=== PATIENT | male | born 1955 | race Caucasian/White ===

== ENCOUNTER 2016-08-24 17:13 | Inpatient (IN) ==
[2016-08-24] MEDS ORDERED: Ondansetron 4 MG/2 ML VIAL IVP PRN (22:44)
[2016-08-24] MEDS ORDERED: Naloxone 0.4 MG/ML INJ IVP PRN (22:44)
[2016-08-24] MEDS ORDERED: Acetaminophen 325 MG TABLET PO PRN (22:44)
[2016-08-24] MEDS ORDERED: *HR* Dextrose 50 % in Water (Syg) 50 ML SYRINGE IVP PRN (22:48)
[2016-08-24] MEDS ORDERED: Dextrose Gel 15 GM PO PRN ×2 (22:48)
[2016-08-24] MEDS ORDERED: D5% in Water 1,000 ML IV PRN (22:48)
[2016-08-24] MEDS ORDERED: NON-FORMULARY MEDICATION 1 EACH EACH (Insulin Glargine [Lantus] 40 UNIT) SQ SCH (23:00)
--- NOTE | 2016-08-24 23:09 | Internal Med History&Physical ---
<Jillian Gomez - Last Filed: 08/24/16 23:38> Date of Encounter: 08/24/16 Time of Encounter: 20:30 Assessment and Plan (1) Elevated troponin I level Current visit: No Status: Acute 1 patient has elevated troponin at 0.11. Suspect this is related to demand ischemia we will continue to cycle cardiac troponins 2 we will consult cardiology 3 continuous cardiac monitoring (2) COPD exacerbation Current visit: No Status: Acute 1 presently no wheezing noted patient has been experiencing increasing shortness of breath with exertion he is now on any oxygen supplementation at home. He has history of COPD. We will place on oxygen and titrate to maintain SPO2 greater than 92% 2 we will continue with bronchodilators as needed (3) CAD (coronary artery disease) Current visit: No Status: Chronic 1 patient has history of coronary artery disease with stent placements. We will continue with beta lena nitrates aspirin and statin. 2 cardiac diet 3 oxygen as needed Qualifiers: Coronary Disease-Associated Artery/Lesion type: [place] artery [place] vs. transplanted heart: [place] heart Associated angina: without angina Qualified Code(s): I25.10 - Atherosclerotic heart disease of [place] coronary artery without angina pectoris (4) Chronic kidney disease, stage III (moderate) Current visit: No Status: Chronic Patient's creatinine is 1.37 which appears to be around his baseline 1.3-1.4. We will continue to monitor creatinines 2 we will avoid nephrotoxins 3 today weighing monitor intake and output 4 renal diet (5) DM type 2 (diabetes mellitus, type 2) Current visit: No Status: Chronic 1 patient is on insulin it appears his last A1c was around 10.1 in April 2016. We will continue with home basal insulin Accu-Cheks before meals and at bedtime sliding scale insulin as needed 2 diabetic diet Qualifiers: Diabetes mellitus complication status: with kidney complications Diabetes mellitus complication detail: with chronic kidney disease Diabetes mellitus technician terminal and repeater insulin use: with technician terminal and repeater use Chronic kidney disease stage: stage 3 (moderate) Qualified Code(s): E11.22 - Type 2 diabetes mellitus with diabetic chronic kidney disease; N18.3 - Chronic kidney disease, stage 3 ( moderate); Z79.4 - prison (current) use of insulin (6) Diastolic heart failure Current visit: No Status: Chronic 1 patient has history of diastolic heart failure. BNP is 422. At present time he does not appear to be fluid overloaded lung sounds are clear x-rays clear he does have some edema. We will continue with Lasix 2 oxygen as needed to maintain SPO2 greater 90% 3 low sodium diet Qualifiers: Heart failure chronicity: chronic Qualified Code(s): I50.32 - Chronic diastolic (congestive) heart failure (7) Essential hypertension Current visit: Yes Status: Acute 1 presently blood pressure is elevated patient has not taken medication today we will continue with his home lisinopril metoprolol Lasix. Goal is to maintain systolic less than 140 (8) DVT prophylaxis Current visit: Yes Status: Acute 1 heparin subcutaneous Internal Medicine - H&P: HPI Chief complaint: SOB Admitted From: Hospital to Hospital Transfer Plans for Post Hospital Care: Home History of present illness: Mr. Rodriguez is a 61 year old male with past medical history of CHF COPD CVA diabetes hyperlipidemia hypertension. According to patient's he has been expressing increasing shortness of breath particularly on exertion for the past 2-3 days. He has a history of COPD and emphysema he is not on any oxygen at home . He has increased wheezing and tightness which are not relieved with his handheld inhalers He denies any cough or sputum production fevers or chills. He does complain of a pain in his right posterior chest that radiates to subscapular region. He describes it as an ache that comes and goes and exacerbated with movement of his right arm. He has chronic swelling to his lower extremities however he has noticed increased body swelling particularly his abdomen and weight gain of approximately 50 pails over the past 2-3 months. He has history of CO in the past with stent placement last stent was placed in May. He also has a history of renal failure and was on dialysis for 4- 5 months. He has not followed up with nephrology. He was recently prescribed CPAP at night however is unable to use it due to he does not have electricity in his trailer. He denies any nausea vomiting diarrhea sick exposures. He presented to the [place] emergency department for complaints of shortness of breath. According to ER records the patient's chest x-ray was without any acute process. EKG with normal sinus rhythm and no ST-T wave abnormalities He had no leukocytosis Chem-7 was unremarkable except for an elevated blood sugar. His troponin was 0.011 BNP 422. He was transferred to [facility] for further workup and evaluation. At present time the patient is sitting up on side of bed joking with the nursing staff and eating a sandwich. He denies any chest pain or shortness of breath this time. His blood pressure is elevated however he states he has not taken any of his medication today. I reviewed this case with Dr. Johnson who agrees with plan Past Med Surg Social Fam HX - Past Medical History Medical history: arthritis, CHF, COPD, CVA, diabetes, hyperlipidemia, hypertension, myocardial infarction, renal disease, other Psychiatric history: anxiety, depression - Past Surgical History Surgical History: angioplasty/stent, other - Social History Smoking Status: Former smoker Smokeless Tobacco Status: No Alcohol use: none Drug use: marijuana - Family History Mother Adopted: No Family Member Ethnicity: Non- Living Status: Still Living Hx Family Cardiac Disorders: Yes (HTN) Hx Family Respiratory Disorders: Yes (COPD) Hx Family Cancer: No Hx Family GI Disorders: Yes (ulcers) Hx Family Endocrine Disorder: Yes (Diabetes) Hx Family Neuromuscular Disorders: No Hx Family Neurologic Disorders: No Hx Family HEENT Disorders: No Hx Family Autoimmune Disorders: No Father Adopted: [place]: THANH Family Member Ethnicity: Non- Living Status: Age at : 70 Cause of : LUNG DISEASE Hx Family Respiratory Disorders: Yes Internal Medicine - H&P: Meds Clopidogrel [Plavix] 75 mg PO DAILY 02/23/15 [History] Diazepam [Valium] 5 mg PO DAILY PRN 05/31/15 [History] Gabapentin [Neurontin] 200 mg PO BID 06/17/15 [History] Lisinopril [Zestril] 40 mg PO DAILY #30 tablet 06/20/15 [Rx] Isosorbide MONOnitrate (24 HR) [Imdur] 60 mg PO DAILY #30 tab.er.24h 12/13/15 [ Rx] Metoprolol XL (24 HR) Succ [Toprol Xl] 100 mg PO DAILY #30 tab.er.24h 12/13/15 [ Rx] Atorvastatin Calcium [Lipitor] 80 mg PO HS 12/25/15 [History] Furosemide [Lasix] 40 mg PO DAILY 12/25/15 [History] Insulin Glargine [Lantus] 40 unit SQ BID 04/24/16 [History] Albuterol Sulfate [Albuterol Inhaler] 1 - 2 puff IH Q4-6H PRN 08/24/16 [History] Allopurinol [Zyloprim 100 MG] 200 mg PO DAILY 08/24/16 [History] Calcium Carbonate [Calcium] 500 mg PO BID 08/24/16 [History] Insulin ASPART [Novolog Flexpen] 15 unit SQ TIDWM 08/24/16 [History] Tramadol HCl [Ultram] 50 mg PO QID PRN 08/24/16 [History] Allergies No Known Allergies Allergy (Verified 12/11/15 12:35) All Systems PM: A 10-system review of systems was performed and is negative for pertinent findings except as documented above in the HPI. - Constitutional Constitutional: fatigue, weight gain - Cardiovascular Cardiovascular ROS IM: chest pain, dyspnea on exertion - Respiratory Respiratory: dyspnea on exertion, wheezing - Gastrointestinal Gastrointestinal: no abdominal pain, no diarrhea, no hematemesis, no hematochezia, no melena, no nausea, no vomiting - Musculoskeletal Musculoskeletal ROS IM: no numbness, no tingling - Neurological Neurological ROS: no confusion, no convulsions, no focal weakness, no numbness, no tingling, no tremor(s) - Constitutional Vitals: Temp Pulse Resp BP Pulse Ox 97.4 F L 81 18 183/114 95 08/24/16 19:40 08/24/16 19:40 08/24/16 19:40 08/24/16 19:40 08/24/16 19:40 General appearance: Present: morbidly obese, answers questions appropriately - Head Head exam: Present: atraumatic, normocephalic - Eye Eye exam: Present: PERRL, conjuntiva pink, sclera anicteric Pupils: Present: PERRL - Respiratory Respiratory exam: Present: CTAB. Absent: accessory muscle use, rales, rhonchi, wheezes - Cardiovascular Cardiovascular exam: Present: RRR, +S1, +S2. Absent: diastolic murmur, gallop, rubs, systolic murmur - GI/Abdominal GI/Abdominal exam: Present: normal bowel sounds, soft, no peritoneal signs. Absent: distended, tenderness - Extremities Exam Extremities exam: Present: warm, radial pulses palpable and symetrical. Absent : calf tenderness, cyanotic, pedal edema - Neurological Exam Neurological exam: Present: CN II-XII intact, oriented X3, no focal deficits. Absent: pronater drift, facial droop, speech deficit - Skin Skin exam: Present: dry, intact Internal Med - H&P Results - Labs Labs: Lab work per [facility] 08/24/2016 CBC WBC 7.6, hemoglobin 14, hematocrit 44, platelets 2:15 PT 12.1, INR 1.1 PTT 34.2 Sodium 139, potassium 4.7, chloride 105 bicarbonate 24 BUN 22 creatinine 1.37 glucose 306 Troponin 0.11 BNP 422 - EKG Data EKG shows normal: sinus rhythm - Diagnostic Studies Chest x-ray Additional comments: No acute process per radiology reading <Sharon Johnson - Last Filed: 08/25/16 19:49> Date of Encounter: 08/24/16 Internal Medicine - H&P: HPI History of present illness: Mr. Rodriguez is a 61 year old male All Systems PM: A 10-system review of systems was performed and is negative for pertinent findings except as documented above in the HPI. - Constitutional Vitals: Temp Pulse Resp BP Pulse Ox 98.2 F 76 17 162/80 98 08/25/16 18:44 08/25/16 18:44 08/25/16 18:44 08/25/16 18:44 08/25/16 18:44 Internal Med - H&P Results - Labs CBC & Chem 7: 08/25/16 04:34 08/25/16 04:34 Labs: Short CBC 08/25/16 Range/Units 04:34 WBC 8.5 (4.3-11.1) K/mcL Hgb 13.8 (12.9-16.9) g/dL Hct 44.8 (37.5-50.1) % Plt Count 226 (140-400) K/mcL Neutrophils # 4.9 (1.6-8.9) K/mcL BMP 08/25/16 04:34 Sodium 138 Potassium 4.0 Chloride 105 Carbon Dioxide 24 BUN 26 Creatinine 1.50 H Glucose 192 H Calcium 8.8 Cardiac Enzymes 08/24/16 08/25/16 Range/Units 23:02 04:34 Troponin I 0.09 H* 0.07 H* (0-0.03) ng/mL Urine 08/25/16 Range/Units 14:52 Urine Color Yellow (Yellow) Urine Clarity Clear (Clear) Urine pH 5.5 (5.0-8.0) pH Units Ur Specific [place] 1.012 (1.010-1.025) Urine Protein 100 H (Neg-Trace) mg/dL Urine Glucose (UA) 100 H (Normal) mg/dL - Attending Attestation I examined this patient and my medical decision-making was reviewed with the COMMUNICATION PROFESSOR/PA/Advanced Practice Nurse/Resident Physician. I agree with the documented findings, disposition and treatment plan as described except to the extent set forth below. 61 Y/M with h/o COPD, CKD stage 3 (prior h/o temporary hemodialysis per pt), presents with SOB, orthopnea for long time. COPD exacerbation, volume overload. Troponin 0.11. Treat with IV lasix, brochodilators. Low sodium diet, fluid restriction. Cardiology and Nephrology consult.
[2016-08-24] MEDS: Insulin DETEMIR 100 UNIT/ML X5UNITS SQ SCH (23:17)
[2016-08-24] MEDS: Insulin LISPRO 300 UNITS/3 ML VIAL SQ SCH (23:19)
[2016-08-24] MEDS: Lisinopril 20 MG TABLET PO SCH (23:19)
[2016-08-24] MEDS: Metoprolol XL (24 HR) Succ 50 MG TAB.ER.24H PO SCH (23:19)
[2016-08-24] MEDS: *HR* HYDROcodone/Acet 5/325 mg TABLET PO PRN (23:19)
[2016-08-25] MEDS: Furosemide 40 MG/4 ML VIAL IVP SCH ×2 (00:29→08:06)
[2016-08-25] MEDS: Albuterol 2.5 MG/3 ML NEBULIZER IH SCH ×4 (03:55→21:06)
[2016-08-25 05:02] LABS: Basophils % 0.4 %; Eosinophils # 0.5 K/mcL (0.0-0.6); Eosinophils % 5.9 %; Hematocrit 44.8 % (37.5-50.1); Hemoglobin 13.8 g/dL (12.9-16.9); Immature Granulocytes % 0.4 % (0-4); Lymphocytes # 2.5 K/mcL (0.6-4.6); Lymphocytes % 29.6 %; Mean Corpuscular HGB Conc 30.8 g/dL (31.6-35.5); Mean Corpuscular Hemoglobin 25.3 pg (28.0-33.3); Mean Corpuscular Volume 82.2 fL (83.0-100.0); Monocytes # 0.6 K/mcL (0.0-1.3); Monocytes % 6.7 %; Neutrophils # 4.9 K/mcL (1.6-8.9); Platelet Count 226 K/mcL (140-400); Red Blood Count 5.45 M/mcL (4.19-5.50); Red Cell Distribution Width 14.8 % (11.5-14.5)
[2016-08-25 05:21] LABS: Calcium 8.8 mg/dL (8.6-10.8); Chol/HDL Ratio 4.3 (0-4.9); Magnesium 1.6 mg/dL (1.6-2.6)
[2016-08-25] MEDS: *HR* Heparin 5,000 UNIT/ML VIAL SQ SCH ×2 (06:06→16:04)
[2016-08-25] MEDS: diazePAM 5 MG TABLET PO PRN (08:04)
[2016-08-25] MEDS: Gabapentin 100 MG CAPSULE PO SCH ×2 (08:04→21:18)
[2016-08-25] MEDS: Lisinopril 20 MG TABLET PO SCH (08:04)
[2016-08-25] MEDS: Isosorbide MONOnitrate (24 HR) 60 MG TAB.ER.24H PO SCH (08:04)
[2016-08-25] MEDS: Metoprolol XL (24 HR) Succ 50 MG TAB.ER.24H PO SCH (08:04)
[2016-08-25] MEDS: *HR* HYDROcodone/Acet 5/325 mg TABLET PO PRN ×5 (08:05→17:55)
[2016-08-25] MEDS: Insulin LISPRO 300 UNITS/3 ML VIAL SQ SCH ×4 (08:07→21:17)
[2016-08-25] MEDS: Insulin DETEMIR 100 UNIT/ML X5UNITS SQ SCH ×2 (08:40→21:18)
--- NOTE | 2016-08-25 12:47 | Cardiology Consult Note ---
Date of Encounter: 08/25/16 Time of Encounter: 12:44 Assessment and Plan (1) COPD exacerbation Current Visit: No Status: Acute Defer to admitting service. (2) Congestive heart failure with left ventricular diastolic dysfunction, NYHA class 1 Current Visit: No Status: Acute Diuresis as renal function tolerates. Creatinine is up slightly today. (3) CAD (coronary artery disease) Current Visit: No Status: Chronic Previous sxs were mostly TIWARI --similar to current presentation. I suspect sxs mostly Pulm in origin - but recommend Joann-Stress to assess Echo also ordered. Qualifiers: Coronary Disease-Associated Artery/Lesion type: [place] artery [place] vs. transplanted heart: [place] heart Associated angina: without angina Qualified Code(s): I25.10 - Atherosclerotic heart disease of [place] coronary artery without angina pectoris (4) Chronic kidney disease, stage III (moderate) Current Visit: No Status: Chronic Creatinine up slightly - would diurese as possible. Discussion w patient/family: The assessment and plan as outlined above was discussed with the patient and/or family members who expressed understanding and agreement. All questions were answered. Thank you for involving us in the care of your patient. Please call with any questions. History of Present Illness Consult date: 08/25/16 Consult reason: SOB Chief complaint: same History of present illness: Mr. Rodriguez is a 61 year old male with known CAD, COPD, and multiple CV risk factors presents with complaints of progressive SOB with minimal exertion ( walking to the bathroom). Denies any chest pain or pressure - but reports this SOB is identical to his previous [place] sxs. Reports that he has some chronic LE edema - unchanged lately. Denies any other recent sxs. Work up has been notable for trivial increase in Trop, no acute EKG changes. Creatinine is elevated. Denies any other recent issues. Past Med Surg Social Fam HX - Past Medical History Medical history: arthritis, CHF, COPD, CVA, diabetes, hyperlipidemia, hypertension, myocardial infarction, renal disease, other Psychiatric history: anxiety, depression - Past Surgical History Surgical History: angioplasty/stent, other - Social History Smoking Status: Former smoker Smokeless Tobacco Status: No Alcohol use: none Drug use: marijuana - Family History Mother Adopted: No Family Member Ethnicity: Non- Living Status: Still Living Hx Family Cardiac Disorders: Yes (HTN) Hx Family Respiratory Disorders: Yes (COPD) Hx Family Cancer: No Hx Family GI Disorders: Yes (ulcers) Hx Family Endocrine Disorder: Yes (Diabetes) Hx Family Neuromuscular Disorders: No Hx Family Neurologic Disorders: No Hx Family HEENT Disorders: No Hx Family Autoimmune Disorders: No Father Adopted: [place]: THANH Family Member Ethnicity: Non- Living Status: Age at : 70 Cause of : LUNG DISEASE Hx Family Respiratory Disorders: Yes Medications and Allergies Clopidogrel [Plavix] 75 mg PO DAILY 02/23/15 [History] Diazepam [Valium] 5 mg PO DAILY PRN 05/31/15 [History] Gabapentin [Neurontin] 200 mg PO BID 06/17/15 [History] Lisinopril [Zestril] 40 mg PO DAILY #30 tablet 06/20/15 [Rx] Isosorbide MONOnitrate (24 HR) [Imdur] 60 mg PO DAILY #30 tab.er.24h 12/13/15 [ Rx] Metoprolol XL (24 HR) Succ [Toprol Xl] 100 mg PO DAILY #30 tab.er.24h 12/13/15 [ Rx] Atorvastatin Calcium [Lipitor] 80 mg PO HS 12/25/15 [History] Furosemide [Lasix] 40 mg PO DAILY 12/25/15 [History] Insulin Glargine [Lantus] 40 unit SQ BID 04/24/16 [History] Albuterol Sulfate [Albuterol Inhaler] 1 - 2 puff IH Q4-6H PRN 08/24/16 [History] Allopurinol [Zyloprim 100 MG] 200 mg PO DAILY 08/24/16 [History] Calcium Carbonate [Calcium] 500 mg PO BID 08/24/16 [History] Insulin ASPART [Novolog Flexpen] 15 unit SQ TIDWM 08/24/16 [History] Tramadol HCl [Ultram] 50 mg PO QID PRN 08/24/16 [History] Allergies No Known Allergies Allergy (Verified 12/11/15 12:35) All Systems Review: A 10-system review of systems was performed and is negative for pertinent findings except as documented above in the HPI. - Cardiovascular Cardiovascular: dyspnea at rest, dyspnea on exertion, leg edema, no chest pain at rest, no chest pain with exertion, no palpitations, no syncope - Respiratory Respiratory: cough, dyspnea, wheezing - Gastrointestinal Gastrointestinal: no abdominal pain Physical Examination Vital Signs, Last 4 Hours Temp Pulse Resp BP Pulse Ox 08/25/16 12:19 97.5 F L 65 16 145/77 94 L General: Conversant, No Apparent Distress, Other (obese, able to lay flat) HEENT: Atraumatic, Normocephaly Neck: No JVD, Normal carotid pulses Cardiac: Reg Rate and Rhythm, Normal S1 and S2 Lungs: Other (Wheezing noted Bilaterally, decreased air movement) Neuro: Alert and responsive, No focal deficits noted Abdomen: Soft, Non-Tender Skin: No rashes noted on visualized skin Musculoskeletal: No Chest Wall Tenderness Extremities: No Clubbing, Other (+ BLE edema) Results 08/25/16 04:34 08/25/16 04:34 Lab Results 08/24/16 08/25/16 08/25/16 23:02 04:34 04:34 WBC 8.5 Hgb 13.8 Hct 44.8 Plt Count 226 Sodium 138 Potassium 4.0 Chloride 105 Carbon Dioxide 24 BUN 26 Creatinine 1.50 H Glucose 192 H Calcium 8.8 Magnesium 1.6 Troponin I 0.09 H* 08/25/16 04:34 WBC Hgb Hct Plt Count Sodium Potassium Chloride Carbon Dioxide BUN Creatinine Glucose Calcium Magnesium Troponin I 0.07 H* - Imaging and Cardiology Chest Xray: report reviewed - EKG Interpretation EKG results cardiology: personally reviewed, no diagnostic ischemia Consult Discharge Plan - Plan Referrals: NO,PCP [Primary Care Provider] -
--- NOTE | 2016-08-25 13:50 | Nephrology Consult Note ---
Date of Encounter: 08/25/16 Time of Encounter: 13:00 Assessment and Plan (1) DELORIS (acute kidney injury) Current Visit: Yes Status: Acute Mildly elevated SCr from baseline in the setting of CHF exacerbation with diuretic use Agree with holding iv diuretics at this point as patient does not appear significantly fluid overloaded Continue low sodium diet Continue strict I/Os Continue fluid restriction will check urine for UA, sodium, urea, creatinine and protein will consider holding lisinopril if SCr continues to worsen (2) CKD (chronic kidney disease) stage 3, GFR 30-59 ml/min Current Visit: Yes Status: Acute SCr on presentation was 1.37, GFr 53 baseline suspected (3) Elevated troponin I level Current Visit: No Status: Acute Cardiac workup per cardiology and primary team History of Present Illness - Reason for Consult Consult date: 08/25/16 Chronic Kidney Disease Requesting physician: Jillian Gomez - History of Present Illness 61 y o male with PMH of DM, HTN, CAD with CHF, COPD and stage 3 CKD s/p DELORIS due to diuretics requiring transient HD jaya several weeks now off as of 02/2016 admitted for progressive SOB of several days duration. renal consulted as patient insisted on it as he is afraid of another DELORIS which he had under similar circumstances, he is requesting my colleague, Dr Perdomo who is not oncal for the practice. I did explain that I was representing Dr Perdomo and will inform him of his admission.His SCr on presentation was noted at 1.37, GFR 53 and worsen to 1.5, GFR 47 overnight. He did receive a dose of lasix in that time period. He reports his wheezing has significantly improved and his LE edema is down to trace amounts. He denies any urinary sxs. No current NSAIDs use. He missed his ffice appointment with Dr Perdomo for followup after release from the HD unit as he was having a sleep study Past Med Surg Social Fam HX - Past Medical History Medical history: arthritis, CHF, COPD, CVA, diabetes, hyperlipidemia, hypertension, myocardial infarction, renal disease, other Psychiatric history: anxiety, depression - Past Surgical History Surgical History: angioplasty/stent, other - Social History Smoking Status: Former smoker Smokeless Tobacco Status: No Alcohol use: none Drug use: marijuana - Family History Mother Adopted: No Family Member Ethnicity: Non- Living Status: Still Living Hx Family Cardiac Disorders: Yes (HTN) Hx Family Respiratory Disorders: Yes (COPD) Hx Family Cancer: No Hx Family GI Disorders: Yes (ulcers) Hx Family Endocrine Disorder: Yes (Diabetes) Hx Family Neuromuscular Disorders: No Hx Family Neurologic Disorders: No Hx Family HEENT Disorders: No Hx Family Autoimmune Disorders: No Father Adopted: [place]: THANH Family Member Ethnicity: Non- Living Status: Age at : 70 Cause of : LUNG DISEASE Hx Family Respiratory Disorders: Yes Medications and Allergies Clopidogrel [Plavix] 75 mg PO DAILY 02/23/15 [History] Diazepam [Valium] 5 mg PO DAILY PRN 05/31/15 [History] Gabapentin [Neurontin] 200 mg PO BID 06/17/15 [History] Lisinopril [Zestril] 40 mg PO DAILY #30 tablet 06/20/15 [Rx] Isosorbide MONOnitrate (24 HR) [Imdur] 60 mg PO DAILY #30 tab.er.24h 12/13/15 [ Rx] Metoprolol XL (24 HR) Succ [Toprol Xl] 100 mg PO DAILY #30 tab.er.24h 12/13/15 [ Rx] Atorvastatin Calcium [Lipitor] 80 mg PO HS 12/25/15 [History] Furosemide [Lasix] 40 mg PO DAILY 12/25/15 [History] Insulin Glargine [Lantus] 40 unit SQ BID 04/24/16 [History] Albuterol Sulfate [Albuterol Inhaler] 1 - 2 puff IH Q4-6H PRN 08/24/16 [History] Allopurinol [Zyloprim 100 MG] 200 mg PO DAILY 08/24/16 [History] Calcium Carbonate [Calcium] 500 mg PO BID 08/24/16 [History] Insulin ASPART [Novolog Flexpen] 15 unit SQ TIDWM 08/24/16 [History] Tramadol HCl [Ultram] 50 mg PO QID PRN 08/24/16 [History] Allergies No Known Allergies Allergy (Verified 12/11/15 12:35) Review of Systems All Systems: reviewed and no additional remarkable complaints except as stated ( 10 systems reviewed) Exam - Vital Signs Vital signs: Initial Vital Signs Temp Pulse Resp BP Pulse Ox 97.4 F L 81 18 183/114 95 08/24/16 19:40 08/24/16 19:40 08/24/16 19:40 02/10/17 19:40 08/24/16 19:40 Vital Signs - Last 8 Hours Temp Pulse Resp BP Pulse Ox 08/25/16 12:19 97.5 F L 65 16 145/77 94 L 08/25/16 07:58 96 08/25/16 07:33 97.5 F L 67 18 148/91 96 Intake and Output 08/24/16 08/25/16 08/25/16 23:59 07:59 15:59 Intake Total 237 / 237 800 / 800 240 / 240 Output Total 400 / 400 1825 / 1825 Balance -163 / -163 -1025 / -1025 240 / 240 Intake: Oral 237 / 237 800 / 800 240 / 240 Output: Urine 400 / 400 1825 / 1825 Other: Meal Lunch Percent of Meal Consumed 95% Weight 143.063 kg 143 kg Blood Glucose* 323 222 Patient Weight 08/25/16 23:59 Weight 143 kg - General Appearance General appearance: chronically ill (NAD) EENT: ATNC, mucous membranes moist Neck: no JVD, supple Additional Comments: good areation bilat Cardiology: edema (trace LE edema bilat), normal S1, normal S2 Gastrointestinal: no tenderness, no guarding, obese Integumentary: warm and dry, chronic venous stasis Neurologic: no focal deficit Musculoskeletal: no deformities Psychiatric: mood/affect appropriate, cooperative Results - Lab Results 08/25/16 04:34 08/25/16 04:34 Most recent lab results Calcium 8.8 mg/dL (8.6-10.8) 08/25/16 04:34 Magnesium 1.6 mg/dL (1.6-2.6) 08/25/16 04:34 Consult Discharge Plan - Plan Referrals: NO,PCP [Primary Care Provider] -
[2016-08-25 15:02] LABS: Bilirubin,Urine Negative (Negative); Blood,Urine Trace (Negative); Clarity,Urine Clear (Clear); Color,Urine Yellow (Yellow); Glucose,Urine (UA) 100 mg/dL (Normal); Ketones,Urine Negative (Negative); Leukocyte Esterase,Urine Negative (Negative); Nitrite,Urine Negative (Negative); PH,Urine 5.5 pH Units (5.0-8.0); Protein,Urine 100 mg/dL (Neg-Trace); Specific Gravity,Urine 1.012 (1.010-1.025); Urobilinogen,Urine Normal (Normal)
[2016-08-25 15:03] LABS: Bacteria,Urine None Seen per hpf (None-Few); Hyaline Casts,Urine None Seen per lpf (None-Few); RBC,Urine 0-3 per hpf (0-3); Squamous Epithelial Cell,Urine Many per lpf (None-Few); WBC,Urine 0-3 per hpf (0-3)
[2016-08-25 15:44] LABS: Protein/Creatinine Ratio,Urine 3.36 mg/mg (0-0.20)
--- NOTE | 2016-08-25 17:49 | Internal Med Progress Note ---
Date of Encounter: 08/25/16 Time of Encounter: 10:00 - Assessment and plan (1) Chest pain Current Visit: No Status: Acute Assessment and plan: Has resolved. Mild elevated troponin trended down, possibly demand ischemia. Cardiology consult appreciated. Qualifiers: Chest pain type: other chest pain Qualified Code(s): R07.89 - Other chest pain; R07.8 - Other chest pain (2) CKD (chronic kidney disease) stage 3, GFR 30-59 ml/min Current Visit: Yes Status: Acute Assessment and plan: Most likely Caused by diabetes. Creatinine is about at his baseline. Will closely monitor renal function and careful diuretic. (3) Essential hypertension Current Visit: Yes Status: Acute Assessment and plan: Continue home medication. Will hold lisinopril if renal function getting worse. (4) Acute on chronic kidney failure Current Visit: No Status: Acute Assessment and plan: Patient is very sensitive to Lasix. Will give careful diuretics and follow renal function. Nephrology consult appreciated. (5) COPD exacerbation Current Visit: No Status: Acute Assessment and plan: Continue steroids and bronchodilator (6) Elevated troponin I level Current Visit: No Status: Acute Assessment and plan: Trend down. Scheduled stress test. (7) CAD (coronary artery disease) Current Visit: No Status: Chronic Qualifiers: Coronary Disease-Associated Artery/Lesion type: [place] artery [place] vs. transplanted heart: [place] heart Associated angina: without angina Qualified Code(s): I25.10 - Atherosclerotic heart disease of [place] coronary artery without angina pectoris (8) Diastolic heart failure Current Visit: No Status: Chronic Assessment and plan: Mild diuretic. Supportive treatment. Qualifiers: Heart failure chronicity: chronic Qualified Code(s): I50.32 - Chronic diastolic (congestive) heart failure (9) Morbid obesity Current Visit: No Status: Chronic Assessment and plan: Need lifestyle modification. Qualifiers: Obesity type: due to excess calories Qualified Code(s): E66.01 - Morbid ( severe) obesity due to excess calories (10) DVT prophylaxis Current Visit: Yes Status: Acute Assessment and plan: Heparin SC - Time Spent With Patient 25 - 35 minutes - Subjective Interval history: Patient is a 61-year-old male admitted with shortness of breath. His past medical history is significant for CHF, COPD, CVA, diabetes, hyperlipidemia, hypertension, CAD, CKD. Patient was seen and examined, his less shortness of breath after treatment. Denies chest pain. No nausea no vomiting. Vital signs stable. Cardiology and nephrology consult appreciated. We will continue supportive treatment and closely monitor patient. Patient said that he is very sensitive to Lasix, which caused renal dysfunction and ended up to dialysis previously. Will give mild diuretic and closely monitor renal function. - Constitutional Vitals: Temp Pulse Resp BP Pulse Ox 97.6 F 69 16 145/77 99 08/25/16 15:32 08/25/16 15:32 08/25/16 15:32 08/25/16 12:19 08/25/16 15:32 General appearance: Present: A&O X 3, morbidly obese, answers questions appropriately - Head Head exam: Present: atraumatic, normocephalic - Eye Eye exam: Present: PERRL, conjuntiva pink, sclera anicteric Pupils: Present: PERRL - Neck Neck exam general surgery: Present: supple, trachea midline. Absent: lymphadenopathy - Respiratory Respiratory exam: Present: CTAB, wheezes (Mild wheezes bilaterally). Absent: accessory muscle use, rales, rhonchi - Cardiovascular Cardiovascular exam: Present: RRR, +S1, +S2. Absent: diastolic murmur, gallop, rubs, systolic murmur - GI/Abdominal GI/Abdominal exam: Present: normal bowel sounds, soft, no peritoneal signs. Absent: distended, tenderness - Extremities Exam Extremities exam: Present: warm, radial pulses palpable and symetrical. Absent : calf tenderness, cyanotic, pedal edema - Neurological Exam Neurological exam: Present: CN II-XII intact, oriented X3, no focal deficits. Absent: pronater drift, facial droop, speech deficit - Skin Skin exam: Present: dry, intact Internal Medicine: Result - Labs CBC & Chem 7: 08/25/16 04:34 08/25/16 04:34 Labs: Short CBC 08/25/16 Range/Units 04:34 WBC 8.5 (4.3-11.1) K/mcL Hgb 13.8 (12.9-16.9) g/dL Hct 44.8 (37.5-50.1) % Plt Count 226 (140-400) K/mcL Neutrophils # 4.9 (1.6-8.9) K/mcL BMP 08/25/16 04:34 Sodium 138 Potassium 4.0 Chloride 105 Carbon Dioxide 24 BUN 26 Creatinine 1.50 H Glucose 192 H Calcium 8.8 Cardiac Enzymes 08/24/16 08/25/16 Range/Units 23:02 04:34 Troponin I 0.09 H* 0.07 H* (0-0.03) ng/mL Urine 08/25/16 Range/Units 14:52 Urine Color Yellow (Yellow) Urine Clarity Clear (Clear) Urine pH 5.5 (5.0-8.0) pH Units Ur Specific [place] 1.012 (1.010-1.025) Urine Protein 100 H (Neg-Trace) mg/dL Urine Glucose (UA) 100 H (Normal) mg/dL Consult Discharge Plan - Plan Referrals: NO,PCP [Primary Care Provider] -
[2016-08-25] MEDS: predniSONE 20 MG TABLET PO SCH (19:55)
[2016-08-25] MEDS ORDERED: Insulin LISPRO 300 UNITS/3 ML VIAL SQ SCH (21:00)
[2016-08-26] MEDS: Albuterol 2.5 MG/3 ML NEBULIZER IH SCH ×4 (03:21→21:25)
[2016-08-26] MEDS: *HR* Heparin 5,000 UNIT/ML VIAL SQ SCH ×2 (06:24→17:44)
[2016-08-26] MEDS: *HR* HYDROcodone/Acet 5/325 mg TABLET PO PRN ×4 (07:27→18:15)
[2016-08-26] MEDS ORDERED: Regadenoson 0.4 MG/5 ML SYRINGE IVP ONE (07:30)
[2016-08-26] MEDS ORDERED: Perflutren Lipid Microsphere 1.3 ML in 0.9 % Sodium Chloride 8.7 ML IVP ONE (07:37)
[2016-08-26] MEDS ORDERED: Perflutren Lipid Microsphere 2 ML VIAL ONE (07:40)
[2016-08-26 08:11] LABS: Potassium 4.9 mEq/L (3.5-4.5)
[2016-08-26 08:12] LABS: Basophils % 0.1 %; Eosinophils % 0.1 %; Hematocrit 44.6 % (37.5-50.1); Hemoglobin 13.7 g/dL (12.9-16.9); Immature Granulocytes % 0.6 % (0-4); Lymphocytes # 0.7 K/mcL (0.6-4.6); Lymphocytes % 10.6 %; Mean Corpuscular HGB Conc 30.7 g/dL (31.6-35.5); Mean Corpuscular Volume 81.2 fL (83.0-100.0); Mean Platelet Volume 12.2 fL (9.4-12.4); Monocytes # 0.1 K/mcL (0.0-1.3); Monocytes % 2.1 %; Neutrophils # 5.9 K/mcL (1.6-8.9); Platelet Count 217 K/mcL (140-400); Red Blood Count 5.49 M/mcL (4.19-5.50); Red Cell Distribution Width 14.4 % (11.5-14.5); Segmented Neutrophils % 86.5 %
--- NOTE | 2016-08-26 08:24 | Cardiology Progress Note ---
Date of Encounter: 08/26/16 Time of Encounter: 08:00 Assessment and Plan (1) CAD (coronary artery disease) Current Visit: No Status: Chronic Previous sxs were mostly TIWARI --similar to current presentation. I suspect sxs mostly Pulm in origin - but recommend Joann-Stress to assess Echo also ordered. Denies recurrent symptoms overnight. Patient seen and stress lab. Stress test and echocardiogram will be resulted later this morning. Qualifiers: Coronary Disease-Associated Artery/Lesion type: [place] artery [place] vs. transplanted heart: [place] heart Associated angina: without angina Qualified Code(s): I25.10 - Atherosclerotic heart disease of [place] coronary artery without angina pectoris (2) Essential hypertension Current Visit: Yes Status: Acute The pressures noted to be elevated throughout stay. Blood pressure is 146/74 to 194/73. Add Norvasc. Low-sodium diet recommended. (3) COPD exacerbation Current Visit: No Status: Acute Defer to admitting service. Discussion w patient/family: The assessment and plan as outlined above was discussed with the patient and/or family members who expressed understanding and agreement. All questions were answered. Thank you for involving us in the care of your patient. Please call with any questions. Subjective Principal diagnosis: Dyspnea, COPD exacerbation Interval history: Mr. Rodriguez denies recurrent symptoms overnight. He states he is not able to wear CPAP because it makes him feel uncomfortable. Patient was seen in the stress lab. Stress test results are pending. Objective Vital Signs, Last 4 Hours Temp Pulse Resp BP Pulse Ox 08/26/16 07:04 97.5 F L 88 18 174/78 96 General: Conversant, No Apparent Distress HEENT: Atraumatic, Normocephaly, Mucus Membranes Moist Neck: No JVD, Normal carotid pulses Cardiac: Reg Rate and Rhythm, Normal S1 and S2, No Murmur, Other (Sinus rhythm on EKG) Lungs: Normal Breath Sounds, No Wheeze, Rales, Rhonchi, Other (Diminished in bases) Neuro: Alert and responsive, No focal deficits noted Abdomen: Soft, Non-Tender Skin: No rashes noted on visualized skin Musculoskeletal: No Chest Wall Tenderness Extremities: No Clubbing, No Cyanosis, No Edema, Normal Pulses Results 08/26/16 07:16 08/25/16 04:34 Lab Results 08/26/16 07:16 WBC 6.8 Hgb 13.7 Hct 44.6 Plt Count 217 - Imaging and Cardiology Stress Test: pending - EKG Interpretation EKG results cardiology: personally reviewed (Normal sinus rhythm with no acute ST changes.) Consult Discharge Plan - Plan Referrals: NO,PCP [Primary Care Provider] -
[2016-08-26] MEDS ORDERED: Furosemide 20 MG TABLET PO SCH (09:00)
[2016-08-26] MEDS ORDERED: amLODIPine 5 MG TABLET PO SCH (09:00)
[2016-08-26] MEDS: Insulin LISPRO 300 UNITS/3 ML VIAL SQ SCH ×4 (10:28→21:07)
[2016-08-26] MEDS: diazePAM 5 MG TABLET PO PRN ×2 (10:45→22:52)
[2016-08-26] MEDS: Lisinopril 20 MG TABLET PO SCH (10:45)
[2016-08-26] MEDS: Isosorbide MONOnitrate (24 HR) 60 MG TAB.ER.24H PO SCH (10:45)
[2016-08-26] MEDS: Metoprolol XL (24 HR) Succ 50 MG TAB.ER.24H PO SCH (10:46)
[2016-08-26] MEDS: predniSONE 20 MG TABLET PO SCH (10:47)
[2016-08-26] MEDS: Insulin DETEMIR 100 UNIT/ML X5UNITS SQ SCH ×2 (10:47→21:07)
[2016-08-26] MEDS: Gabapentin 100 MG CAPSULE PO SCH ×2 (10:47→21:07)
--- NOTE | 2016-08-26 11:00 | Nuclear Medicine Stress Report ---
Regadenoson Nuclear 2 day Name: Tim Rodriguez Date of Study: 08/25/2016 Date: 1955 Ht: 67.0 in Medical Record#: [id number] Age: 61 Wt: 317.0 lb Gender: Male Order #: [id number] Location: [facility] Room: banner Supervising Provider: Emmett Daugherty CNP Reading Physician: Kita Kessler DO Ordering Physician: Caryl Gotti MD Primary Care Physician: None Stress Technologist: Lakshmi Gomez, LOCKER OPERATOR, CCT, CPFT Water Resources Program Director: Fermin Alas Indications: Shortness of breath Impression: Technically challenging 2-day study. There is a medium sized, mild to moderate intensity perfusion defect during stress involving the inferior wall which is consistent with mild-moderate reversible ischemia. Pharmacologic ECG was negative for ischemia at the level of heart rate achieved. Gated EF = 50%. The LV is mildly dilated. Visual evidence of TID. Cardiology service aware. History: Hypertension Diabetes Hypercholesteremia Prior PCI Stress Test Summary: Stress Test Type: Pharmacologic Regadenoson 0.4mg/5ml given IV Baseline Information: Initial Heart Rate: 75 Blood Pressure: 180/98 Stress Information: Stress Time: 4 min sec Test Terminated Due to (primary): As per protocol Maximum Blood Pressure: 180/94 Maximum Heart Rate: 90 Percent Maximum Heart Rate Achieved: 56 Double Product: 15198 METS Reached: 1 Symptoms: Shortness of breath Nuclear Summary: SPECT myocardial perfusion imaging using Tc99m Sestamibi given intravenously was performed at rest and following cardiac stress testing. The resting images were obtained following initial dose of 32.4 mCi. Following stress an additional dose of 35.7 mCi was given at peak exercise or 30 seconds post regadenoson infusion. Medication Given: Time Medication Dose Units Route Findings: Stress Note * Resting ECG demonstrated normal sinus rhythm, LAFB and poor R wave progression. * Pharmacologic stress ECG is negative for ischemia at level of heart rate achieved. * No arrhythmias were noted during stress. * Patient had no chest pain during stress. Hemodynamic responses * Normal hemodynamic responses to pharmacologic stress. Left Ventricle * The left ventricle is mildly dilated. TID * Visual evidence of TID. Lung Uptake * There is no evidence of increase lung uptake. Study Quality * Technically difficult/limited 2-day study. Gated EF % * Gated EF = 50%. Abnormal inferior wall motion and thickening. PERFUSION * There is a medium sized, mild-moderate intensity stress perfusion defect involving the inferior wall from base to distal inferior wall. * Other segments demonstrate normal rest and stress perfusion. Updated by Kita Kessler on 08/26/2016 10:45:15 AM electronically signed on 08/26/2016 10:56:12 AM with status of Final
--- NOTE | 2016-08-26 12:54 | ECHO - Doppler Report ---
Echo with Imaging Enhancement Agent Name: Tim Rodriguez Date of Study: 08/26/2016 Date: 1955 Ht: Medical Record#: [id number] Age: 61 Wt: 319.0 lb Gender: Male BSA: Order #: [id number] Location: [facility] Room #: [id number] Reading Physician: Kita Kessler DO Pharmacovigilance Scientist: Jen Salcido Ordering Physician: Keven Nunez CNP Primary Physician: None Indications: Dyspnea Impressions: LVEF 60-65%. Normal left ventricular size and systolic function. There is evidence of mild diastolic dysfunction of the left ventricle. RV is not well evaluated. Mild mitral regurgitation. No pulmonary hypertension. Left Ventricular Wall Motion: Rest Echo Findings All wall segments showed normal motion. Findings: Study Quality * Technically sub-optimal due to body habitus. ECG Findings * Normal sinus rhythm. Aortic Valve * No aortic regurgitation. * No aortic stenosis. * Aortic valve not well visualized. Mitral Valve * Normal mitral valve structure. * No mitral stenosis. * Mild mitral regurgitation. Tricuspid Valve * Tricuspid valve not well visualized. * No tricuspid regurgitation. * Estimated RA pressure is 3 mmHg. * No pulmonary hypertension. Pulmonic Valve * Pulmonic valve is not well visualized. * No pulmonic stenosis. * No pulmonic regurgitation. Pulmonary Artery * Pulmonary artery not well visualized. Left Ventricle * Mild left ventricular diastolic dysfunction. * LVEF 60-65%. * Definity echo contrast was used. Right Ventricle * RV is not well evaluated. Left Atrium * Normal left atrial size. Right Atrium * Normal right atrial size. IVC * The IVC is not well evaluated. * Normal IVC dimensions and inspiratory collapse. Pericardium * There is no pericardial effusion present. Aorta * Not well visualized. History Hypertension Diabetes Hypercholesteremia Years 14 Packs 2 History of CAD/PTCA Myocardial Infarction 06/09/2014 a Previous Echo was performed. Contrast: Definity 1.3 ml in 8.7 ml of saline 2 ml. Measurements: BP: 174/ 78 2D Normal Values IVSd: 1.90 cm 0.6 - 1.0 cm LVIDd: 4.00 cm 3.7 - 5.6 cm LVPWd: 1.50 cm 0.6 - 1.1 cm LVIDs: 3.10 cm 1.5 - 3.6 cm LA: 5.30 cm 2.0 - 4.0cm LA volume: 67 Mitral Valve Peak E' Lat Giorgio:5.95 cm/s Peak E' Med Giorgio:7.12 cm/s E/E' Lat Ratio:20.5 E/E' Med Ratio:17.1 Updated by Kita Kessler on 08/26/2016 12:46:16 PM electronically signed on 08/26/2016 12:48:56 PM with status of Final Wall Motion Perez: 1=Normal, 2=Hypokinesis, 3=Akinesis, 4=Dyskinesis, 5=Aneurysmal, 6=Hyperkinetic, X=Not Visualized (Blank)=Missing
--- NOTE | 2016-08-26 15:35 | Nephrology Progress Note ---
Date of Encounter: 08/26/16 Time of Encounter: 15:00 - Assessment and Plan (1) DELORIS (acute kidney injury) Status: Acute SCr slightly worse at 1.6, GFR 44. Discussed at length the risk of contrast nephropathy with exposure to iv contrast during LHC tomorrow including worsening renal fxn and possibly failure , pt expressed understanding. Will dose with mucomyst starting today 600mg bid x 2 days will hold lasix and lisinopril as well Will recommend gentle hydration a hour before and 6 hrs after LHC f possible (2) CKD (chronic kidney disease) stage 3, GFR 30-59 ml/min Status: Acute (3) Elevated troponin I level Status: Inactive Subjective Principal diagnosis: Dyspnea, COPD exacerbation Interval history: Pt seen and examined reports exertional SOB but no chest pain. Stress test abnormal with C scheduled for tomorrow per cardiology Objective - Vital Signs Vital signs: Vital Signs Temp Pulse Resp BP Pulse Ox 08/26/16 11:01 97.9 F 83 18 204/100 94 L 08/26/16 07:10 98 08/26/16 07:04 97.5 F L 88 18 174/78 96 08/26/16 03:21 18 96 08/26/16 02:48 97.9 F 76 19 186/82 95 08/25/16 22:44 98.3 F 79 19 194/93 96 08/25/16 21:06 19 94 L 08/25/16 18:44 98.2 F 76 17 162/80 98 08/25/16 15:32 97.6 F 69 16 99 Intake and Output 08/25/16 08/26/16 08/26/16 23:59 07:59 15:59 Intake Total 240 / 240 240 / 240 Output Total 200 / 200 1775 / 1775 625 / 625 Balance 40 / 40 -1775 / -1775 -385 / -385 Intake: Oral 240 / 240 240 / 240 Output: Urine 200 / 200 1775 / 1775 625 / 625 Other: Meal Lunch Lunch Percent of Meal Consumed 100% 100% Weight 144.696 kg Blood Glucose* 265 380 Patient Weight 08/26/16 23:59 Weight 144.696 kg - General Appearance General appearance: Present: chronically ill (sitting up in bed) EENT: Present: ATNC, mucous membranes moist Neck: Present: no JVD, supple Additional Comments: decreased BS bases bilat Cardiology: Present: edema, normal S1, normal S2 Gastrointestinal: Present: no tenderness, no guarding, obese Integumentary: Present: warm and dry Neurologic: Present: no focal deficit Musculoskeletal: Present: no deformities Psychiatric: Present: mood/affect appropriate - Lab 08/28/16 04:50 08/28/16 04:50 Most recent lab results Calcium 9.0 mg/dL (8.6-10.8) 08/26/16 07:16 Magnesium 1.6 mg/dL (1.6-2.6) 08/25/16 04:34 Urine Creatinine 53 mg/dL 08/25/16 14:52 Urine Sodium 98.0 mEq/L 08/25/16 14:52 Urine Total Protein 178 mg/dL (1-14) H 08/25/16 14:52 Consult Discharge Plan - Plan Referrals: NO,PCP [Primary Care Provider] -
--- NOTE | 2016-08-26 18:04 | Internal Med Progress Note ---
Date of Encounter: 08/26/16 Time of Encounter: 10:00 - Assessment and plan (1) Chest pain Current Visit: No Status: Acute Assessment and plan: Has resolved. Mild elevated troponin trended down. Cardiology consult appreciated. Patient has a positive stress test, plan for cardiac catheterization tomorrow Qualifiers: Chest pain type: other chest pain Qualified Code(s): R07.89 - Other chest pain; R07.8 - Other chest pain (2) CKD (chronic kidney disease) stage 3, GFR 30-59 ml/min Current Visit: Yes Status: Acute Assessment and plan: Most likely Caused by diabetes. Creatinine is about at his baseline. Will closely monitor renal function and careful diuretic. Nephrology consult appreciated, recommendation will be followed to prevent contrast-induced acute kidney injury. (3) Essential hypertension Current Visit: Yes Status: Acute Assessment and plan: Continue home medication. Will hold lisinopril and lasix. Add nifedipine and hydralazine causes BP is poorly controlled (4) Acute on chronic kidney failure Current Visit: No Status: Acute Assessment and plan: Patient is very sensitive to Lasix. Will give careful diuretics and follow renal function. Nephrology consult appreciated. (5) COPD exacerbation Current Visit: No Status: Acute Assessment and plan: Continue bronchodilator. Would DC steroid because patient has no wheezing now. (6) Elevated troponin I level Current Visit: No Status: Acute Assessment and plan: Trend down. Stress test positive, plan for catheterization (7) CAD (coronary artery disease) Current Visit: No Status: Chronic Assessment and plan: Plan for catheterization. Continue Plavix, beta lena, and statin. Qualifiers: Coronary Disease-Associated Artery/Lesion type: [place] artery [place] vs. transplanted heart: [place] heart Associated angina: without angina Qualified Code(s): I25.10 - Atherosclerotic heart disease of [place] coronary artery without angina pectoris (8) Diastolic heart failure Current Visit: No Status: Chronic Assessment and plan: Mild diuretic (hold now for catheterization). Supportive treatment. Qualifiers: Heart failure chronicity: chronic Qualified Code(s): I50.32 - Chronic diastolic (congestive) heart failure (9) Morbid obesity Current Visit: No Status: Chronic Assessment and plan: Need lifestyle modification. Qualifiers: Obesity type: due to excess calories Qualified Code(s): E66.01 - Morbid ( severe) obesity due to excess calories (10) DVT prophylaxis Current Visit: Yes Status: Acute Assessment and plan: Heparin SC - Time Spent With Patient 25 - 35 minutes - Subjective Interval history: Patient is a 61-year-old male admitted with shortness of breath. His past medical history is significant for CHF, COPD, CVA, diabetes, hyperlipidemia, hypertension, CAD, CKD. Patient was seen and examined, his shortness of breath has improved after treatment. Denies chest pain. No nausea no vomiting. Cardiology and nephrology consult appreciated. Patient has a positive stress test result, plan for catheterization tomorrow morning. Patient has a poor kidney function. Nephrology recommendation will followed to prevent contrast-induced acute kidney injury. Continue close monitoring. Patient has a uncontrolled hypertension, we will add hydralazine and nifedipine. Closely follow up BP change. - Constitutional Vitals: Temp Pulse Resp BP Pulse Ox 97.4 F L 83 16 196/98 96 08/26/16 15:31 08/26/16 15:31 08/26/16 15:57 08/26/16 15:31 08/26/16 15:57 General appearance: Present: A&O X 3, morbidly obese, answers questions appropriately - Head Head exam: Present: atraumatic, normocephalic - Eye Eye exam: Present: PERRL, conjuntiva pink, sclera anicteric Pupils: Present: PERRL - Neck Neck exam general surgery: Present: supple, trachea midline. Absent: lymphadenopathy - Respiratory Respiratory exam: Present: CTAB. Absent: accessory muscle use, rales, rhonchi, wheezes - Cardiovascular Cardiovascular exam: Present: RRR, +S1, +S2. Absent: diastolic murmur, gallop, rubs, systolic murmur - GI/Abdominal GI/Abdominal exam: Present: normal bowel sounds, soft, no peritoneal signs. Absent: distended, tenderness - Extremities Exam Extremities exam: Present: warm, radial pulses palpable and symetrical. Absent : calf tenderness, cyanotic, pedal edema - Neurological Exam Neurological exam: Present: CN II-XII intact, oriented X3, no focal deficits. Absent: pronater drift, facial droop, speech deficit - Skin Skin exam: Present: dry, intact Internal Medicine: Result - Labs CBC & Chem 7: 08/26/16 07:16 08/26/16 07:16 Labs: Short CBC 08/26/16 Range/Units 07:16 WBC 6.8 (4.3-11.1) K/mcL Hgb 13.7 (12.9-16.9) g/dL Hct 44.6 (37.5-50.1) % Plt Count 217 (140-400) K/mcL Neutrophils # 5.9 (1.6-8.9) K/mcL BMP 08/26/16 07:16 Sodium 137 Potassium 4.9 H Chloride 103 Carbon Dioxide 24 BUN 38 H D Creatinine 1.62 H Glucose 334 H Calcium 9.0 Consult Discharge Plan - Plan Referrals: NO,PCP [Primary Care Provider] -
[2016-08-26] MEDS: NIFEdipine XL (24 HR) 30 MG TAB.ER.24 PO SCH (18:50)
[2016-08-26] MEDS: *HR* OxyCODONE/APAP 7.5/325 TABLET PO PRN (18:52)
[2016-08-26] MEDS: hydrALAZINE 25 MG TABLET PO SCH (18:53)
[2016-08-26] MEDS: *HR* Acetylcysteine 20% 600 MG/3 ML ORAL SYRINGE PO SCH (21:12)
[2016-08-27] MEDS: Albuterol 2.5 MG/3 ML NEBULIZER IH SCH ×4 (03:24→22:37)
[2016-08-27 05:25] LABS: Basophils % 0.3 %; Eosinophils # 0.1 K/mcL (0.0-0.6); Eosinophils % 1.2 %; Hematocrit 39.9 % (37.5-50.1); Hemoglobin 12.6 g/dL (12.9-16.9); Immature Granulocytes % 0.3 % (0-4); Lymphocytes # 2.1 K/mcL (0.6-4.6); Lymphocytes % 22.7 %; Mean Corpuscular HGB Conc 31.6 g/dL (31.6-35.5); Mean Corpuscular Hemoglobin 25.6 pg (28.0-33.3); Mean Corpuscular Volume 81.1 fL (83.0-100.0); Mean Platelet Volume 12.5 fL (9.4-12.4); Monocytes # 0.6 K/mcL (0.0-1.3); Neutrophils # 6.4 K/mcL (1.6-8.9); Platelet Count 205 K/mcL (140-400); Red Blood Count 4.92 M/mcL (4.19-5.50); Red Cell Distribution Width 14.6 % (11.5-14.5); Segmented Neutrophils % 69.5 %
[2016-08-27 05:38] LABS: Calcium 8.7 mg/dL (8.6-10.8); Potassium 4.3 mEq/L (3.5-4.5)
[2016-08-27] MEDS: hydrALAZINE 25 MG TABLET PO SCH ×2 (05:56→11:11)
[2016-08-27] MEDS: *HR* Heparin 5,000 UNIT/ML VIAL SQ SCH ×2 (05:57→20:45)
[2016-08-27] MEDS ORDERED: 0.9 % Sodium Chloride 1,000 ML IVC SCH (06:00)
[2016-08-27] MEDS: NIFEdipine XL (24 HR) 30 MG TAB.ER.24 PO SCH (08:13)
[2016-08-27] MEDS: *HR* OxyCODONE/APAP 7.5/325 TABLET PO PRN ×2 (08:13→20:46)
[2016-08-27] MEDS: Insulin DETEMIR 100 UNIT/ML X5UNITS SQ SCH ×2 (08:14→20:47)
[2016-08-27] MEDS: Insulin LISPRO 300 UNITS/3 ML VIAL SQ SCH ×4 (08:14→20:46)
[2016-08-27] MEDS: Metoprolol XL (24 HR) Succ 50 MG TAB.ER.24H PO SCH (08:14)
[2016-08-27] MEDS: Gabapentin 100 MG CAPSULE PO SCH ×2 (08:14→20:46)
[2016-08-27] MEDS: *HR* Acetylcysteine 20% 600 MG/3 ML ORAL SYRINGE PO SCH ×2 (08:15→20:47)
[2016-08-27] MEDS: Isosorbide MONOnitrate (24 HR) 60 MG TAB.ER.24H PO SCH (08:15)
[2016-08-27 08:52] LABS: Prothrombin Time 11.3 Seconds (9.4-12.1)
--- NOTE | 2016-08-27 09:22 | Cardiology Progress Note ---
Date of Encounter: 08/27/16 Time of Encounter: 09:20 Assessment and Plan (1) Abnormal stress test Current Visit: Yes Status: Acute Stress test yesterday showed moderate sized, mild-moderate intensity perfusion defect during stress involving inferior wall consistent with mild-moderate ischemic, visual TID. Plan was for LHC today, but renal function has worsened--creatinine was 1.62 yesterday, 1.83 today. Pt has history of requiring temporary dialysis. Given worsened renal function, will cancel LHC and hydrate with IV fluids, nephrology is involved--mucomyst on board. Lasix and BHAVNA-i stopped already. Recheck renal function in AM and will then determine if acceptable to proceed with LHC at that time. Pt is agreeable to this plan. Echo shows preserved EF. (2) CAD (coronary artery disease) Current Visit: No Status: Chronic Hx PCI, most recent 2013. Continue ASA, Plavix, Statin, BB. Qualifiers: Coronary Disease-Associated Artery/Lesion type: [place] artery [place] vs. transplanted heart: [place] heart Associated angina: without angina Qualified Code(s): I25.10 - Atherosclerotic heart disease of [place] coronary artery without angina pectoris (3) Essential hypertension Current Visit: Yes Status: Acute Norvasc added yesterday. BP now better controlled. (4) COPD exacerbation Current Visit: No Status: Acute Defer to admitting service. (5) CKD (chronic kidney disease) stage 3, GFR 30-59 ml/min Current Visit: Yes Status: Acute Discussion w patient/family: The assessment and plan as outlined above was discussed with the patient and/or family members who expressed understanding and agreement. All questions were answered. Thank you for involving us in the care of your patient. Please call with any questions. Subjective Principal diagnosis: Dyspnea, COPD exacerbation Interval history: Initial plan for LHC today for abnormal stress test, but creatinine has worsened --1.62 yesterday, 1.83 today. Pt denies chest pain overnight, still reports significant dyspnea on exertion. Objective Vital Signs, Last 4 Hours Pulse Resp BP Pulse Ox 08/27/16 08:22 96 08/27/16 07:10 65 16 116/67 96 Vital Signs Temp Pulse Resp BP Pulse Ox 08/27/16 08:22 96 08/27/16 07:10 65 16 116/67 96 08/27/16 03:24 18 97 08/27/16 03:18 97.4 F L 68 16 131/64 97 08/26/16 22:44 97.4 F L 81 16 133/65 96 08/26/16 21:25 16 95 08/26/16 18:44 97.5 F L 79 16 195/83 95 08/26/16 15:57 16 96 08/26/16 15:31 97.4 F L 83 16 196/98 96 08/26/16 11:01 97.9 F 83 18 204/100 94 L Intake and Output 08/26/16 08/27/16 08/27/16 23:59 07:59 15:59 Intake Total 340 / 340 600 / 600 0 / 0 Output Total 1675 / 1675 300 / 300 0 / 0 Balance -1335 / -1335 300 / 300 0 / 0 Intake: Oral 340 / 340 600 / 600 0 / 0 Output: Urine 1675 / 1675 300 / 300 0 / 0 Other: Meal Dinner NPO Percent of Meal Consumed 100% 0% # Voids 1 Weight 145.2 kg Blood Glucose* 360 290 Patient Weight 08/27/16 23:59 Weight 145.2 kg General: Conversant, No Apparent Distress HEENT: Atraumatic, Normocephaly, Mucus Membranes Moist Neck: No JVD, Normal carotid pulses Cardiac: Reg Rate and Rhythm, Normal S1 and S2, No Murmur Lungs: Normal Breath Sounds, No Wheeze, Rales, Rhonchi Neuro: Alert and responsive, No focal deficits noted Abdomen: Soft, Non-Tender Skin: No rashes noted on visualized skin Musculoskeletal: No Chest Wall Tenderness Extremities: No Clubbing, No Cyanosis, No Edema, Normal Pulses Results 08/27/16 04:25 08/27/16 04:25 Lab Results 08/27/16 08/27/16 08/27/16 04:25 04:25 07:56 WBC 9.2 Hgb 12.6 L Hct 39.9 Plt Count 205 INR 1.0 Sodium 137 Potassium 4.3 Chloride 102 Carbon Dioxide 25 BUN 51 H D Creatinine 1.83 H Glucose 332 H Calcium 8.7 Short CBC 08/27/16 Range/Units 04:25 WBC 9.2 (4.3-11.1) K/mcL Hgb 12.6 L (12.9-16.9) g/dL Hct 39.9 (37.5-50.1) % Plt Count 205 (140-400) K/mcL Neutrophils # 6.4 (1.6-8.9) K/mcL BMP 08/27/16 Range/Units 04:25 Sodium 137 (136-145) mEq/L Potassium 4.3 (3.5-4.5) mEq/L Chloride 102 (98-109) mEq/L Carbon Dioxide 25 (19-29) mEq/L BUN 51 H D (8-26) mg/dL Creatinine 1.83 H (0.72-1.25) mg/dL Glucose 332 H (70-99) mg/dL Calcium 8.7 (8.6-10.8) mg/dL Active Medications Acetaminophen (Tylenol) 650 mg PO Q6HR PRN PRN Reason: Mild Pain (1-3) Stop: 02/23/17 22:45 Acetylcysteine (Acetylcysteine 20%) 600 mg PO BID [facility] Stop: 08/28/16 21:01 Last Admin: 08/27/16 08:15 Dose: 600 mg Albuterol Sulfate (Proventil Neb) 2.5 mg IH [id number] [facility] Stop: 02/24/17 04:01 Last Admin: 08/27/16 03:24 Dose: 2.5 mg Allopurinol (Zyloprim) 200 mg PO DAILY [facility] Stop: 02/24/17 09:01 Last Admin: 08/27/16 08:13 Dose: 200 mg Atorvastatin Calcium (Lipitor) 80 mg PO HS [facility] Stop: 02/23/17 23:01 Last Admin: 08/26/16 21:07 Dose: 80 mg Calcium Carbonate (Tums) 500 mg PO BID [facility] Stop: 02/24/17 09:01 Last Admin: 08/27/16 08:14 Dose: 500 mg Clopidogrel Bisulfate (Plavix) 75 mg PO DAILY [facility] Stop: 02/23/17 23:01 Last Admin: 08/27/16 08:14 Dose: 75 mg Dextrose/Water (Dextrose 50% (Syg)) 25 ml IVP AD PRN PRN Reason: Hypoglycemia Stop: 02/23/17 22:49 Diazepam (Valium) 5 mg PO DAILY PRN PRN Reason: Anxiety Stop: 02/23/17 22:50 Last Admin: 08/26/16 22:52 Dose: 5 mg Furosemide (Lasix) 20 mg PO DAILY [facility] Stop: 02/25/17 09:01 Last Admin: 08/26/16 10:46 Dose: 20 mg Gabapentin (Neurontin) 200 mg PO BID [facility] Stop: 02/24/17 09:01 Last Admin: 08/27/16 08:14 Dose: 200 mg Glucagon (Glucagen) 1 mg IM ONCE PRN PRN Reason: Hypoglycemia Stop: 02/23/17 22:49 Glucose (Gluctose) 15 gm PO ONCE PRN PRN Reason: Hypoglycemia Stop: 02/23/17 22:49 Glucose (Gluctose) 30 gm PO ONCE PRN PRN Reason: Hypoglycemia Stop: 02/23/17 22:49 Heparin Sodium (Porcine) (Heparin) 5,000 unit SQ Q12HCO [facility] Stop: 02/24/17 07:01 Last Admin: 08/27/16 05:57 Dose: Not Given Hydralazine HCl (Hydralazine) 10 mg IVP Q6HR PRN PRN Reason: Hypertension Stop: 02/25/17 11:38 Hydralazine HCl (Hydralazine) 25 mg PO Q8H [facility] Stop: 02/25/17 18:09 Last Admin: 08/27/16 05:56 Dose: Not Given Dextrose (Dextrose 5%) 1,000 mls @ 100 mls/hr IV CONT PRN PRN Reason: HYPOGLYCEMIA Stop: 02/23/17 22:49 Sodium Chloride (0.9 % Sodium Chloride) 1,000 mls @ 60 mls/hr IVC .[id number] [facility] Stop: 08/27/16 14:01 Last Admin: 08/27/16 05:52 Dose: 60 mls/hr Insulin Detemir (Levemir) 40 unit SQ BID [facility] Stop: 02/23/17 23:16 Last Admin: 08/27/16 08:14 Dose: 40 unit Insulin Human Lispro (Humalog) 0 units SQ HS [facility] PRN Reason: Protocol Stop: 02/23/17 22:57 Last Admin: 08/26/16 21:07 Dose: 8 units Insulin Human Lispro (Humalog) 0 units SQ TIDAC [facility] PRN Reason: Protocol Stop: 02/24/17 07:31 Last Admin: 08/27/16 08:14 Dose: 12 units Isosorbide Mononitrate (Imdur) 60 mg PO DAILY [facility] Stop: 02/24/17 09:01 Last Admin: 08/27/16 08:15 Dose: 60 mg Lisinopril (Zestril) 40 mg PO DAILY [facility] PRN Reason: Protocol Stop: 02/23/17 23:01 Last Admin: 08/26/16 10:45 Dose: 40 mg Metoprolol Succinate (Toprol Xl) 100 mg PO DAILY [facility] Stop: 02/23/17 23:01 Last Admin: 08/27/16 08:14 Dose: 100 mg Naloxone HCl (Narcan) 0.4 mg IVP Q2MIN PRN PRN Reason: Opioid Reversal Stop: 02/23/17 22:45 Nifedipine (Procardia Xl) 90 mg PO DAILY [facility] PRN Reason: Protocol Stop: 02/25/17 18:16 Last Admin: 08/27/16 08:13 Dose: 90 mg Ondansetron HCl (Zofran) 4 mg IVP Q8HR PRN PRN Reason: Nausea And Vomiting Stop: 02/23/17 22:45 Oxycodone/Acetaminophen (Percocet 7.5/325) 1 each PO Q4HR PRN PRN Reason: Pain Stop: 02/25/17 18:41 Last Admin: 08/27/16 08:13 Dose: 1 each - Imaging and Cardiology Stress Test: report reviewed Echo: report reviewed - EKG Interpretation EKG results cardiology: other (12 hour tele AVG HR 69, SR, no significant pauses or arrhythmias.) Consult Discharge Plan - Plan Referrals: NO,PCP [Primary Care Provider] -
--- NOTE | 2016-08-27 13:32 | Nephrology Progress Note ---
Date of Encounter: 08/27/16 Time of Encounter: 12:15 - Assessment and Plan (1) DELORIS (acute kidney injury) Status: Acute SCr worse at 1.83, GFR 38 likelt pre-renal Agree wuth aborting LHC at this time Will continue to hold lasix and lisinopril Agree with IVF for now Avoid any nephrotoxins if possible (2) CKD (chronic kidney disease) stage 3, GFR 30-59 ml/min Status: Acute vitamin D noted low, needs more of vitamin d supplements PTH slightly elevated, will monitor for now (3) Elevated troponin I level Status: Inactive Subjective Principal diagnosis: Dyspnea, COPD exacerbation Interval history: Pt seen and examined he denies any change in condition. LHC aborted for today. Pt considering transfer to [facility] instead Objective - Vital Signs Vital signs: Vital Signs Temp Pulse Resp BP Pulse Ox 08/27/16 11:01 97.9 F 59 17 101/66 96 08/27/16 10:52 18 97 08/27/16 08:22 96 08/27/16 07:10 65 16 116/67 96 08/27/16 03:24 18 97 08/27/16 03:18 97.4 F L 68 16 131/64 97 08/26/16 22:44 97.4 F L 81 16 133/65 96 08/26/16 21:25 16 95 08/26/16 18:44 97.5 F L 79 16 195/83 95 08/26/16 15:57 16 96 08/26/16 15:31 97.4 F L 83 16 196/98 96 Intake and Output 08/26/16 08/27/16 08/27/16 23:59 07:59 15:59 Intake Total 340 / 340 600 / 600 480 / 480 Output Total 1675 / 1675 300 / 300 0 / 0 Balance -1335 / -1335 300 / 300 480 / 480 Intake: Oral 340 / 340 600 / 600 480 / 480 Output: Urine 1675 / 1675 300 / 300 0 / 0 Other: Meal Dinner Lunch Percent of Meal Consumed 100% 100% # Voids 1 Weight 145.2 kg Blood Glucose* 360 290 288 Patient Weight 08/27/16 23:59 Weight 145.2 kg - General Appearance General appearance: Present: chronically ill EENT: Present: ATNC, mucous membranes moist Neck: Present: no JVD, supple Additional Comments: decreased BS bases bilat Cardiology: Present: normal S1 Integumentary: Present: warm and dry Neurologic: Present: no focal deficit Musculoskeletal: Present: no deformities Psychiatric: Present: mood/affect appropriate - Lab 08/28/16 04:50 08/28/16 04:50 Most recent lab results Calcium 8.7 mg/dL (8.6-10.8) 08/27/16 04:25 Magnesium 1.6 mg/dL (1.6-2.6) 08/25/16 04:34 Urine Creatinine 53 mg/dL 08/25/16 14:52 Urine Sodium 98.0 mEq/L 08/25/16 14:52 Urine Total Protein 178 mg/dL (1-14) H 08/25/16 14:52 Consult Discharge Plan - Plan Referrals: NO,PCP [Primary Care Provider] -
[2016-08-27] MEDS ORDERED: Magnesium Sulfate 2 GM in D5% in Water 100 ML IVPB ONE (15:48)
--- NOTE | 2016-08-27 16:16 | Internal Med Progress Note ---
Date of Encounter: 08/27/16 Time of Encounter: 09:00 - Assessment and plan (1) Chest pain Current Visit: No Status: Acute Assessment and plan: Has resolved. Mild elevated troponin trended down. Cardiology consult appreciated. Patient has a positive stress test, plan for cardiac catheterization today but postponed due to worsen renal function. Qualifiers: Chest pain type: other chest pain Qualified Code(s): R07.89 - Other chest pain; R07.8 - Other chest pain (2) CKD (chronic kidney disease) stage 3, GFR 30-59 ml/min Current Visit: Yes Status: Acute Assessment and plan: Most likely Caused by diabetes. Creatinine is slightly worsen today. Will closely monitor renal function. Nephrology consult appreciated, recommendation will be followed to prevent contrast-induced acute kidney injury. (3) Essential hypertension Current Visit: Yes Status: Acute Assessment and plan: Continue home medication. Will hold lisinopril and lasix. On nifedipine now, BP is well controlled (4) Acute on chronic kidney failure Current Visit: No Status: Acute Assessment and plan: Patient is very sensitive to Lasix. Will give careful diuretics (hold now) and follow renal function. Nephrology consult appreciated. (5) COPD exacerbation Current Visit: No Status: Acute Assessment and plan: Continue bronchodilator. Would DC steroid because patient has no wheezing now. (6) Elevated troponin I level Current Visit: No Status: Acute Assessment and plan: Trend down. Stress test positive, plan for catheterization (7) CAD (coronary artery disease) Current Visit: No Status: Chronic Assessment and plan: Plan for catheterization. Continue Plavix, beta lena, and statin. Qualifiers: Coronary Disease-Associated Artery/Lesion type: [place] artery [place] vs. transplanted heart: [place] heart Associated angina: without angina Qualified Code(s): I25.10 - Atherosclerotic heart disease of [place] coronary artery without angina pectoris (8) Diastolic heart failure Current Visit: No Status: Chronic Assessment and plan: Mild diuretic (hold now for worsen renal function). Supportive treatment. Qualifiers: Heart failure chronicity: chronic Qualified Code(s): I50.32 - Chronic diastolic (congestive) heart failure (9) Morbid obesity Current Visit: No Status: Chronic Assessment and plan: Need lifestyle modification. Qualifiers: Obesity type: due to excess calories Qualified Code(s): E66.01 - Morbid ( severe) obesity due to excess calories (10) DVT prophylaxis Current Visit: Yes Status: Acute Assessment and plan: Heparin SC - Time Spent With Patient 25 - 35 minutes - Subjective Interval history: Patient is a 61-year-old male admitted with shortness of breath. His past medical history is significant for CHF, COPD, CVA, diabetes, hyperlipidemia, hypertension, CAD, CKD. Patient was seen and examined. He has no shortness of breath, no chest pain, vital signs stable. BP is well controlled and at the lower side, hydralazine has been discontinued, decreased the nifedipine dose. His renal function is getting slightly worse, catheterization has been postponed. We will continue low rate IV fluid, hold Lasix and lisinopril, continue Mucomyst by mouth, closely follow up renal function. Nephrology consult on case and appreciated. - Constitutional Vitals: Temp Pulse Resp BP Pulse Ox 97.7 F 56 17 100/55 95 08/27/16 14:45 08/27/16 14:45 08/27/16 14:45 08/27/16 15:17 08/27/16 14:45 General appearance: Present: A&O X 3, morbidly obese, answers questions appropriately - Head Head exam: Present: atraumatic, normocephalic - Eye Eye exam: Present: PERRL, conjuntiva pink, sclera anicteric Pupils: Present: PERRL - Neck Neck exam general surgery: Present: supple, trachea midline. Absent: lymphadenopathy - Respiratory Respiratory exam: Present: CTAB. Absent: accessory muscle use, rales, rhonchi, wheezes - Cardiovascular Cardiovascular exam: Present: RRR, +S1, +S2. Absent: diastolic murmur, gallop, rubs, systolic murmur - GI/Abdominal GI/Abdominal exam: Present: normal bowel sounds, soft, no peritoneal signs. Absent: distended, tenderness - Extremities Exam Extremities exam: Present: warm, radial pulses palpable and symetrical. Absent : calf tenderness, cyanotic, pedal edema - Neurological Exam Neurological exam: Present: CN II-XII intact, oriented X3, no focal deficits. Absent: pronater drift, facial droop, speech deficit - Skin Skin exam: Present: dry, intact Internal Medicine: Result - Labs CBC & Chem 7: 08/27/16 04:25 08/27/16 04:25 Labs: Short CBC 08/27/16 Range/Units 04:25 WBC 9.2 (4.3-11.1) K/mcL Hgb 12.6 L (12.9-16.9) g/dL Hct 39.9 (37.5-50.1) % Plt Count 205 (140-400) K/mcL Neutrophils # 6.4 (1.6-8.9) K/mcL BMP 08/27/16 04:25 Sodium 137 Potassium 4.3 Chloride 102 Carbon Dioxide 25 BUN 51 H D Creatinine 1.83 H Glucose 332 H Calcium 8.7 - ABG Interpretation ABG results: PT/INR, D-dimer PT 11.3 Seconds (9.4-12.1) 08/27/16 07:56 Consult Discharge Plan - Plan Referrals: NO,PCP [Primary Care Provider] -
[2016-08-27] MEDS: diazePAM 5 MG TABLET PO PRN (20:46)
[2016-08-28] MEDS: Albuterol 2.5 MG/3 ML NEBULIZER IH SCH ×2 (03:46→11:08)
[2016-08-28 05:18] LABS: Basophils % 0.4 %; Eosinophils # 0.4 K/mcL (0.0-0.6); Eosinophils % 4.4 %; Hematocrit 41.2 % (37.5-50.1); Hemoglobin 12.4 g/dL (12.9-16.9); Immature Granulocytes % 0.2 % (0-4); Lymphocytes # 2.3 K/mcL (0.6-4.6); Mean Corpuscular HGB Conc 30.1 g/dL (31.6-35.5); Mean Corpuscular Hemoglobin 24.9 pg (28.0-33.3); Mean Corpuscular Volume 82.7 fL (83.0-100.0); Mean Platelet Volume 11.7 fL (9.4-12.4); Monocytes # 0.5 K/mcL (0.0-1.3); Monocytes % 6.1 %; Neutrophils # 5.2 K/mcL (1.6-8.9); Platelet Count 216 K/mcL (140-400); Red Blood Count 4.98 M/mcL (4.19-5.50); Red Cell Distribution Width 14.7 % (11.5-14.5); Segmented Neutrophils % 61.9 %
[2016-08-28 06:27] LABS: Calcium 8.3 mg/dL (8.6-10.8); Magnesium 2.1 mg/dL (1.6-2.6); Potassium 4.8 mEq/L (3.5-4.5)
[2016-08-28 06:50] LABS: Thyroid Stimulating Hormone 7.551 mcIU/mL (0.350-4.840)
[2016-08-28] MEDS: Insulin LISPRO 300 UNITS/3 ML VIAL SQ SCH ×2 (08:50→12:34)
[2016-08-28] MEDS: Insulin DETEMIR 100 UNIT/ML X5UNITS SQ SCH (08:50)
[2016-08-28] MEDS ORDERED: NIFEdipine XL (24 HR) 30 MG TAB.ER.24 PO SCH (09:00)
[2016-08-28] MEDS: Gabapentin 100 MG CAPSULE PO SCH (09:07)
[2016-08-28] MEDS: Isosorbide MONOnitrate (24 HR) 60 MG TAB.ER.24H PO SCH (09:08)
[2016-08-28] MEDS: Metoprolol XL (24 HR) Succ 50 MG TAB.ER.24H PO SCH (09:08)
[2016-08-28] MEDS: *HR* Heparin 5,000 UNIT/ML VIAL SQ SCH (09:09)
[2016-08-28] MEDS: *HR* OxyCODONE/APAP 7.5/325 TABLET PO PRN (09:13)
--- NOTE | 2016-08-28 10:58 | Cardiology Progress Note ---
Date of Encounter: 08/28/16 Time of Encounter: 10:56 Assessment and Plan (1) Abnormal stress test Current Visit: Yes Status: Acute Stress test showed moderate sized, mild-moderate intensity perfusion defect during stress involving inferior wall consistent with mild-moderate ischemic, visual TID. Plan was for LHC, but renal function has continued to worsen--creatinine was 2.19 today. Pt has history of requiring temporary dialysis. Given worsened renal function, will not proceed with LHC. Avoid nephrotoxic drugs. Continue ASA, Plavix, Statin , BB. Echo shows preserved EF. Pt requesting transfer to [facility]. Will sign off. Reconsult PRN. (2) CAD (coronary artery disease) Current Visit: No Status: Chronic Hx PCI, most recent 2013. Continue ASA, Plavix, Statin, BB. Qualifiers: Coronary Disease-Associated Artery/Lesion type: [place] artery [place] vs. transplanted heart: [place] heart Associated angina: without angina Qualified Code(s): I25.10 - Atherosclerotic heart disease of [place] coronary artery without angina pectoris (3) Essential hypertension Current Visit: Yes Status: Acute Currently controlled. (4) COPD exacerbation Current Visit: No Status: Acute Defer to admitting service. (5) NSVT (nonsustained ventricular tachycardia) Current Visit: Yes Status: Acute Possible 15 beat run on tele yesterday--unclear if artifact or true NSVT. Pt was asymptomatic. Mag 1.6 on admission, was replaced yesterday. No recurrence since. Continue BB. (6) DELORIS (acute kidney injury) Current Visit: Yes Status: Acute Nephrology following. Renal function continues to worsen. Creatinine 2.19 today. No LHC due to risk of contrast induced nephrology. Avoid nephrotoxins. Discussion w patient/family: The assessment and plan as outlined above was discussed with the patient and/or family members who expressed understanding and agreement. All questions were answered. Thank you for involving us in the care of your patient. Please call with any questions. I will discuss all the above with Dr. Kessler and make changes as necessary. Subjective Principal diagnosis: Dyspnea, COPD exacerbation Interval history: Renal function has worsened today--creatinine 2.19. Reports episode of right sided chest pain overnight at rest, currently chest pain free. Wants to be transferred to [facility]. Objective Vital Signs, Last 4 Hours Temp Pulse Resp BP Pulse Ox 08/28/16 09:01 95 08/28/16 07:25 97.3 F L 71 17 143/76 95 Vital Signs Temp Pulse Resp BP Pulse Ox 08/28/16 09:01 95 08/28/16 07:25 97.3 F L 71 17 143/76 95 08/28/16 03:46 19 94 L 08/28/16 03:34 97.4 F L 69 16 119/73 95 08/27/16 23:17 94.0 F L 65 18 115/77 94 L 08/27/16 22:37 18 95 08/27/16 20:00 94.8 F L 08/27/16 19:41 94.0 F L 08/27/16 18:40 94.4 F L 60 18 101/62 96 08/27/16 16:40 16 95 08/27/16 16:16 92/57 08/27/16 15:17 100/55 08/27/16 15:09 82/51 08/27/16 14:45 97.7 F 56 17 95 08/27/16 11:01 97.9 F 59 17 101/66 96 Intake and Output 08/27/16 08/28/16 08/28/16 23:59 07:59 15:59 Intake Total 240 / 240 Output Total 650 / 650 300 / 300 Balance -410 / -410 -300 / -300 Intake: Oral 240 / 240 Output: Urine 650 / 650 300 / 300 Other: Meal Dinner Percent of Meal Consumed 90% Weight 143.789 kg Blood Glucose* 302 272 Patient Weight 08/28/16 23:59 Weight 143.789 kg General: Conversant, No Apparent Distress HEENT: Atraumatic, Normocephaly, Mucus Membranes Moist Neck: No JVD, Normal carotid pulses Cardiac: Reg Rate and Rhythm, Normal S1 and S2, No Murmur Lungs: Other (diminished) Neuro: Alert and responsive, No focal deficits noted Abdomen: Soft, Non-Tender Skin: No rashes noted on visualized skin Musculoskeletal: No Chest Wall Tenderness Extremities: No Clubbing, No Cyanosis, No Edema, Normal Pulses Results 08/28/16 04:50 08/28/16 04:50 Lab Results 08/28/16 08/28/16 04:50 04:50 WBC 8.4 Hgb 12.4 L Hct 41.2 Plt Count 216 Sodium 135 L Potassium 4.8 H Chloride 102 Carbon Dioxide 24 BUN 67 H D Creatinine 2.19 H Glucose 320 H Calcium 8.3 L Magnesium 2.1 TSH 7.551 H Short CBC 08/28/16 Range/Units 04:50 WBC 8.4 (4.3-11.1) K/mcL Hgb 12.4 L (12.9-16.9) g/dL Hct 41.2 (37.5-50.1) % Plt Count 216 (140-400) K/mcL Neutrophils # 5.2 (1.6-8.9) K/mcL BMP 08/28/16 Range/Units 04:50 Sodium 135 L (136-145) mEq/L Potassium 4.8 H (3.5-4.5) mEq/L Chloride 102 (98-109) mEq/L Carbon Dioxide 24 (19-29) mEq/L BUN 67 H D (8-26) mg/dL Creatinine 2.19 H (0.72-1.25) mg/dL Glucose 320 H (70-99) mg/dL Calcium 8.3 L (8.6-10.8) mg/dL Active Medications Acetaminophen (Tylenol) 650 mg PO Q6HR PRN PRN Reason: Mild Pain (1-3) Stop: 02/23/17 22:45 Acetylcysteine (Acetylcysteine 20%) 600 mg PO BID [facility] Stop: 08/28/16 21:01 Last Admin: 08/27/16 20:47 Dose: Not Given Albuterol Sulfate (Proventil Neb) 2.5 mg IH [id number] [facility] Stop: 02/24/17 04:01 Last Admin: 08/28/16 03:46 Dose: 2.5 mg Allopurinol (Zyloprim) 200 mg PO DAILY [facility] Stop: 02/24/17 09:01 Last Admin: 08/28/16 09:07 Dose: 200 mg Atorvastatin Calcium (Lipitor) 80 mg PO HS [facility] Stop: 02/23/17 23:01 Last Admin: 08/27/16 20:45 Dose: 80 mg Calcium Carbonate (Tums) 500 mg PO BID [facility] Stop: 02/24/17 09:01 Last Admin: 08/28/16 09:06 Dose: 500 mg Clopidogrel Bisulfate (Plavix) 75 mg PO DAILY [facility] Stop: 02/23/17 23:01 Last Admin: 08/28/16 09:07 Dose: 75 mg Dextrose/Water (Dextrose 50% (Syg)) 25 ml IVP AD PRN PRN Reason: Hypoglycemia Stop: 02/23/17 22:49 Diazepam (Valium) 5 mg PO DAILY PRN PRN Reason: Anxiety Stop: 02/23/17 22:50 Last Admin: 08/27/16 20:46 Dose: 5 mg Docusate Sodium (Colace) 100 mg PO BID [facility] PRN Reason: Protocol Stop: 02/26/17 21:01 Last Admin: 08/28/16 09:07 Dose: 100 mg Furosemide (Lasix) 20 mg PO DAILY [facility] Stop: 02/25/17 09:01 Last Admin: 08/26/16 10:46 Dose: 20 mg Gabapentin (Neurontin) 200 mg PO BID [facility] Stop: 02/24/17 09:01 Last Admin: 08/28/16 09:07 Dose: 200 mg Glucagon (Glucagen) 1 mg IM ONCE PRN PRN Reason: Hypoglycemia Stop: 02/23/17 22:49 Glucose (Gluctose) 15 gm PO ONCE PRN PRN Reason: Hypoglycemia Stop: 02/23/17 22:49 Glucose (Gluctose) 30 gm PO ONCE PRN PRN Reason: Hypoglycemia Stop: 02/23/17 22:49 Heparin Sodium (Porcine) (Heparin) 5,000 unit SQ Q12HCO [facility] Stop: 02/24/17 07:01 Last Admin: 08/28/16 09:09 Dose: Not Given Hydralazine HCl (Hydralazine) 10 mg IVP Q6HR PRN PRN Reason: Hypertension Stop: 02/25/17 11:38 Dextrose (Dextrose 5%) 1,000 mls @ 100 mls/hr IV CONT PRN PRN Reason: HYPOGLYCEMIA Stop: 02/23/17 22:49 Insulin Detemir (Levemir) 50 unit SQ BID [facility] Stop: 02/23/17 23:16 Last Admin: 08/28/16 08:50 Dose: 50 unit Insulin Human Lispro (Humalog) 0 units SQ HS [facility] PRN Reason: Protocol Stop: 02/23/17 22:57 Last Admin: 08/27/16 20:46 Dose: 7 units Insulin Human Lispro (Humalog) 0 units SQ TIDAC [facility] PRN Reason: Protocol Stop: 02/24/17 07:31 Last Admin: 08/28/16 08:50 Dose: 12 units Isosorbide Mononitrate (Imdur) 60 mg PO DAILY [facility] Stop: 02/24/17 09:01 Last Admin: 08/28/16 09:08 Dose: 60 mg Metoprolol Succinate (Toprol Xl) 100 mg PO DAILY [facility] Stop: 02/23/17 23:01 Last Admin: 08/28/16 09:08 Dose: 100 mg Naloxone HCl (Narcan) 0.4 mg IVP Q2MIN PRN PRN Reason: Opioid Reversal Stop: 02/23/17 22:45 Nifedipine (Procardia Xl) 60 mg PO DAILY [facility] PRN Reason: Protocol Stop: 02/27/17 09:01 Last Admin: 08/28/16 09:07 Dose: 60 mg Ondansetron HCl (Zofran) 4 mg IVP Q8HR PRN PRN Reason: Nausea And Vomiting Stop: 02/23/17 22:45 Oxycodone/Acetaminophen (Percocet 7.5/325) 1 each PO Q4HR PRN PRN Reason: Pain Stop: 02/25/17 18:41 Last Admin: 08/28/16 09:13 Dose: 1 each - EKG Interpretation EKG results cardiology: other (24 hour tele AVG HR 62, SR, no significant pauses. Yesterday mid-day possible 15 beat run of VT--difficult to tell if real or artifact.) Consult Discharge Plan - Plan Referrals: NO,PCP [Primary Care Provider] -
[2016-08-28] MEDS ORDERED: Aspirin 81 MG TAB.CHEW PO SCH (11:15)
[2016-08-28] MEDS: *HR* Acetylcysteine 20% 600 MG/3 ML ORAL SYRINGE PO SCH (11:39)
--- NOTE | 2016-08-28 13:57 | Discharge Summary ---
Date of Encounter: 08/28/16 Time of Encounter: 13:00 - Discharge Diagnosis (1) Chest pain Priority: Primary Status: Acute Qualifiers: Chest pain type: other chest pain Qualified Code(s): R07.89 - Other chest pain; R07.8 - Other chest pain (2) CKD (chronic kidney disease) stage 3, GFR 30-59 ml/min Priority: Primary Status: Acute (3) Essential hypertension Priority: Secondary Status: Acute (4) Acute on chronic kidney failure Priority: Primary Status: Acute (5) COPD exacerbation Priority: Primary Status: Acute (6) Elevated troponin I level Priority: Primary Status: Acute (7) CAD (coronary artery disease) Priority: Primary Status: Chronic Qualifiers: Coronary Disease-Associated Artery/Lesion type: [place] artery [place] vs. transplanted heart: [place]chan heart Associated angina: without angina Qualified Code(s): I25.10 - Atherosclerotic heart disease of [place] coronary artery without angina pectoris (8) Diastolic heart failure Priority: Secondary Status: Chronic Qualifiers: Heart failure chronicity: chronic Qualified Code(s): I50.32 - Chronic diastolic (congestive) heart failure (9) Morbid obesity Priority: Secondary Status: Chronic Qualifiers: Obesity type: due to excess calories Qualified Code(s): E66.01 - Morbid ( severe) obesity due to excess calories (10) DVT prophylaxis Priority: Secondary Status: Acute - Discharge Medications Home Medications: Clopidogrel [Plavix] 75 mg PO DAILY 02/23/15 [History] Diazepam [Valium] 5 mg PO DAILY PRN 05/31/15 [History] Gabapentin [Neurontin] 200 mg PO BID 06/17/15 [History] Lisinopril [Zestril] 40 mg PO DAILY #30 tablet 06/20/15 [Rx] Isosorbide MONOnitrate (24 HR) [Imdur] 60 mg PO DAILY #30 tab.er.24h 12/13/15 [ Rx] Metoprolol XL (24 HR) Succ [Toprol Xl] 100 mg PO DAILY #30 tab.er.24h 12/13/15 [ Rx] Atorvastatin Calcium [Lipitor] 80 mg PO HS 12/25/15 [History] Insulin Glargine [Lantus] 40 unit SQ BID 04/24/16 [History] Albuterol Sulfate [Albuterol Inhaler] 1 - 2 puff IH Q4-6H PRN 08/24/16 [History] Allopurinol [Zyloprim 100 MG] 200 mg PO DAILY 08/24/16 [History] Calcium Carbonate [Calcium] 500 mg PO BID 08/24/16 [History] Insulin ASPART [Novolog Flexpen] 15 unit SQ TIDWM 08/24/16 [History] Tramadol HCl [Ultram] 50 mg PO QID PRN 08/24/16 [History] Docusate [Colace] 100 mg PO BID capsule 08/28/16 [Rx] NIFEdipine XL (24 HR) [Procardia XL] 60 mg PO DAILY tab.er.24 08/28/16 [Rx] Allergies/Adverse Reactions: Allergies No Known Allergies Allergy (Verified 12/11/15 12:35) Procedures/tests Complete & Pending: Procedures Performed prior 72 hours Category Date Time Status CL Cardiac Catheterization [CL] Routine Lead Project Engineer 08/27/16 00:01 Stop Req NM darren perf SPECT multi [NM] Routine Exams 08/26/16 08:00 Taken EV echocardiogram w enhance Routine Y 08/26/16 12:31 Completed SP pharm nuclear stress Routine Y 08/26/16 08:00 Completed - Notes to Outpatient Provider Patient's home medications Lasix and lisinopril is on hold because of worsening renal function. He is placed on Nifedipine XL 60 mg by mouth daily instead to control blood pressure. Date of admission: 08/24/16 18:59 Primary care physician: PCP NO Consults: 08/24/16 22:57 Consult to Cardiology [CONS] Routine Comment: Consulting Provider: Cardiology Jaimie Reason for Consult: elevated troponin Time Notified: 22:58 Call Completed: No 08/24/16 23:39 Consult to Composition Weatherboard Installer [CONS] Routine Reason for SW Consult: Patient does not have any electricity in his trailer. At times sleeping in his car. Requiring CPAP at night however cannot use it. 08/25/16 00:01 Consult to Nephrology [CONS] Routine Consulting Provider: Kidney Jaimie/DEEPIKA/ZONIA/SAVANNAH Reason for Consult: CKD- increasing edema - weight gain of 50 lbs over 3 mos Time Notified: 00:02 Call Completed: No 08/25/16 15:53 Consult to Senior Lead Developer [CONS] Routine Comment: Discharging clinician: Caryl Gotti Anticipated date of discharge: 08/28/16 - Patient Status Disposition: Transfer Critical Access Hosp Condition: Fair Functional capacity at discharge: uses cane/walker Overall status at discharge: patient is not back to baseline - Discharge Instructions Follow Up With: NO,PCP [Primary Care Provider] - - Diet and Activity Diet: diabetic diet, low fat, low cholesterol, low salt diet Interval History: Mr. Rodriguez is a 61 year old male with past medical history of CHF COPD CVA diabetes hyperlipidemia hypertension. According to patient's he has been expressing increasing shortness of breath particularly on exertion for the past 2-3 days. He has a history of COPD and emphysema he is not on any oxygen at home . He has increased wheezing and tightness which are not relieved with his handheld inhalers He denies any cough or sputum production fevers or chills. He does complain of a pain in his right posterior chest that radiates to subscapular region. He describes it as an ache that comes and goes and exacerbated with movement of his right arm. He has chronic swelling to his lower extremities however he has noticed increased body swelling particularly his abdomen and weight gain of approximately 50 pails over the past 2-3 months. He has history of AK in the past with stent placement last stent was placed in May. He also has a history of renal failure and was on dialysis for 4- 5 months. He has not followed up with nephrology. He was recently prescribed CPAP at night however is unable to use it due to he does not have electricity in his trailer. He denies any nausea vomiting diarrhea sick exposures. He presented to the [facility] emergency department for complaints of shortness of breath. According to ER records the patient's chest x-ray was without any acute process. EKG with normal sinus rhythm and no ST-T wave abnormalities He had no leukocytosis Chem-7 was unremarkable except for an elevated blood sugar. His troponin was 0.011 BNP 422. He was transferred to [facility] for further workup and evaluation. At present time the patient is sitting up on side of bed joking with the nursing staff and eating a sandwich. He denies any chest pain or shortness of breath this time. His blood pressure is elevated however he states he has not taken any of his medication today. Hospital course: Mr. Rodriguez is a 61 year old male admitted for shortness of breath and the chest pain. He has elevated troponin, cardiology consult was called and stress test placed. Patient has a positive stress test (Stress test showed moderate sized, mild-moderate intensity perfusion defect during stress involving inferior wall consistent with mild-moderate reversible ischemia). Cardio Catheterization was planned but postponed because of worsening renal function. Patient was treated with bronchodilators and his shortness or breath has improved. He is also on aspirin, Plavix, beta lena and atorvastatin. He has no further chest pain. His home medication Lasix and lisinopril has been hold because of worsening kidney function. He was placed on Nifedipine XL 60mg qd to control blood pressure. His kidney function is getting continuously slightly worse, with today's creatinine level 2.19. Patient said he was treated with renal dysfunction in [facility] previously and now would like to be transferred to [facility] for continuous treatment. Considering patient's complex medical condition, we think he will be benefit from being transferred to high level care facility. [facility] transfer center was called, patient was accepted and will transfer to [facility]. I saw and examined the patient today. He is awake, alert, oriented 3. No chest pain, no shortness of breath. Vitals are stable. Oxygen saturation 95% on 2 L, BP 113/67, heart rate is 66. Patient is stable to transfer to [facility] for further management. - Time Spent with Patient Total time spent providing and/or coordinating discharge services: 40 minutes Greater than 30 minutes - Constitutional Vitals: Temp Pulse Resp BP Pulse Ox 97.3 F L 66 16 113/67 93 L 08/28/16 11:22 08/28/16 11:22 08/28/16 11:22 08/28/16 11:22 08/28/16 11:22 General appearance: Present: A&O X 3, morbidly obese, answers questions appropriately - Head Head exam: Present: atraumatic, normocephalic - Eye Eye exam: Present: PERRL, conjuntiva pink, sclera anicteric Pupils: Present: PERRL - Neck Neck exam general surgery: Present: supple, trachea midline. Absent: lymphadenopathy - Respiratory Respiratory exam: Present: CTAB. Absent: accessory muscle use, rales, rhonchi, wheezes - Cardiovascular Cardiovascular exam: Present: RRR, +S1, +S2. Absent: diastolic murmur, gallop, rubs, systolic murmur - GI/Abdominal GI/Abdominal exam: Present: normal bowel sounds, soft, no peritoneal signs. Absent: distended, tenderness - Extremities Exam Extremities exam: Present: warm, radial pulses palpable and symetrical. Absent : calf tenderness, cyanotic, pedal edema - Neurological Exam Neurological exam: Present: CN II-XII intact, oriented X3, no focal deficits. Absent: pronater drift, facial droop, speech deficit - Skin Skin exam: Present: dry, intact
--- NOTE | 2016-08-28 14:19 | Physician Discharge Referral ---
ExtendedCare Referral Info Transfer To: [facility] Provider in Charge after Transfer: Other - Diagnosis (1) Chest pain Status: Acute (2) CKD (chronic kidney disease) stage 3, GFR 30-59 ml/min Status: Acute (3) Essential hypertension Status: Acute (4) Acute on chronic kidney failure Status: Acute (5) COPD exacerbation Status: Acute (6) Elevated troponin I level Status: Acute (7) CAD (coronary artery disease) Status: Chronic (8) Diastolic heart failure Status: Chronic (9) Morbid obesity Status: Chronic (10) DVT prophylaxis Status: Acute - Transfer Medications Home Medications: Clopidogrel [Plavix] 75 mg PO DAILY 02/23/15 [History] Diazepam [Valium] 5 mg PO DAILY PRN 05/31/15 [History] Gabapentin [Neurontin] 200 mg PO BID 06/17/15 [History] Isosorbide MONOnitrate (24 HR) [Imdur] 60 mg PO DAILY #30 tab.er.24h 12/13/15 [ Rx] Metoprolol XL (24 HR) Succ [Toprol Xl] 100 mg PO DAILY #30 tab.er.24h 12/13/15 [ Rx] Atorvastatin Calcium [Lipitor] 80 mg PO HS 12/25/15 [History] Insulin Glargine [Lantus] 40 unit SQ BID 04/24/16 [History] Albuterol Sulfate [Albuterol Inhaler] 1 - 2 puff IH Q4-6H PRN 08/24/16 [History] Allopurinol [Zyloprim 100 MG] 200 mg PO DAILY 08/24/16 [History] Calcium Carbonate [Calcium] 500 mg PO BID 08/24/16 [History] Insulin ASPART [Novolog Flexpen] 15 unit SQ TIDWM 08/24/16 [History] Tramadol HCl [Ultram] 50 mg PO QID PRN 08/24/16 [History] Aspirin 81 mg PO DAILY tab.chew 08/28/16 [Rx] Docusate [Colace] 100 mg PO BID capsule 08/28/16 [Rx] NIFEdipine XL (24 HR) [Procardia XL] 60 mg PO DAILY tab.er.24 08/28/16 [Rx] Allergies/Adverse Reactions: Allergies No Known Allergies Allergy (Verified 12/11/15 12:35) - Respiratory Orders Oxygen / L per min (2) Smoking Cessation: Smoking cessation has been advised. For more information, call the [place] Tobacco Quit Line at 6-096-FKJJ-NOW. - Advance Directives Code Status: Full Code CERTIFICATION: I certify that the transfer of the above named patient to an Extended Care Facility is necessary for the continuing treatment of the diagnosis listed. The above information is true and accurate reflection of patient's current condition. Confidential - Redisclosure prohibited without a patient's written consent.
[2016-08-28 15:34] VITALS: BP 107/64
== END 2016-08-28 16:22 | disposition short-term general hospital (02) | DRG 140 ==
LOC: 3BNU → SUATTDRO 18:59
PROVIDERS: ADMIT Family Medicine; ATTEND Internal Medicine

== ENCOUNTER 2019-11-06 03:51 | Observation (INO) ==
[2019-11-06] MEDS ORDERED: Naloxone 0.4 MG/ML INJ IVP PRN (06:19)
[2019-11-06] MEDS ORDERED: Acetaminophen 325 MG TABLET PO PRN (06:19)
[2019-11-06] MEDS ORDERED: *HR* Promethazine 25 MG/ML VIAL IVP PRN (06:19)
[2019-11-06] MEDS ORDERED: Ipratropium/Albuterol Neb 3 ML IH PRN (06:24)
[2019-11-06] MEDS ORDERED: Bumetanide 1 MG/4 ML VIAL IVP ONE (06:28)
[2019-11-06] MEDS: *HR* Heparin 5,000 UNIT/ML VIAL SQ SCH ×3 (07:42→09:34)
[2019-11-06] MEDS: Insulin LISPRO 300 UNITS/3 ML VIAL SQ SCH ×3 (07:44→17:12)
[2019-11-06] MEDS: Insulin DETEMIR 100 UNIT/ML X5UNITS SQ SCH ×2 (07:44→21:59)
[2019-11-06] MEDS: Aspirin 81 MG TAB.CHEW PO SCH (07:45)
[2019-11-06] MEDS ORDERED: Isosorbide MONOnitrate (24 HR) 60 MG TAB.ER.24H PO SCH (09:00)
[2019-11-06] MEDS ORDERED: diazePAM 10 MG TABLET PO PRN (12:29)
[2019-11-06] MEDS ORDERED: Topiramate 25 MG TABLET PO SCH (12:45)
[2019-11-06] MEDS: Bumetanide 1 MG/4 ML VIAL IVP SCH ×2 (12:49→20:12)
[2019-11-06] MEDS: Metoprolol XL (24 HR) Succ 50 MG TAB.ER.24H PO SCH (14:09)
[2019-11-06] MEDS: amLODIPine 5 MG TABLET PO SCH (14:09)
[2019-11-06] MEDS ORDERED: hydrALAZINE 25 MG TABLET PO SCH (15:00)
[2019-11-06 18:19] LABS: Adenovirus Not Detected (Not Detect); Bordetella Pertussis Not Detected (Not Detect); Chlamydophila pneumoniae Not Detected (Not Detect); Coronavirus 229E Not Detected (Not Detect); Coronavirus HKU1 Not Detected (Not Detect); Coronavirus NL63 Not Detected (Not Detect); Coronavirus OC43 Not Detected (Not Detect); Human Metapneumovirus Not Detected (Not Detect); Human Rhinovirus/Enterovirus Not Detected (Not Detect); Influenza A Subtype 2009 H1 Not Detected (Not Detect); Influenza B Not Detected (Not Detect); Mycoplasma pneumoniae Not Detected (Not Detect); Parainfluenza Virus 1 Not Detected (Not Detect); Parainfluenza Virus 2 Not Detected (Not Detect); Parainfluenza Virus 3 Not Detected (Not Detect); Parainfluenza Virus 4 Not Detected (Not Detect); Respiratory Syncytial Virus Not Detected (Not Detect)
[2019-11-06] MEDS: Gabapentin 100 MG CAPSULE PO SCH (20:11)
[2019-11-07] MEDS: Levalbuterol Neb 1.25 MG/3 ML IH SCH ×6 (00:50→19:37)
[2019-11-07 01:59] LABS: Basophils % 0.3 %; Eosinophils # 0.1 K/mcL (0.0-0.6); Eosinophils % 1.2 %; Hematocrit 39.2 % (37.5-50.1); Hemoglobin 11.5 g/dL (12.9-16.9); Immature Granulocytes % 0.4 % (0-4); Lymphocytes # 1.2 K/mcL (0.6-4.6); Lymphocytes % 10.4 %; Mean Corpuscular HGB Conc 29.3 g/dL (31.6-35.5); Mean Corpuscular Volume 81.7 fL (83.0-100.0); Mean Platelet Volume 11.8 fL (9.4-12.4); Monocytes # 0.8 K/mcL (0.0-1.3); Monocytes % 7.4 %; Platelet Count 230 K/mcL (140-400); Red Cell Distribution Width 16.5 % (11.5-14.5); Segmented Neutrophils % 80.3 %; White Blood Count 11.3 K/mcL (4.3-11.1)
[2019-11-07 02:19] LABS: Calcium 8.4 mg/dL (8.6-10.3); Potassium 4.3 mEq/L (3.5-5.1)
[2019-11-07] MEDS: Bumetanide 1 MG/4 ML VIAL IVP SCH ×2 (08:46→17:15)
[2019-11-07] MEDS: Metoprolol XL (24 HR) Succ 50 MG TAB.ER.24H PO SCH (08:48)
[2019-11-07] MEDS: Aspirin 81 MG TAB.CHEW PO SCH (08:49)
[2019-11-07] MEDS: FLUoxetine 20 MG CAPSULE PO SCH (08:49)
[2019-11-07] MEDS: amLODIPine 5 MG TABLET PO SCH (08:49)
[2019-11-07] MEDS: Gabapentin 100 MG CAPSULE PO SCH ×2 (08:49→20:33)
[2019-11-07] MEDS: Insulin LISPRO 300 UNITS/3 ML VIAL SQ SCH ×3 (08:55→17:12)
[2019-11-07] MEDS: Insulin DETEMIR 100 UNIT/ML X5UNITS SQ SCH ×2 (08:57→20:33)
[2019-11-07] MEDS ORDERED: Azithromycin 500 MG in 0.9 % Sodium Chloride 250 ML IVPB SCH (09:00)
[2019-11-07] MEDS ORDERED: Isosorbide MONOnitrate (24 HR) 60 MG TAB.ER.24H PO SCH (09:00)
[2019-11-07] MEDS ORDERED: cefTRIAXone 1,000 MG in Water for inj. (sterile) 10 ML IVPB SCH (09:00)
[2019-11-07] MEDS: Lactobacillus 1 EACH CAP.SPRINK PO SCH (12:12)
[2019-11-08] MEDS: Levalbuterol Neb 1.25 MG/3 ML IH SCH ×3 (00:32→07:25)
[2019-11-08 01:21] LABS: Calcium 7.9 mg/dL (8.6-10.3); Potassium 4.1 mEq/L (3.5-5.1)
[2019-11-08 07:24] VITALS: BP 164/80
[2019-11-08] MEDS ORDERED: Doxycycline 100 MG CAPSULE PO SCH (09:00)
[2019-11-08] MEDS: FLUoxetine 20 MG CAPSULE PO SCH (09:03)
[2019-11-08] MEDS: Aspirin 81 MG TAB.CHEW PO SCH (09:04)
[2019-11-08] MEDS: Lactobacillus 1 EACH CAP.SPRINK PO SCH (09:04)
[2019-11-08] MEDS: Insulin LISPRO 300 UNITS/3 ML VIAL SQ SCH (09:04)
[2019-11-08] MEDS: Metoprolol XL (24 HR) Succ 50 MG TAB.ER.24H PO SCH (09:04)
[2019-11-08] MEDS: Bumetanide 1 MG/4 ML VIAL IVP SCH (09:04)
[2019-11-08] MEDS: amLODIPine 5 MG TABLET PO SCH (09:04)
[2019-11-08] MEDS: Gabapentin 100 MG CAPSULE PO SCH (09:04)
[2019-11-08] MEDS: Insulin DETEMIR 100 UNIT/ML X5UNITS SQ SCH (09:05)
== END 2019-11-08 11:37 | disposition home or self-care (01) ==
LOC: 2NENU → SUATTDRO 05:43 → 2ANU 18:27
PROVIDERS: ADMIT Internal Medicine; ATTEND Student in an Organized Health Care Education/Training Program

== ENCOUNTER 2020-04-13 14:39 | Inpatient (IN) ==
[2020-04-13] MEDS ORDERED: Ipratropium/Albuterol Neb 3 ML IH ONE (15:00)
[2020-04-13 15:12] LABS: Hemoglobin 11.6 g/dL (12.9-16.9); Red Cell Distribution Width 17.2 % (11.5-14.5)
[2020-04-13 15:14] LABS: Basophils % 0.5 %; Eosinophils # 0.9 K/mcL (0.0-0.6); Eosinophils % 10.6 %; Immature Granulocytes % 0.2 % (0-4); Lymphocytes # 1.2 K/mcL (0.6-4.6); Lymphocytes % 13.7 %; Mean Corpuscular Volume 86.2 fL (83.0-100.0); Mean Platelet Volume 10.5 fL (9.4-12.4); Monocytes # 0.6 K/mcL (0.0-1.3); Monocytes % 6.7 %; Neutrophils # 5.8 K/mcL (1.6-8.9); Platelet Count 201 K/mcL (140-400); Red Blood Count 4.64 M/mcL (4.19-5.50); Segmented Neutrophils % 68.3 %; White Blood Count 8.5 K/mcL (4.3-11.1)
[2020-04-13 15:32] LABS: BUN/Creatinine Ratio 26 (6-26); Blood Urea Nitrogen 70 mg/dL (8-23); Calcium 9.1 mg/dL (8.6-10.3); Carbon Dioxide 31 mEq/L (23-29); Chloride 104 mEq/L (98-107); Glucose 134 mg/dL (70-105); Osmolality,Calculated 318 (280-300); Potassium 4.8 mEq/L (3.5-5.1); Sodium 143 mEq/L (136-145); eGFR For African Americans 29 (> 60); eGFR For Non-African Americans 24 (> 60)
[2020-04-13] MEDS ORDERED: Bumetanide 1 MG/4 ML VIAL IVP STA (16:10)
[2020-04-13] MEDS ORDERED: Naloxone 0.4 MG/ML INJ IVP PRN (16:45)
[2020-04-13] MEDS ORDERED: Ondansetron 4 MG/2 ML VIAL IVP PRN (16:45)
[2020-04-13] MEDS ORDERED: Perflutren Lipid Microsphere 1.3 ML in 0.9 % Sodium Chloride 8.7 ML IVP PRN (16:50)
[2020-04-13] MEDS ORDERED: *HR* Dextrose 50 % in Water (Vial) 50 ML VIAL IVP PRN (16:51)
[2020-04-13] MEDS ORDERED: D5% in Water 1,000 ML IVC PRN (16:51)
[2020-04-13] MEDS ORDERED: Dextrose Gel 15 GM/37.5 ML TUBE PO PRN ×2 (16:51)
[2020-04-13 17:10] LABS: Prothrombin Time 11.7 Seconds (9.4-12.1)
[2020-04-13] MEDS ORDERED: Ipratropium/Albuterol Neb 3 ML IH PRN (17:12)
[2020-04-13 17:13] LABS: Activated Partial Thrombo Time 39.2 Seconds (26.0-36.0)
[2020-04-13 17:17] LABS: Troponin I < 0.03 ng/mL (< 0.04)
[2020-04-13] MEDS ORDERED: SUMAtriptan succinate 50 MG TABLET PO PRN (17:41)
[2020-04-13] MEDS ORDERED: diazePAM 10 MG TABLET PO PRN (17:41)
[2020-04-13] MEDS: Bumetanide 1 MG/4 ML VIAL IVP SCH (20:47)
[2020-04-13] MEDS: Azithromycin 500 MG in 0.9 % Sodium Chloride 250 ML IVPB SCH (20:47)
[2020-04-13] MEDS: MethylPREDNISolone 40 MG/ML VIAL IVP SCH (20:48)
[2020-04-13 21:17] LABS: Adenovirus Not Detected (Not Detect); Bordetella Pertussis Not Detected (Not Detect); Chlamydophila pneumoniae Not Detected (Not Detect); Coronavirus 229E Not Detected (Not Detect); Coronavirus HKU1 Not Detected (Not Detect); Coronavirus NL63 Not Detected (Not Detect); Coronavirus OC43 Not Detected (Not Detect); Human Metapneumovirus Not Detected (Not Detect); Human Rhinovirus/Enterovirus Not Detected (Not Detect); Influenza A Subtype 2009 H1 Not Detected (Not Detect); Influenza B Not Detected (Not Detect); Mycoplasma pneumoniae Not Detected (Not Detect); Parainfluenza Virus 1 Not Detected (Not Detect); Parainfluenza Virus 2 Not Detected (Not Detect); Parainfluenza Virus 3 Not Detected (Not Detect); Parainfluenza Virus 4 Not Detected (Not Detect); Respiratory Syncytial Virus Not Detected (Not Detect); SARS-CoV-2 Not Detected (Not Detect)
[2020-04-13] MEDS: Insulin DETEMIR 100 UNIT/ML X5UNITS SQ SCH (21:36)
[2020-04-13] MEDS: Gabapentin 100 MG CAPSULE PO SCH (22:32)
[2020-04-14] MEDS: MethylPREDNISolone 40 MG/ML VIAL IVP SCH (05:19)
[2020-04-14 06:00] LABS: Albumin 3.8 g/dL (3.5-5.7); Albumin/Globulin Ratio 1.2 (1.1-2.2); Bilirubin,Total 0.4 mg/dL (0.3-1.0); Calcium 8.5 mg/dL (8.6-10.3); Chol/HDL Ratio 3.8 (0-4.9); Globulin 3.1 g/dL (2.4-3.5); Magnesium 2.5 mg/dL (1.6-2.6); Phosphorous 4.6 mg/dL (2.7-4.5); Potassium 4.5 mEq/L (3.5-5.1); Total Protein 6.9 g/dL (6.4-8.9)
[2020-04-14] MEDS: Insulin LISPRO 300 UNITS/3 ML VIAL SQ SCH ×3 (07:32→16:50)
[2020-04-14] MEDS: FLUoxetine 20 MG CAPSULE PO SCH (09:09)
[2020-04-14] MEDS: Metoprolol XL (24 HR) Succ 50 MG TAB.ER.24H PO SCH (09:09)
[2020-04-14] MEDS: Gabapentin 100 MG CAPSULE PO SCH ×2 (09:09→20:50)
[2020-04-14] MEDS: Topiramate 25 MG TABLET PO SCH (09:09)
[2020-04-14] MEDS: Isosorbide MONOnitrate (24 HR) 60 MG TAB.ER.24H PO SCH (09:09)
[2020-04-14] MEDS: amLODIPine 5 MG TABLET PO SCH (09:09)
[2020-04-14] MEDS: Aspirin 81 MG TAB.CHEW PO SCH (09:09)
[2020-04-14] MEDS: Bumetanide 1 MG/4 ML VIAL IVP SCH ×2 (09:10→16:38)
[2020-04-14] MEDS: Cholecalciferol (D-3) 1,000 UNIT (25MCG) TABLET PO SCH (09:12)
[2020-04-14] MEDS: hydrALAZINE 25 MG TABLET PO SCH ×3 (09:12→20:51)
[2020-04-14] MEDS ORDERED: Dexamethasone 4 MG/ML VIAL IVP SCH (15:30)
[2020-04-14] MEDS ORDERED: cefTRIAXone 1,000 MG in 0.9 % Sodium Chloride Mini Bag 100 ML IVPB SCH (16:00)
[2020-04-14] MEDS: Azithromycin 500 MG in 0.9 % Sodium Chloride 250 ML IVPB SCH (16:55)
[2020-04-14] MEDS ORDERED: Budesonide/Formoterol 160/4.5 1 PUFF INH IH ONE (16:56)
[2020-04-14] MEDS: Ipratropium 1 PUFF INHALER IH SCH ×2 (17:01→22:49)
[2020-04-14] MEDS: cefTRIAXone 1,000 MG in Water for inj. (sterile) 10 ML IVP SCH (17:08)
[2020-04-14] MEDS: Ofloxacin OPTH Drops 5 ML BOTTLE RIGHT EYE SCH ×2 (18:26→20:51)
[2020-04-14] MEDS: Insulin DETEMIR 100 UNIT/ML X5UNITS SQ SCH (20:50)
[2020-04-14] MEDS: Dexamethasone 4 MG/ML VIAL IVP SCH (20:51)
[2020-04-14] MEDS: *HR* Heparin 5,000 UNIT/ML VIAL SQ SCH (20:51)
[2020-04-14] MEDS: *HR* HYDROcodone/Acet 5/325 mg TABLET PO PRN (21:03)
[2020-04-14] MEDS: Budesonide/Formoterol 160/4.5 1 PUFF INH IH SCH (22:49)
[2020-04-15] MEDS: *HR* HYDROcodone/Acet 5/325 mg TABLET PO PRN ×2 (03:42→21:08)
[2020-04-15] MEDS: Ipratropium 1 PUFF INHALER IH SCH ×4 (04:09→21:34)
[2020-04-15] MEDS: *HR* Heparin 5,000 UNIT/ML VIAL SQ SCH ×3 (05:25→21:08)
[2020-04-15 06:05] LABS: Bilirubin,Urine Negative (Negative); Blood,Urine Negative (Negative); Clarity,Urine Clear (Clear); Color,Urine Light-Yellow (Yellow); Glucose,Urine (UA) Normal (Normal); Hyaline Casts,Urine Few per lpf (None Seen); Ketones,Urine Negative (Negative); Leukocyte Esterase,Urine Negative (Negative); Mucus,Urine Few per lpf (None-Few); Nitrite,Urine Negative (Negative); PH,Urine 5.5 pH Units (5.0-8.0); Protein,Urine 30 mg/dL (Neg-Trace); RBC,Urine 0-3 per hpf (0-3); Specific Gravity,Urine 1.016 (1.010-1.025); Squamous Epithelial Cell,Urine Few per hpf (None-Few); Urobilinogen,Urine Normal (Normal); WBC,Urine 0-3 per hpf (0-3)
[2020-04-15 06:09] LABS: Protein/Creatinine Ratio,Urine 0.5 mg/mg (0.00-0.20); Sodium, Urine 40.9 mEq/L
[2020-04-15 06:32] LABS: Hematocrit 35.5 % (37.5-50.1); Hemoglobin 10.5 g/dL (12.9-16.9); Mean Corpuscular HGB Conc 29.6 g/dL (31.6-35.5); Mean Corpuscular Hemoglobin 25.4 pg (28.0-33.3); Platelet Count 188 K/mcL (140-400); Red Blood Count 4.13 M/mcL (4.19-5.50); Red Cell Distribution Width 17.2 % (11.5-14.5); White Blood Count 5.8 K/mcL (4.3-11.1)
[2020-04-15 06:57] LABS: Calcium 8.7 mg/dL (8.6-10.3); Magnesium 2.6 mg/dL (1.6-2.6); Phosphorous 4.4 mg/dL (2.7-4.5); Potassium 5.4 mEq/L (3.5-5.1)
[2020-04-15] MEDS: Aspirin 81 MG TAB.CHEW PO SCH (09:15)
[2020-04-15] MEDS: Cholecalciferol (D-3) 1,000 UNIT (25MCG) TABLET PO SCH (09:15)
[2020-04-15] MEDS: FLUoxetine 20 MG CAPSULE PO SCH (09:15)
[2020-04-15] MEDS: hydrALAZINE 25 MG TABLET PO SCH ×3 (09:15→21:09)
[2020-04-15] MEDS: Gabapentin 100 MG CAPSULE PO SCH ×2 (09:15→21:08)
[2020-04-15] MEDS: amLODIPine 5 MG TABLET PO SCH (09:15)
[2020-04-15] MEDS: Isosorbide MONOnitrate (24 HR) 60 MG TAB.ER.24H PO SCH (09:15)
[2020-04-15] MEDS: Topiramate 25 MG TABLET PO SCH (09:15)
[2020-04-15] MEDS: Bumetanide 1 MG/4 ML VIAL IVP SCH ×2 (09:15→18:00)
[2020-04-15] MEDS: Metoprolol XL (24 HR) Succ 50 MG TAB.ER.24H PO SCH (09:15)
[2020-04-15] MEDS: Insulin LISPRO 300 UNITS/3 ML VIAL SQ SCH ×4 (09:16→16:35)
[2020-04-15] MEDS: Dexamethasone 4 MG/ML VIAL IVP SCH ×2 (09:16→21:09)
[2020-04-15] MEDS: Ofloxacin OPTH Drops 5 ML BOTTLE RIGHT EYE SCH ×4 (09:42→21:09)
[2020-04-15] MEDS: Budesonide/Formoterol 160/4.5 1 PUFF INH IH SCH ×2 (10:45→21:35)
[2020-04-15] MEDS: Albumin 25% 25gram/100mL 25 GM/100 ML IV.SOLN IVPB SCH (16:12)
[2020-04-15] MEDS: cefTRIAXone 1,000 MG in Water for inj. (sterile) 10 ML IVP SCH (16:12)
[2020-04-15] MEDS: Azithromycin 250 MG TABLET PO SCH (16:15)
[2020-04-15 18:40] LABS: Estimated Average Glucose 174 mg/dl
[2020-04-15] MEDS: Insulin DETEMIR 100 UNIT/ML X5UNITS SQ SCH (21:08)
[2020-04-16 02:02] LABS: Red Cell Distribution Width 17.2 % (11.5-14.5)
[2020-04-16 02:03] LABS: Hematocrit 34.9 % (37.5-50.1); Hemoglobin 10.2 g/dL (12.9-16.9); Mean Corpuscular HGB Conc 29.2 g/dL (31.6-35.5); Mean Corpuscular Hemoglobin 24.9 pg (28.0-33.3); Mean Corpuscular Volume 85.1 fL (83.0-100.0); Mean Platelet Volume 10.9 fL (9.4-12.4); Platelet Count 215 K/mcL (140-400); White Blood Count 7.5 K/mcL (4.3-11.1)
[2020-04-16 02:18] LABS: Calcium 8.6 mg/dL (8.6-10.3); Magnesium 2.6 mg/dL (1.6-2.6); Phosphorous 3.2 mg/dL (2.7-4.5); Potassium 5.2 mEq/L (3.5-5.1)
[2020-04-16] MEDS: Ipratropium 1 PUFF INHALER IH SCH ×4 (03:38→21:45)
[2020-04-16 04:35] LABS: ABG Base Excess -2 mEq/L (-2 to 3); ABG HCO3 24 mEq/L (21-27); ABG Oxygen Saturation 93 % (95-98); ABG PCO2 46 mmHg (35-45); ABG PH 7.32 pH Units (7.32-7.45); ABG PO2 73 mmHg (85-104); ABG TCO2 26 mEq/L (20-26)
[2020-04-16] MEDS: *HR* Heparin 5,000 UNIT/ML VIAL SQ SCH ×3 (05:30→21:07)
[2020-04-16] MEDS: Cholecalciferol (D-3) 1,000 UNIT (25MCG) TABLET PO SCH (07:57)
[2020-04-16] MEDS: hydrALAZINE 25 MG TABLET PO SCH ×3 (07:58→21:07)
[2020-04-16] MEDS: FLUoxetine 20 MG CAPSULE PO SCH (08:00)
[2020-04-16] MEDS: Topiramate 25 MG TABLET PO SCH (08:00)
[2020-04-16] MEDS: Isosorbide MONOnitrate (24 HR) 60 MG TAB.ER.24H PO SCH (08:01)
[2020-04-16] MEDS: Aspirin 81 MG TAB.CHEW PO SCH (08:01)
[2020-04-16] MEDS: Metoprolol XL (24 HR) Succ 50 MG TAB.ER.24H PO SCH (08:03)
[2020-04-16] MEDS: amLODIPine 5 MG TABLET PO SCH (08:03)
[2020-04-16] MEDS: Gabapentin 100 MG CAPSULE PO SCH ×2 (08:03→21:08)
[2020-04-16] MEDS: Dexamethasone 4 MG/ML VIAL IVP SCH ×2 (08:04→21:05)
[2020-04-16] MEDS: Insulin LISPRO 300 UNITS/3 ML VIAL SQ SCH ×6 (08:34→23:33)
[2020-04-16] MEDS: Ofloxacin OPTH Drops 5 ML BOTTLE RIGHT EYE SCH ×4 (09:00→21:09)
[2020-04-16] MEDS: Insulin DETEMIR 100 UNIT/ML X5UNITS SQ SCH ×2 (10:00→23:36)
[2020-04-16] MEDS ORDERED: Insulin LISPRO 300 UNITS/3 ML VIAL SQ SCH (12:21)
[2020-04-16] MEDS: Budesonide/Formoterol 160/4.5 1 PUFF INH IH SCH ×2 (13:06→21:45)
[2020-04-16] MEDS: Albumin 25% 25gram/100mL 25 GM/100 ML IV.SOLN IVPB SCH (15:24)
[2020-04-16] MEDS: cefTRIAXone 1,000 MG in Water for inj. (sterile) 10 ML IVP SCH (15:25)
[2020-04-16] MEDS: Azithromycin 250 MG TABLET PO SCH (15:26)
[2020-04-16] MEDS ORDERED: Insulin Human Regular 10 UNIT in 0.9 % Sodium Chloride 10 ML IV ONE (15:57)
[2020-04-16] MEDS: Bumetanide 1 MG/4 ML VIAL IVP SCH (18:50)
[2020-04-16] MEDS: *HR* HYDROcodone/Acet 5/325 mg TABLET PO PRN (22:49)
[2020-04-17] MEDS: Ipratropium 1 PUFF INHALER IH SCH ×4 (03:33→22:02)
[2020-04-17] MEDS: *HR* Heparin 5,000 UNIT/ML VIAL SQ SCH ×3 (06:14→20:08)
[2020-04-17 07:06] LABS: Hematocrit 36.2 % (37.5-50.1); Hemoglobin 10.7 g/dL (12.9-16.9); Mean Corpuscular HGB Conc 29.6 g/dL (31.6-35.5); Mean Corpuscular Hemoglobin 25.4 pg (28.0-33.3); Mean Corpuscular Volume 85.8 fL (83.0-100.0); Mean Platelet Volume 11.3 fL (9.4-12.4); Platelet Count 235 K/mcL (140-400); Red Blood Count 4.22 M/mcL (4.19-5.50); Red Cell Distribution Width 17.2 % (11.5-14.5); White Blood Count 9.1 K/mcL (4.3-11.1)
[2020-04-17 07:29] LABS: Calcium 8.8 mg/dL (8.6-10.3); Magnesium 2.7 mg/dL (1.6-2.6); Phosphorous 3.7 mg/dL (2.7-4.5); Potassium 5.1 mEq/L (3.5-5.1)
[2020-04-17] MEDS: Insulin DETEMIR 100 UNIT/ML X5UNITS SQ SCH ×2 (09:03→19:52)
[2020-04-17] MEDS: hydrALAZINE 25 MG TABLET PO SCH ×3 (09:03→19:51)
[2020-04-17] MEDS: Topiramate 25 MG TABLET PO SCH (09:04)
[2020-04-17] MEDS: Cholecalciferol (D-3) 1,000 UNIT (25MCG) TABLET PO SCH (09:04)
[2020-04-17] MEDS: amLODIPine 5 MG TABLET PO SCH (09:05)
[2020-04-17] MEDS: Isosorbide MONOnitrate (24 HR) 60 MG TAB.ER.24H PO SCH (09:05)
[2020-04-17] MEDS: Metoprolol XL (24 HR) Succ 50 MG TAB.ER.24H PO SCH (09:05)
[2020-04-17] MEDS: Aspirin 81 MG TAB.CHEW PO SCH (09:05)
[2020-04-17] MEDS: Gabapentin 100 MG CAPSULE PO SCH ×2 (09:06→19:51)
[2020-04-17] MEDS: FLUoxetine 20 MG CAPSULE PO SCH (09:06)
[2020-04-17] MEDS: Dexamethasone 4 MG/ML VIAL IVP SCH ×2 (09:06→19:50)
[2020-04-17] MEDS: Insulin LISPRO 300 UNITS/3 ML VIAL SQ SCH ×7 (09:09→19:52)
[2020-04-17] MEDS: Ofloxacin OPTH Drops 5 ML BOTTLE RIGHT EYE SCH ×4 (09:20→19:53)
[2020-04-17] MEDS: Budesonide/Formoterol 160/4.5 1 PUFF INH IH SCH ×2 (09:37→22:02)
[2020-04-17] MEDS ORDERED: Perflutren Lipid Microsphere 1.3 ML in 0.9 % Sodium Chloride 8.7 ML IVP PRN (13:45)
[2020-04-17] MEDS: Bumetanide 1 MG/4 ML VIAL IVP SCH (14:01)
[2020-04-17] MEDS: Azithromycin 250 MG TABLET PO SCH (17:29)
[2020-04-17] MEDS: cefTRIAXone 1,000 MG in Water for inj. (sterile) 10 ML IVP SCH (17:31)
[2020-04-18 02:44] LABS: Hematocrit 35.5 % (37.5-50.1); Hemoglobin 10.4 g/dL (12.9-16.9); Mean Corpuscular HGB Conc 29.3 g/dL (31.6-35.5); Mean Corpuscular Hemoglobin 24.9 pg (28.0-33.3); Mean Corpuscular Volume 85.1 fL (83.0-100.0); Mean Platelet Volume 11.1 fL (9.4-12.4); Platelet Count 210 K/mcL (140-400); Red Blood Count 4.17 M/mcL (4.19-5.50); Red Cell Distribution Width 17.4 % (11.5-14.5); White Blood Count 7.1 K/mcL (4.3-11.1)
[2020-04-18 03:05] LABS: Calcium 8.4 mg/dL (8.6-10.3); Magnesium 2.7 mg/dL (1.6-2.6)
[2020-04-18] MEDS: Ipratropium 1 PUFF INHALER IH SCH ×4 (03:46→22:13)
[2020-04-18] MEDS: *HR* Heparin 5,000 UNIT/ML VIAL SQ SCH ×3 (05:13→19:59)
[2020-04-18] MEDS ORDERED: Albumin 25% 25gram/100mL 25 GM/100 ML IV.SOLN IVPB SCH (06:00)
[2020-04-18] MEDS: Bumetanide 1 MG/4 ML VIAL IVP SCH (07:54)
[2020-04-18] MEDS: Cholecalciferol (D-3) 1,000 UNIT (25MCG) TABLET PO SCH (07:55)
[2020-04-18] MEDS: hydrALAZINE 25 MG TABLET PO SCH ×3 (07:55→19:55)
[2020-04-18] MEDS: FLUoxetine 20 MG CAPSULE PO SCH (07:55)
[2020-04-18] MEDS: Ofloxacin OPTH Drops 5 ML BOTTLE RIGHT EYE SCH ×4 (07:55→19:59)
[2020-04-18] MEDS: Dexamethasone 4 MG/ML VIAL IVP SCH (07:55)
[2020-04-18] MEDS: Isosorbide MONOnitrate (24 HR) 60 MG TAB.ER.24H PO SCH (07:56)
[2020-04-18] MEDS: Insulin LISPRO 300 UNITS/3 ML VIAL SQ SCH ×7 (07:56→19:58)
[2020-04-18] MEDS: Insulin DETEMIR 100 UNIT/ML X5UNITS SQ SCH ×2 (07:56→19:56)
[2020-04-18] MEDS: Gabapentin 100 MG CAPSULE PO SCH ×2 (07:56→19:55)
[2020-04-18] MEDS: amLODIPine 5 MG TABLET PO SCH (07:56)
[2020-04-18] MEDS: Aspirin 81 MG TAB.CHEW PO SCH (07:56)
[2020-04-18] MEDS: Topiramate 25 MG TABLET PO SCH (07:56)
[2020-04-18] MEDS: Metoprolol XL (24 HR) Succ 50 MG TAB.ER.24H PO SCH (07:57)
[2020-04-18] MEDS: Budesonide/Formoterol 160/4.5 1 PUFF INH IH SCH ×2 (10:47→22:14)
[2020-04-18] MEDS: predniSONE 20 MG TABLET PO SCH (12:26)
[2020-04-18] MEDS ORDERED: diazePAM 5 MG TABLET PO PRN (15:40)
[2020-04-18] MEDS: Torsemide 20 MG TABLET PO SCH (16:03)
[2020-04-19 03:05] LABS: Calcium 8.9 mg/dL (8.6-10.3); Potassium 4.8 mEq/L (3.5-5.1)
[2020-04-19] MEDS: Ipratropium 1 PUFF INHALER IH SCH ×2 (03:53→10:31)
[2020-04-19] MEDS: *HR* Heparin 5,000 UNIT/ML VIAL SQ SCH (05:24)
[2020-04-19] MEDS: Aspirin 81 MG TAB.CHEW PO SCH (08:03)
[2020-04-19] MEDS: amLODIPine 5 MG TABLET PO SCH (08:03)
[2020-04-19] MEDS: hydrALAZINE 25 MG TABLET PO SCH (08:03)
[2020-04-19] MEDS: Torsemide 20 MG TABLET PO SCH (08:03)
[2020-04-19] MEDS: Isosorbide MONOnitrate (24 HR) 60 MG TAB.ER.24H PO SCH (08:03)
[2020-04-19] MEDS: FLUoxetine 20 MG CAPSULE PO SCH (08:03)
[2020-04-19] MEDS: predniSONE 20 MG TABLET PO SCH (08:03)
[2020-04-19] MEDS: Topiramate 25 MG TABLET PO SCH (08:04)
[2020-04-19] MEDS: Cholecalciferol (D-3) 1,000 UNIT (25MCG) TABLET PO SCH (08:04)
[2020-04-19] MEDS: Gabapentin 100 MG CAPSULE PO SCH (08:04)
[2020-04-19] MEDS: Metoprolol XL (24 HR) Succ 50 MG TAB.ER.24H PO SCH (08:04)
[2020-04-19 08:05] VITALS: BP 164/66
[2020-04-19] MEDS: Ofloxacin OPTH Drops 5 ML BOTTLE RIGHT EYE SCH (08:07)
[2020-04-19] MEDS: Insulin DETEMIR 100 UNIT/ML X5UNITS SQ SCH (08:14)
[2020-04-19] MEDS: Insulin LISPRO 300 UNITS/3 ML VIAL SQ SCH ×2 (08:14)
[2020-04-19] MEDS ORDERED: Cefdinir 300 MG CAPSULE PO SCH (09:00)
[2020-04-19] MEDS: Budesonide/Formoterol 160/4.5 1 PUFF INH IH SCH (10:31)
[2020-04-19] MEDS ORDERED: FLU Vac QV 20-21 (6Month+)/PF 0.5 ML SYRINGE IM ONE (11:12)
== END 2020-04-19 13:17 | disposition home health service (06) | DRG 140 ==
LOC: EMEROOARM 14:39 → 2NENU 14:39 → SUATTDRO 17:00 → 2NENU 18:42 → SUATTDRO 04-15 11:23 → 2ANU 04-16 20:48
PROVIDERS: ADMIT Internal Medicine; ATTEND Internal Medicine

== ENCOUNTER 2020-06-05 13:49 | Inpatient (IN) ==
[2020-06-05] MEDS ORDERED: methylPREDNISolone 125 MG/2 ML VIAL IVP ONE (13:58)
[2020-06-05] MEDS ORDERED: Ipratropium/Albuterol Neb 3 ML IH ONE (13:59)
[2020-06-05] MEDS ORDERED: Bumetanide 1 MG/4 ML VIAL IVP ONE ×2 (14:00→22:00)
[2020-06-05 14:34] LABS: VBG HCO3 32 mEq/L (21-27); VBG PCO2 59 mmHg (41-51); VBG PH 7.34 pH Units (7.32-7.42); VBG PO2 52 mmHg (25-50)
[2020-06-05 14:40] LABS: Basophils % 0.4 %; Hemoglobin 9.6 g/dL (12.9-16.9); Platelet Count 246 K/mcL (140-400); Red Cell Distribution Width 16.7 % (11.5-14.5)
[2020-06-05 14:41] LABS: Eosinophils # 0.2 K/mcL (0.0-0.6); Eosinophils % 2.2 %; Hematocrit 33.4 % (37.5-50.1); Immature Granulocytes % 0.2 % (0-4); Lymphocytes # 1.2 K/mcL (0.6-4.6); Lymphocytes % 14.8 %; Mean Corpuscular HGB Conc 28.7 g/dL (31.6-35.5); Mean Corpuscular Hemoglobin 24.8 pg (28.0-33.3); Mean Corpuscular Volume 86.3 fL (83.0-100.0); Mean Platelet Volume 10.6 fL (9.4-12.4); Monocytes # 0.5 K/mcL (0.0-1.3); Monocytes % 6.1 %; Neutrophils # 6.1 K/mcL (1.6-8.9); Red Blood Count 3.87 M/mcL (4.19-5.50); Segmented Neutrophils % 76.3 %
[2020-06-05 14:55] LABS: BUN/Creatinine Ratio 32 (6-26); Blood Urea Nitrogen 45 mg/dL (8-23); Calcium 8.5 mg/dL (8.6-10.3); Carbon Dioxide 30 mEq/L (23-29); Chloride 103 mEq/L (98-107); Glucose 103 mg/dL (70-105); Osmolality,Calculated 304 (280-300); Potassium 4.2 mEq/L (3.5-5.1); Sodium 141 mEq/L (136-145); Troponin I < 0.03 ng/mL (< 0.04); eGFR For African Americans > 60 (> 60); eGFR For Non-African Americans 51 (> 60)
[2020-06-05] MEDS ORDERED: Azithromycin 500 MG in 0.9 % Sodium Chloride 250 ML IVPB ONE (15:40)
[2020-06-05 16:20] LABS: Bacteria,Urine Few per hpf (None-Few); Bilirubin,Urine Negative (Negative); Blood,Urine Negative (Negative); Clarity,Urine Clear (Clear); Color,Urine Light-Yellow (Yellow); Glucose,Urine (UA) Normal (Normal); Hyaline Casts,Urine Few per lpf (None Seen); Ketones,Urine Negative (Negative); Leukocyte Esterase,Urine Negative (Negative); Mucus,Urine Few per lpf (None-Few); Nitrite,Urine Negative (Negative); Protein,Urine 30 mg/dL (Neg-Trace); RBC,Urine 0-3 per hpf (0-3); Specific Gravity,Urine 1.009 (1.010-1.025); Urobilinogen,Urine Normal (Normal); WBC,Urine 0-3 per hpf (0-3)
[2020-06-05] MEDS ORDERED: Acetaminophen 325 MG TABLET PO PRN (16:48)
[2020-06-05] MEDS ORDERED: Ondansetron ODT 4 MG TAB.RAPDIS SL PRN (16:48)
[2020-06-05] MEDS ORDERED: Naloxone 0.4 MG/ML INJ IVP PRN (16:48)
[2020-06-05] MEDS: cefTRIAXone 2,000 MG in Water for inj. (sterile) 20 ML IVP SCH (17:10)
[2020-06-05 17:21] LABS: Magnesium 2.1 mg/dL (1.6-2.6); Phosphorous 2.7 mg/dL (2.7-4.5)
[2020-06-05 17:25] LABS: INR 1.3; Prothrombin Time 14.7 Seconds (9.4-12.1)
[2020-06-05] MEDS ORDERED: Dextrose Gel 15 GM/37.5 ML TUBE PO PRN ×2 (18:28)
[2020-06-05] MEDS ORDERED: D5% in Water 1,000 ML IVC PRN (18:28)
[2020-06-05] MEDS ORDERED: *HR* Dextrose 50 % in Water (Vial) 50 ML VIAL IVP PRN (18:28)
[2020-06-05] MEDS: Aspirin Enteric Coated 81 MG Tablet PO SCH (19:40)
[2020-06-05] MEDS: hydrALAZINE 25 MG TABLET PO SCH (19:50)
[2020-06-05] MEDS: Azithromycin 500 MG in 0.9 % Sodium Chloride 250 ML IVPB SCH (19:56)
[2020-06-05] MEDS: *HR* Heparin 5,000 UNIT/ML VIAL SQ SCH (19:57)
[2020-06-05] MEDS: Ipratropium/Albuterol Neb 3 ML IH SCH (20:24)
[2020-06-05] MEDS ORDERED: Insulin DETEMIR 100 UNIT/ML X5UNITS SQ SCH (21:00)
[2020-06-05] MEDS: Insulin LISPRO 300 UNITS/3 ML VIAL SQ SCH (21:32)
[2020-06-06] MEDS: Ipratropium/Albuterol Neb 3 ML IH SCH ×7 (00:07→23:02)
[2020-06-06 02:56] LABS: Basophils % 0.2 %; Lymphocytes % 8.8 %
[2020-06-06 02:57] LABS: Hematocrit 33.8 % (37.5-50.1); Hemoglobin 9.8 g/dL (12.9-16.9); Immature Granulocytes % 0.6 % (0-4); Lymphocytes # 0.6 K/mcL (0.6-4.6); Mean Corpuscular Hemoglobin 24.6 pg (28.0-33.3); Mean Corpuscular Volume 84.9 fL (83.0-100.0); Mean Platelet Volume 10.8 fL (9.4-12.4); Monocytes # 0.1 K/mcL (0.0-1.3); Monocytes % 1.4 %; Neutrophils # 5.8 K/mcL (1.6-8.9); Platelet Count 242 K/mcL (140-400); Red Blood Count 3.98 M/mcL (4.19-5.50); Red Cell Distribution Width 16.5 % (11.5-14.5); White Blood Count 6.5 K/mcL (4.3-11.1)
[2020-06-06 03:11] LABS: BUN/Creatinine Ratio 33 (6-26); Blood Urea Nitrogen 46 mg/dL (8-23); Calcium 8.6 mg/dL (8.6-10.3); Carbon Dioxide 27 mEq/L (23-29); Chloride 102 mEq/L (98-107); Glucose 194 mg/dL (70-105); Osmolality,Calculated 305 (280-300); Potassium 4.4 mEq/L (3.5-5.1); Sodium 139 mEq/L (136-145); eGFR For African Americans > 60 (> 60); eGFR For Non-African Americans 52 (> 60)
[2020-06-06 03:22] LABS: Hypochromasia Present (Not Present); Platelet Estimate Normal (Normal)
[2020-06-06] MEDS: *HR* Heparin 5,000 UNIT/ML VIAL SQ SCH ×3 (04:58→21:11)
[2020-06-06] MEDS ORDERED: MethylPREDNISolone 40 MG/ML VIAL IVP SCH (06:00)
[2020-06-06] MEDS: Metoprolol XL (24 HR) Succ 50 MG TAB.ER.24H PO SCH (09:18)
[2020-06-06] MEDS: Isosorbide MONOnitrate (24 HR) 60 MG TAB.ER.24H PO SCH (09:18)
[2020-06-06] MEDS: FLUoxetine 20 MG CAPSULE PO SCH (09:18)
[2020-06-06] MEDS: hydrALAZINE 25 MG TABLET PO SCH ×3 (09:18→21:10)
[2020-06-06] MEDS: Insulin LISPRO 300 UNITS/3 ML VIAL SQ SCH ×5 (09:21→21:11)
[2020-06-06 12:37] LABS: Adenovirus Not Detected (Not Detect); Bordetella Pertussis Not Detected (Not Detect); Chlamydophila pneumoniae Not Detected (Not Detect); Coronavirus 229E Not Detected (Not Detect); Coronavirus HKU1 Not Detected (Not Detect); Coronavirus NL63 Not Detected (Not Detect); Coronavirus OC43 Not Detected (Not Detect); Human Metapneumovirus Not Detected (Not Detect); Human Rhinovirus/Enterovirus Not Detected (Not Detect); Influenza A Subtype 2009 H1 Not Detected (Not Detect); Influenza B Not Detected (Not Detect); Mycoplasma pneumoniae Not Detected (Not Detect); Parainfluenza Virus 1 Not Detected (Not Detect); Parainfluenza Virus 2 Not Detected (Not Detect); Parainfluenza Virus 3 Not Detected (Not Detect); Parainfluenza Virus 4 Not Detected (Not Detect); Respiratory Syncytial Virus Not Detected (Not Detect); SARS-CoV-2 Not Detected (Not Detect)
[2020-06-06] MEDS: cefTRIAXone 2,000 MG in Water for inj. (sterile) 20 ML IVP SCH (14:19)
[2020-06-06] MEDS ORDERED: Insulin DETEMIR 100 UNIT/ML X5UNITS SQ ONE (14:46)
[2020-06-06] MEDS ORDERED: Azithromycin 500 MG in 0.9 % Sodium Chloride 250 ML IVPB SCH (17:00)
[2020-06-06] MEDS: Azithromycin 500 MG in 0.9 % Sodium Chloride 250 ML IVPB SCH (17:29)
[2020-06-06] MEDS: Albumin 25% 25gram/100mL 25 GM/100 ML IV.SOLN IVPB SCH (17:30)
[2020-06-06] MEDS: Bumetanide 1 MG/4 ML VIAL IVP SCH (17:31)
[2020-06-06] MEDS: Gabapentin 100 MG CAPSULE PO SCH (21:10)
[2020-06-06] MEDS: Insulin DETEMIR 100 UNIT/ML X5UNITS SQ SCH (21:12)
[2020-06-07] MEDS: Ipratropium/Albuterol Neb 3 ML IH SCH ×6 (03:34→23:59)
[2020-06-07 04:28] LABS: Basophils % 0.2 %; Hemoglobin 9.2 g/dL (12.9-16.9); Immature Granulocytes % 0.4 % (0-4); Mean Platelet Volume 10.4 fL (9.4-12.4); Red Cell Distribution Width 16.8 % (11.5-14.5)
[2020-06-07 04:30] LABS: Eosinophils # 0.1 K/mcL (0.0-0.6); Eosinophils % 0.5 %; Hematocrit 31.7 % (37.5-50.1); Lymphocytes # 1.2 K/mcL (0.6-4.6); Lymphocytes % 11.9 %; Mean Corpuscular Hemoglobin 24.7 pg (28.0-33.3); Mean Corpuscular Volume 85.2 fL (83.0-100.0); Monocytes # 0.7 K/mcL (0.0-1.3); Monocytes % 6.3 %; Neutrophils # 8.4 K/mcL (1.6-8.9); Platelet Count 232 K/mcL (140-400); Red Blood Count 3.72 M/mcL (4.19-5.50); Segmented Neutrophils % 80.7 %; White Blood Count 10.4 K/mcL (4.3-11.1)
[2020-06-07 04:45] LABS: % Iron Saturation 16 % (20-55); Iron 42 mcg/dL (65-175); Transferrin 190 mg/dL (203-362)
[2020-06-07 04:47] LABS: Calcium 8.1 mg/dL (8.6-10.3); Potassium 4.1 mEq/L (3.5-5.1)
[2020-06-07 05:01] LABS: Thyroid Stimulating Hormone 5.211 mcIU/mL (0.340-5.600)
[2020-06-07] MEDS: *HR* Heparin 5,000 UNIT/ML VIAL SQ SCH ×3 (05:03→20:55)
[2020-06-07] MEDS: diazePAM 5 MG TABLET PO PRN (05:04)
[2020-06-07 05:11] LABS: Folate 3.6 ng/mL (3.0-16.0)
[2020-06-07 05:36] LABS: Hypochromasia Present (Not Present); Platelet Estimate Normal (Normal)
[2020-06-07] MEDS: predniSONE 20 MG TABLET PO SCH (07:43)
[2020-06-07] MEDS: amLODIPine 5 MG TABLET PO SCH (07:43)
[2020-06-07] MEDS: hydrALAZINE 25 MG TABLET PO SCH ×3 (07:43→20:58)
[2020-06-07] MEDS: Gabapentin 100 MG CAPSULE PO SCH ×2 (07:44→20:59)
[2020-06-07] MEDS: Isosorbide MONOnitrate (24 HR) 60 MG TAB.ER.24H PO SCH (07:44)
[2020-06-07] MEDS: Bumetanide 1 MG/4 ML VIAL IVP SCH ×2 (07:44→16:54)
[2020-06-07] MEDS: Metoprolol XL (24 HR) Succ 50 MG TAB.ER.24H PO SCH (07:44)
[2020-06-07] MEDS: FLUoxetine 20 MG CAPSULE PO SCH (07:44)
[2020-06-07] MEDS: Cholecalciferol (D-3) 1,000 UNIT (25MCG) TABLET PO SCH (07:44)
[2020-06-07] MEDS: Albumin 25% 25gram/100mL 25 GM/100 ML IV.SOLN IVPB SCH ×2 (07:45→16:53)
[2020-06-07] MEDS: Insulin LISPRO 300 UNITS/3 ML VIAL SQ SCH ×4 (07:46→20:59)
[2020-06-07] MEDS: Insulin DETEMIR 100 UNIT/ML X5UNITS SQ SCH ×2 (08:01→20:59)
[2020-06-07 16:04] LABS: Estimated Average Glucose 212 mg/dl
[2020-06-07] MEDS: Aspirin Enteric Coated 81 MG Tablet PO SCH (16:53)
[2020-06-07] MEDS: Azithromycin 500 MG in 0.9 % Sodium Chloride 250 ML IVPB SCH (18:41)
[2020-06-07] MEDS ORDERED: Ipratropium/Albuterol Neb 3 ML IH PRN (19:47)
[2020-06-07] MEDS ORDERED: Budesonide Neb 0.5 MG/2 ML IH ONE (19:59)
[2020-06-07] MEDS: Budesonide Neb 0.5 MG/2 ML IH SCH (20:00)
[2020-06-07 20:41] LABS: BUN/Creatinine Ratio 38 (6-26); Blood Urea Nitrogen 62 mg/dL (8-23); Calcium 8.3 mg/dL (8.6-10.3); Carbon Dioxide 25 mEq/L (23-29); Chloride 100 mEq/L (98-107); Glucose 386 mg/dL (70-105); Osmolality,Calculated 312 (280-300); Potassium 4.9 mEq/L (3.5-5.1); Sodium 134 mEq/L (136-145); eGFR For African Americans 52 (> 60); eGFR For Non-African Americans 43 (> 60)
[2020-06-07 20:43] LABS: Troponin I < 0.03 ng/mL (< 0.04)
[2020-06-07] MEDS ORDERED: Insulin LISPRO 300 UNITS/3 ML VIAL SQ ONE (23:04)
[2020-06-08 03:45] LABS: Basophils % 0.1 %; Eosinophils % 0.5 %; Hematocrit 31.6 % (37.5-50.1); Hemoglobin 9.2 g/dL (12.9-16.9); Immature Granulocytes % 0.2 % (0-4); Lymphocytes % 12.6 %; Mean Corpuscular HGB Conc 29.1 g/dL (31.6-35.5); Mean Corpuscular Hemoglobin 24.9 pg (28.0-33.3); Mean Corpuscular Volume 85.6 fL (83.0-100.0); Mean Platelet Volume 10.7 fL (9.4-12.4); Monocytes # 0.5 K/mcL (0.0-1.3); Monocytes % 6.4 %; Neutrophils # 6.6 K/mcL (1.6-8.9); Platelet Count 230 K/mcL (140-400); Red Blood Count 3.69 M/mcL (4.19-5.50); Red Cell Distribution Width 16.7 % (11.5-14.5); Segmented Neutrophils % 80.2 %; White Blood Count 8.3 K/mcL (4.3-11.1)
[2020-06-08 04:01] LABS: Calcium 8.6 mg/dL (8.6-10.3); Magnesium 2.1 mg/dL (1.6-2.6); Potassium 4.4 mEq/L (3.5-5.1)
[2020-06-08] MEDS: Ipratropium/Albuterol Neb 3 ML IH SCH ×5 (04:15→20:35)
[2020-06-08] MEDS: *HR* Heparin 5,000 UNIT/ML VIAL SQ SCH ×3 (05:10→19:36)
[2020-06-08] MEDS: Budesonide Neb 0.5 MG/2 ML IH SCH ×2 (07:25→20:36)
[2020-06-08] MEDS: Cholecalciferol (D-3) 1,000 UNIT (25MCG) TABLET PO SCH (08:52)
[2020-06-08] MEDS: predniSONE 20 MG TABLET PO SCH (08:53)
[2020-06-08] MEDS: hydrALAZINE 25 MG TABLET PO SCH ×3 (08:53→19:36)
[2020-06-08] MEDS: FLUoxetine 20 MG CAPSULE PO SCH (08:53)
[2020-06-08] MEDS: Gabapentin 100 MG CAPSULE PO SCH ×2 (08:53→19:36)
[2020-06-08] MEDS: Isosorbide MONOnitrate (24 HR) 60 MG TAB.ER.24H PO SCH (08:53)
[2020-06-08] MEDS: amLODIPine 5 MG TABLET PO SCH (08:53)
[2020-06-08] MEDS: Bumetanide 1 MG/4 ML VIAL IVP SCH ×2 (08:54→16:24)
[2020-06-08] MEDS: Insulin LISPRO 300 UNITS/3 ML VIAL SQ SCH ×4 (08:55→21:15)
[2020-06-08] MEDS: Insulin DETEMIR 100 UNIT/ML X5UNITS SQ SCH ×2 (09:13→21:15)
[2020-06-08] MEDS: Albumin 25% 25gram/100mL 25 GM/100 ML IV.SOLN IVPB SCH ×2 (09:14→16:23)
[2020-06-08] MEDS ORDERED: cefTRIAXone 1,000 MG in 0.9 % Sodium Chloride Mini Bag 100 ML IVPB SCH (12:00)
[2020-06-08] MEDS: cefTRIAXone 1,000 MG in Water for inj. (sterile) 10 ML IVP SCH (12:41)
[2020-06-08] MEDS: MethylPREDNISolone 40 MG/ML VIAL IVP SCH (13:12)
[2020-06-08] MEDS: diazePAM 5 MG TABLET PO PRN (13:12)
[2020-06-08] MEDS: Azithromycin 250 MG TABLET PO SCH (18:11)
[2020-06-09] MEDS: Ipratropium/Albuterol Neb 3 ML IH SCH ×6 (00:06→20:14)
[2020-06-09 03:21] LABS: BUN/Creatinine Ratio 24 (6-26); Blood Urea Nitrogen 24 mg/dL (8-23); Calcium 7.3 mg/dL (8.6-10.3); Carbon Dioxide 33 mEq/L (23-29); Chloride 99 mEq/L (98-107); Glucose 113 mg/dL (70-105); Magnesium 2.1 mg/dL (1.6-2.6); Osmolality,Calculated 289 (280-300); Potassium 4.1 mEq/L (3.5-5.1); Sodium 137 mEq/L (136-145); eGFR For African Americans > 60 (> 60); eGFR For Non-African Americans > 60 (> 60)
[2020-06-09 03:23] LABS: Hematocrit 24.1 % (37.5-50.1); Hemoglobin 7.1 g/dL (12.9-16.9); Immature Granulocytes % 0.3 % (0-4); Lymphocytes # 0.8 K/mcL (0.6-4.6); Lymphocytes % 12.3 %; Mean Corpuscular HGB Conc 29.5 g/dL (31.6-35.5); Mean Corpuscular Hemoglobin 27.2 pg (28.0-33.3); Mean Corpuscular Volume 92.3 fL (83.0-100.0); Mean Platelet Volume 8.9 fL (9.4-12.4); Monocytes # 0.6 K/mcL (0.0-1.3); Platelet Count 431 K/mcL (140-400); Red Blood Count 2.61 M/mcL (4.19-5.50); Red Cell Distribution Width 16.2 % (11.5-14.5); Segmented Neutrophils % 78.4 %; White Blood Count 6.3 K/mcL (4.3-11.1)
[2020-06-09] MEDS: *HR* Heparin 5,000 UNIT/ML VIAL SQ SCH (05:27)
[2020-06-09] MEDS: Budesonide Neb 0.5 MG/2 ML IH SCH ×2 (07:39→20:15)
[2020-06-09] MEDS: MethylPREDNISolone 40 MG/ML VIAL IVP SCH (08:57)
[2020-06-09] MEDS: Isosorbide MONOnitrate (24 HR) 60 MG TAB.ER.24H PO SCH (08:58)
[2020-06-09] MEDS: Cholecalciferol (D-3) 1,000 UNIT (25MCG) TABLET PO SCH (08:58)
[2020-06-09] MEDS: Gabapentin 100 MG CAPSULE PO SCH ×2 (08:58→19:47)
[2020-06-09] MEDS: Bumetanide 1 MG/4 ML VIAL IVP SCH ×2 (08:58→16:12)
[2020-06-09] MEDS: FLUoxetine 20 MG CAPSULE PO SCH (08:58)
[2020-06-09] MEDS: Albumin 25% 25gram/100mL 25 GM/100 ML IV.SOLN IVPB SCH ×2 (08:59→16:13)
[2020-06-09] MEDS: amLODIPine 5 MG TABLET PO SCH (08:59)
[2020-06-09] MEDS: hydrALAZINE 25 MG TABLET PO SCH ×3 (09:00→19:47)
[2020-06-09] MEDS: Insulin DETEMIR 100 UNIT/ML X5UNITS SQ SCH (09:01)
[2020-06-09] MEDS: Insulin LISPRO 300 UNITS/3 ML VIAL SQ SCH ×4 (09:02→19:49)
[2020-06-09 09:14] LABS: Hematocrit 30.1 % (37.5-50.1)
[2020-06-09 09:16] LABS: Hemoglobin 8.7 g/dL (12.9-16.9)
[2020-06-09] MEDS ORDERED: Insulin DETEMIR 100 UNIT/ML X5UNITS SQ ONE (11:24)
[2020-06-09] MEDS: Pantoprazole 40 MG VIAL IVP SCH ×2 (11:44→16:13)
[2020-06-09] MEDS: cefTRIAXone 1,000 MG in Water for inj. (sterile) 10 ML IVP SCH (11:46)
[2020-06-09 14:35] LABS: Hematocrit 30.9 % (37.5-50.1); Hemoglobin 8.9 g/dL (12.9-16.9)
[2020-06-09] MEDS: Aspirin Enteric Coated 81 MG Tablet PO SCH (19:48)
[2020-06-09] MEDS: Azithromycin 250 MG TABLET PO SCH (19:48)
[2020-06-09] MEDS: diazePAM 5 MG TABLET PO PRN (19:48)
[2020-06-09] MEDS ORDERED: Insulin DETEMIR 100 UNIT/ML X5UNITS SQ SCH (21:00)
[2020-06-09 21:26] LABS: Hemoglobin 8.8 g/dL (12.9-16.9)
[2020-06-10] MEDS: Ipratropium/Albuterol Neb 3 ML IH SCH ×6 (00:03→20:19)
[2020-06-10] MEDS: Pantoprazole 40 MG VIAL IVP SCH ×2 (05:57→17:07)
[2020-06-10 06:48] LABS: Calcium 9.1 mg/dL (8.6-10.3); Magnesium 2.1 mg/dL (1.6-2.6); Potassium 4.3 mEq/L (3.5-5.1)
[2020-06-10] MEDS: Budesonide Neb 0.5 MG/2 ML IH SCH (07:20)
[2020-06-10] MEDS: MethylPREDNISolone 40 MG/ML VIAL IVP SCH (08:11)
[2020-06-10] MEDS: hydrALAZINE 25 MG TABLET PO SCH ×3 (08:12→21:09)
[2020-06-10] MEDS: Albumin 25% 25gram/100mL 25 GM/100 ML IV.SOLN IVPB SCH (08:12)
[2020-06-10] MEDS: Isosorbide MONOnitrate (24 HR) 60 MG TAB.ER.24H PO SCH (08:12)
[2020-06-10] MEDS: FLUoxetine 20 MG CAPSULE PO SCH (08:12)
[2020-06-10] MEDS: Cholecalciferol (D-3) 1,000 UNIT (25MCG) TABLET PO SCH (08:12)
[2020-06-10] MEDS: Gabapentin 100 MG CAPSULE PO SCH ×2 (08:13→21:09)
[2020-06-10] MEDS: Insulin LISPRO 300 UNITS/3 ML VIAL SQ SCH ×4 (08:13→21:09)
[2020-06-10] MEDS: amLODIPine 5 MG TABLET PO SCH (08:13)
[2020-06-10 08:54] LABS: Basophils % 0.1 %; Hemoglobin 8.6 g/dL (12.9-16.9)
[2020-06-10 08:55] LABS: Eosinophils % 0.4 %; Hematocrit 29.6 % (37.5-50.1); Immature Granulocytes % 0.5 % (0-4); Lymphocytes # 1.1 K/mcL (0.6-4.6); Lymphocytes % 11.6 %; Mean Corpuscular HGB Conc 29.1 g/dL (31.6-35.5); Mean Corpuscular Hemoglobin 24.7 pg (28.0-33.3); Mean Corpuscular Volume 85.1 fL (83.0-100.0); Mean Platelet Volume 11.1 fL (9.4-12.4); Monocytes # 0.5 K/mcL (0.0-1.3); Monocytes % 5.6 %; Platelet Count 202 K/mcL (140-400); Red Blood Count 3.48 M/mcL (4.19-5.50); Red Cell Distribution Width 17.1 % (11.5-14.5); Segmented Neutrophils % 81.8 %; White Blood Count 9.7 K/mcL (4.3-11.1)
[2020-06-10 09:02] LABS: Neutrophils # 7.9 K/mcL (1.6-8.9)
[2020-06-10 09:46] LABS: Anisocytosis 1+ (Not Present); Platelet Estimate Normal (Normal)
[2020-06-10 11:34] LABS: ABG Base Excess 4 mEq/L (-2 to 3); ABG HCO3 30 mEq/L (21-27); ABG Oxygen Saturation 99 % (95-98); ABG PCO2 56 mmHg (35-45); ABG PH 7.34 pH Units (7.32-7.45); ABG PO2 167 mmHg (85-104); ABG TCO2 32 mEq/L (20-26); Blood Gas Modality BIVENT
[2020-06-10] MEDS: Bumetanide 1 MG/4 ML VIAL IVP SCH (13:25)
[2020-06-10] MEDS: Insulin DETEMIR 100 UNIT/ML X5UNITS SQ SCH ×2 (13:26→21:09)
[2020-06-10] MEDS: cefTRIAXone 1,000 MG in Water for inj. (sterile) 10 ML IVP SCH (17:05)
[2020-06-11] MEDS: Budesonide Neb 0.5 MG/2 ML IH SCH ×3 (00:21→20:17)
[2020-06-11] MEDS: Ipratropium/Albuterol Neb 3 ML IH SCH ×6 (00:21→20:17)
[2020-06-11] MEDS: Pantoprazole 40 MG VIAL IVP SCH ×2 (05:42→18:04)
[2020-06-11] MEDS: FLUoxetine 20 MG CAPSULE PO SCH (08:28)
[2020-06-11] MEDS: Gabapentin 100 MG CAPSULE PO SCH ×2 (08:28→19:53)
[2020-06-11] MEDS: Cholecalciferol (D-3) 1,000 UNIT (25MCG) TABLET PO SCH (08:28)
[2020-06-11] MEDS: Insulin LISPRO 300 UNITS/3 ML VIAL SQ SCH ×4 (08:34→19:56)
[2020-06-11] MEDS: Insulin DETEMIR 100 UNIT/ML X5UNITS SQ SCH ×2 (08:37→19:53)
[2020-06-11] MEDS: MethylPREDNISolone 40 MG/ML VIAL IVP SCH (08:38)
[2020-06-11 08:43] LABS: Eosinophils # 0.1 K/mcL (0.0-0.6); Hematocrit 30.1 % (37.5-50.1); Hemoglobin 8.8 g/dL (12.9-16.9); Immature Granulocytes % 0.5 % (0-4); Lymphocytes # 1.2 K/mcL (0.6-4.6); Lymphocytes % 11.7 %; Mean Corpuscular HGB Conc 29.2 g/dL (31.6-35.5); Mean Corpuscular Hemoglobin 24.5 pg (28.0-33.3); Mean Corpuscular Volume 83.8 fL (83.0-100.0); Mean Platelet Volume 10.7 fL (9.4-12.4); Monocytes # 0.5 K/mcL (0.0-1.3); Monocytes % 4.8 %; Neutrophils # 8.1 K/mcL (1.6-8.9); Platelet Count 198 K/mcL (140-400); Red Blood Count 3.59 M/mcL (4.19-5.50); Red Cell Distribution Width 17.1 % (11.5-14.5); White Blood Count 9.9 K/mcL (4.3-11.1)
[2020-06-11] MEDS: Isosorbide MONOnitrate (24 HR) 60 MG TAB.ER.24H PO SCH (08:43)
[2020-06-11] MEDS: amLODIPine 5 MG TABLET PO SCH (08:43)
[2020-06-11] MEDS: hydrALAZINE 25 MG TABLET PO SCH ×3 (08:44→19:53)
[2020-06-11 08:53] LABS: Calcium 9.3 mg/dL (8.6-10.3); Magnesium 2.2 mg/dL (1.6-2.6); Potassium 4.5 mEq/L (3.5-5.1)
[2020-06-11] MEDS: Bumetanide 1 MG/4 ML VIAL IVP SCH ×2 (09:00→18:04)
[2020-06-11] MEDS ORDERED: Insulin DETEMIR 100 UNIT/ML X5UNITS SQ ONE (09:37)
[2020-06-11] MEDS: Cefepime HCl 2,000 MG in 0.9 % Sodium Chloride Mini Bag 100 ML IVPB SCH ×3 (10:14→23:18)
[2020-06-11] MEDS: Albumin 25% 25gram/100mL 25 GM/100 ML IV.SOLN IVPB SCH (16:53)
[2020-06-11] MEDS: Doxycycline 100 MG in 0.9 % Sodium Chloride Mini Bag 100 ML IVPB SCH (18:04)
[2020-06-11] MEDS: Aspirin Enteric Coated 81 MG Tablet PO SCH (18:04)
[2020-06-12] MEDS: Ipratropium/Albuterol Neb 3 ML IH SCH ×7 (00:09→23:26)
[2020-06-12 02:10] LABS: Eosinophils % 0.2 %; Hematocrit 27.4 % (37.5-50.1); Immature Granulocytes % 0.9 % (0-4); Lymphocytes # 0.8 K/mcL (0.6-4.6); Lymphocytes % 7.9 %; Mean Corpuscular HGB Conc 29.2 g/dL (31.6-35.5); Mean Corpuscular Hemoglobin 24.2 pg (28.0-33.3); Mean Platelet Volume 10.9 fL (9.4-12.4); Monocytes # 0.4 K/mcL (0.0-1.3); Neutrophils # 8.3 K/mcL (1.6-8.9); Nucleated Red Blood Cells 0.2 /100 WBC (0); Platelet Count 202 K/mcL (140-400); Red Cell Distribution Width 17.1 % (11.5-14.5); White Blood Count 9.6 K/mcL (4.3-11.1)
[2020-06-12 02:30] LABS: Calcium 8.9 mg/dL (8.6-10.3); Magnesium 2.2 mg/dL (1.6-2.6); Potassium 4.6 mEq/L (3.5-5.1)
[2020-06-12] MEDS: Doxycycline 100 MG in 0.9 % Sodium Chloride Mini Bag 100 ML IVPB SCH ×2 (05:05→17:48)
[2020-06-12] MEDS: Pantoprazole 40 MG VIAL IVP SCH ×2 (05:05→17:50)
[2020-06-12] MEDS ORDERED: Albumin 25% 25gram/100mL 25 GM/100 ML IV.SOLN IVPB SCH (07:30)
[2020-06-12] MEDS: hydrALAZINE 25 MG TABLET PO SCH ×3 (07:37→20:37)
[2020-06-12] MEDS: Cholecalciferol (D-3) 1,000 UNIT (25MCG) TABLET PO SCH (07:38)
[2020-06-12] MEDS: Isosorbide MONOnitrate (24 HR) 60 MG TAB.ER.24H PO SCH (07:38)
[2020-06-12] MEDS: Metoprolol XL (24 HR) Succ 25 MG TAB.ER.24H PO SCH (07:38)
[2020-06-12] MEDS: FLUoxetine 20 MG CAPSULE PO SCH (07:38)
[2020-06-12] MEDS: amLODIPine 5 MG TABLET PO SCH (07:38)
[2020-06-12] MEDS: Gabapentin 100 MG CAPSULE PO SCH ×2 (07:38→20:36)
[2020-06-12] MEDS: MethylPREDNISolone 40 MG/ML VIAL IVP SCH ×3 (07:40→23:20)
[2020-06-12] MEDS: Budesonide Neb 0.5 MG/2 ML IH SCH ×2 (07:43→20:02)
[2020-06-12] MEDS: Cefepime HCl 2,000 MG in 0.9 % Sodium Chloride Mini Bag 100 ML IVPB SCH ×2 (07:44→20:37)
[2020-06-12] MEDS: Insulin LISPRO 300 UNITS/3 ML VIAL SQ SCH ×4 (07:49→20:40)
[2020-06-12] MEDS: Insulin DETEMIR 100 UNIT/ML X5UNITS SQ SCH ×2 (08:21→20:38)
[2020-06-12] MEDS ORDERED: Bumetanide 1 MG/4 ML VIAL IVP SCH (09:00)
[2020-06-12] MEDS ORDERED: Insulin DETEMIR 100 UNIT/ML X5UNITS SQ ONE (10:06)
[2020-06-12] MEDS ORDERED: *HR* OxyCODONE/APAP 5/325 TABLET PO ONE (11:10)
[2020-06-12 11:26] LABS: VBG HCO3 31 mEq/L (21-27); VBG PCO2 57 mmHg (41-51); VBG PH 7.35 pH Units (7.32-7.42); VBG PO2 26 mmHg (25-50)
[2020-06-12 13:24] LABS: Adenovirus Not Detected (Not Detect); Bordetella Pertussis Not Detected (Not Detect); Chlamydophila pneumoniae Not Detected (Not Detect); Coronavirus 229E Not Detected (Not Detect); Coronavirus HKU1 Not Detected (Not Detect); Coronavirus NL63 Not Detected (Not Detect); Coronavirus OC43 Not Detected (Not Detect); Human Metapneumovirus Not Detected (Not Detect); Human Rhinovirus/Enterovirus Not Detected (Not Detect); Influenza A Subtype 2009 H1 Not Detected (Not Detect); Influenza B Not Detected (Not Detect); Mycoplasma pneumoniae Not Detected (Not Detect); Parainfluenza Virus 1 Not Detected (Not Detect); Parainfluenza Virus 2 Not Detected (Not Detect); Parainfluenza Virus 3 Not Detected (Not Detect); Parainfluenza Virus 4 Not Detected (Not Detect); Respiratory Syncytial Virus Not Detected (Not Detect); SARS-CoV-2 Not Detected (Not Detect)
[2020-06-13] MEDS: Ipratropium/Albuterol Neb 3 ML IH SCH ×5 (03:47→20:24)
[2020-06-13 05:18] LABS: Basophils % 0.1 %; Calcium 8.8 mg/dL (8.6-10.3); Magnesium 2.2 mg/dL (1.6-2.6); Potassium 5.1 mEq/L (3.5-5.1)
[2020-06-13 05:20] LABS: Hematocrit 28.8 % (37.5-50.1); Hemoglobin 8.1 g/dL (12.9-16.9); Immature Granulocytes % 1.7 % (0-4); Lymphocytes # 0.4 K/mcL (0.6-4.6); Mean Corpuscular HGB Conc 28.1 g/dL (31.6-35.5); Mean Corpuscular Hemoglobin 23.8 pg (28.0-33.3); Mean Corpuscular Volume 84.5 fL (83.0-100.0); Mean Platelet Volume 11.4 fL (9.4-12.4); Monocytes # 0.2 K/mcL (0.0-1.3); Monocytes % 1.9 %; Platelet Count 207 K/mcL (140-400); Red Blood Count 3.41 M/mcL (4.19-5.50); Red Cell Distribution Width 17.7 % (11.5-14.5); Segmented Neutrophils % 92.3 %; White Blood Count 8.7 K/mcL (4.3-11.1)
[2020-06-13] MEDS: Doxycycline 100 MG in 0.9 % Sodium Chloride Mini Bag 100 ML IVPB SCH ×2 (05:38→17:02)
[2020-06-13] MEDS: Pantoprazole 40 MG VIAL IVP SCH ×2 (05:39→17:02)
[2020-06-13 06:32] LABS: Basophilic Stippling 1+ (Not Present); Hypochromasia Present (Not Present)
[2020-06-13 06:33] LABS: Platelet Estimate Normal (Normal)
[2020-06-13] MEDS: Budesonide Neb 0.5 MG/2 ML IH SCH ×2 (07:51→20:42)
[2020-06-13] MEDS: FLUoxetine 20 MG CAPSULE PO SCH (08:21)
[2020-06-13] MEDS: Cholecalciferol (D-3) 1,000 UNIT (25MCG) TABLET PO SCH (08:21)
[2020-06-13] MEDS: amLODIPine 5 MG TABLET PO SCH (08:21)
[2020-06-13] MEDS: hydrALAZINE 25 MG TABLET PO SCH ×3 (08:21→19:53)
[2020-06-13] MEDS: Metoprolol XL (24 HR) Succ 25 MG TAB.ER.24H PO SCH (08:22)
[2020-06-13] MEDS: Isosorbide MONOnitrate (24 HR) 60 MG TAB.ER.24H PO SCH (08:22)
[2020-06-13] MEDS: MethylPREDNISolone 40 MG/ML VIAL IVP SCH ×3 (08:22→23:04)
[2020-06-13] MEDS: Gabapentin 100 MG CAPSULE PO SCH ×2 (08:22→19:54)
[2020-06-13] MEDS: Cefepime HCl 2,000 MG in 0.9 % Sodium Chloride Mini Bag 100 ML IVPB SCH ×2 (08:22→19:54)
[2020-06-13] MEDS: Insulin LISPRO 300 UNITS/3 ML VIAL SQ SCH ×4 (08:23→19:58)
[2020-06-13] MEDS: Insulin DETEMIR 100 UNIT/ML X5UNITS SQ SCH ×2 (08:23→19:54)
[2020-06-13] MEDS ORDERED: Insulin DETEMIR 100 UNIT/ML X5UNITS SQ ONE (09:46)
[2020-06-13 13:36] LABS: Bacteria,Urine Few per hpf (None-Few); Bilirubin,Urine Negative (Negative); Blood,Urine Negative (Negative); Clarity,Urine Clear (Clear); Color,Urine Light-Yellow (Yellow); Glucose,Urine (UA) 200 mg/dL (Normal); Ketones,Urine Negative (Negative); Leukocyte Esterase,Urine Negative (Negative); Mucus,Urine Few per lpf (None-Few); Nitrite,Urine Negative (Negative); PH,Urine 5.5 pH Units (5.0-8.0); Protein,Urine 50 mg/dL (Neg-Trace); RBC,Urine 0-3 per hpf (0-3); Specific Gravity,Urine 1.016 (1.010-1.025); Urobilinogen,Urine Normal (Normal); WBC,Urine 0-3 per hpf (0-3)
[2020-06-13] MEDS: Aspirin Enteric Coated 81 MG Tablet PO SCH (17:02)
[2020-06-14] MEDS: Ipratropium/Albuterol Neb 3 ML IH SCH ×7 (00:02→23:32)
[2020-06-14 02:33] LABS: Basophils % 0.1 %; Hematocrit 27.9 % (37.5-50.1); Hemoglobin 8.1 g/dL (12.9-16.9); Immature Granulocytes % 1.4 % (0-4); Lymphocytes # 0.4 K/mcL (0.6-4.6); Lymphocytes % 4.3 %; Mean Corpuscular Hemoglobin 24.5 pg (28.0-33.3); Mean Corpuscular Volume 84.3 fL (83.0-100.0); Mean Platelet Volume 11.4 fL (9.4-12.4); Monocytes # 0.3 K/mcL (0.0-1.3); Neutrophils # 9.4 K/mcL (1.6-8.9); Nucleated Red Blood Cells 0.2 /100 WBC (0); Platelet Count 217 K/mcL (140-400); Red Blood Count 3.31 M/mcL (4.19-5.50); Red Cell Distribution Width 17.8 % (11.5-14.5); Segmented Neutrophils % 91.2 %; White Blood Count 10.3 K/mcL (4.3-11.1)
[2020-06-14 02:50] LABS: Calcium 8.5 mg/dL (8.6-10.3); Magnesium 2.3 mg/dL (1.6-2.6)
[2020-06-14] MEDS: Pantoprazole 40 MG VIAL IVP SCH ×2 (05:27→16:49)
[2020-06-14] MEDS: Doxycycline 100 MG in 0.9 % Sodium Chloride Mini Bag 100 ML IVPB SCH (05:28)
[2020-06-14] MEDS: Budesonide Neb 0.5 MG/2 ML IH SCH ×2 (07:18→20:23)
[2020-06-14] MEDS: Insulin LISPRO 300 UNITS/3 ML VIAL SQ SCH ×6 (07:31→20:50)
[2020-06-14] MEDS: MethylPREDNISolone 40 MG/ML VIAL IVP SCH ×3 (07:31→23:04)
[2020-06-14] MEDS: Cefepime HCl 2,000 MG in 0.9 % Sodium Chloride Mini Bag 100 ML IVPB SCH ×2 (07:32→20:49)
[2020-06-14] MEDS: hydrALAZINE 25 MG TABLET PO SCH (07:32)
[2020-06-14] MEDS: FLUoxetine 20 MG CAPSULE PO SCH (07:32)
[2020-06-14] MEDS: Gabapentin 100 MG CAPSULE PO SCH ×2 (07:33→20:47)
[2020-06-14] MEDS: Isosorbide MONOnitrate (24 HR) 60 MG TAB.ER.24H PO SCH (07:33)
[2020-06-14] MEDS: amLODIPine 5 MG TABLET PO SCH (07:33)
[2020-06-14] MEDS: Metoprolol XL (24 HR) Succ 25 MG TAB.ER.24H PO SCH (07:33)
[2020-06-14] MEDS: Cholecalciferol (D-3) 1,000 UNIT (25MCG) TABLET PO SCH (07:33)
[2020-06-14] MEDS: Insulin DETEMIR 100 UNIT/ML X5UNITS SQ SCH ×2 (07:43→22:40)
[2020-06-14 15:04] LABS: Albumin 4.4 g/dL (3.5-5.7)
[2020-06-14] MEDS: Doxycycline 100 MG CAPSULE PO SCH (20:47)
[2020-06-14] MEDS ORDERED: hydrALAZINE 25 MG TABLET PO SCH (21:00)
[2020-06-14] MEDS ORDERED: *HR* HYDROcodone/Acet 5/325 mg TABLET PO ONE (22:47)
[2020-06-14 23:05] LABS: A.galactomannan Ag Index 0.03
[2020-06-15] MEDS: Ipratropium/Albuterol Neb 3 ML IH SCH ×6 (03:53→23:15)
[2020-06-15 05:27] LABS: Basophils % 0.1 %; Hematocrit 28.5 % (37.5-50.1); Hemoglobin 8.4 g/dL (12.9-16.9); Immature Granulocytes % 1.7 % (0-4); Lymphocytes # 0.5 K/mcL (0.6-4.6); Mean Corpuscular HGB Conc 29.5 g/dL (31.6-35.5); Mean Corpuscular Hemoglobin 25.1 pg (28.0-33.3); Mean Corpuscular Volume 85.1 fL (83.0-100.0); Mean Platelet Volume 12.1 fL (9.4-12.4); Monocytes # 0.2 K/mcL (0.0-1.3); Monocytes % 2.2 %; Platelet Count 233 K/mcL (140-400); Red Blood Count 3.35 M/mcL (4.19-5.50); Red Cell Distribution Width 17.9 % (11.5-14.5); White Blood Count 9.9 K/mcL (4.3-11.1)
[2020-06-15] MEDS: Pantoprazole 40 MG VIAL IVP SCH ×2 (05:31→16:58)
[2020-06-15 05:50] LABS: Blood Urea Nitrogen > 130 mg/dL (8-23); Calcium 8.9 mg/dL (8.6-10.3); Carbon Dioxide 22 mEq/L (23-29); Chloride 103 mEq/L (98-107); Glucose 192 mg/dL (70-105); Magnesium 2.4 mg/dL (1.6-2.6); Potassium 4.9 mEq/L (3.5-5.1); Sodium 137 mEq/L (136-145); eGFR For African Americans 29 (> 60); eGFR For Non-African Americans 24 (> 60)
[2020-06-15 07:24] LABS: ANA IgG by ELISA NONE DETECTED (None Detected); Serine Protease-3 Antibody 8 AU/mL (0-19)
[2020-06-15] MEDS: Insulin LISPRO 300 UNITS/3 ML VIAL SQ SCH ×7 (07:39→20:22)
[2020-06-15] MEDS: MethylPREDNISolone 40 MG/ML VIAL IVP SCH ×3 (07:39→23:28)
[2020-06-15] MEDS: Gabapentin 100 MG CAPSULE PO SCH ×2 (07:40→20:21)
[2020-06-15] MEDS: Cholecalciferol (D-3) 1,000 UNIT (25MCG) TABLET PO SCH (07:40)
[2020-06-15] MEDS: FLUoxetine 20 MG CAPSULE PO SCH (07:40)
[2020-06-15] MEDS: Doxycycline 100 MG CAPSULE PO SCH (07:40)
[2020-06-15] MEDS: Cefepime HCl 2,000 MG in 0.9 % Sodium Chloride Mini Bag 100 ML IVPB SCH (07:40)
[2020-06-15] MEDS: amLODIPine 5 MG TABLET PO SCH (07:41)
[2020-06-15] MEDS: Metoprolol XL (24 HR) Succ 25 MG TAB.ER.24H PO SCH (07:41)
[2020-06-15] MEDS: Isosorbide MONOnitrate (24 HR) 60 MG TAB.ER.24H PO SCH (07:41)
[2020-06-15] MEDS: Insulin DETEMIR 100 UNIT/ML X5UNITS SQ SCH ×2 (07:44→20:21)
[2020-06-15] MEDS: Budesonide Neb 0.5 MG/2 ML IH SCH ×2 (07:44→19:47)
[2020-06-15 08:04] LABS: SSA 52 (Anti-RO) Antibody 1 AU/mL (0-40); SSA 60 (Anti-RO) Antibody 0 AU/mL (0-40)
[2020-06-15] MEDS: diazePAM 5 MG TABLET PO PRN (10:18)
[2020-06-15] MEDS: Albumin 25% 25gram/100mL 25 GM/100 ML IV.SOLN IVC SCH ×4 (15:33→21:59)
[2020-06-15] MEDS ORDERED: *HR* LORazepam 0.5 MG TABLET PO ONE (15:50)
[2020-06-15] MEDS: Aspirin Enteric Coated 81 MG Tablet PO SCH (16:58)
[2020-06-16] MEDS: Ipratropium/Albuterol Neb 3 ML IH SCH ×6 (04:17→23:41)
[2020-06-16] MEDS: Pantoprazole 40 MG VIAL IVP SCH ×2 (04:31→16:38)
[2020-06-16] MEDS: diazePAM 5 MG TABLET PO PRN (04:31)
[2020-06-16 05:12] LABS: Basophils % 0.1 %; Hematocrit 26.2 % (37.5-50.1); Hemoglobin 7.7 g/dL (12.9-16.9); Lymphocytes # 0.4 K/mcL (0.6-4.6); Lymphocytes % 4.8 %; Mean Corpuscular HGB Conc 29.4 g/dL (31.6-35.5); Mean Corpuscular Hemoglobin 24.8 pg (28.0-33.3); Mean Corpuscular Volume 84.2 fL (83.0-100.0); Monocytes # 0.2 K/mcL (0.0-1.3); Monocytes % 2.7 %; Neutrophils # 7.8 K/mcL (1.6-8.9); Nucleated Red Blood Cells 0.2 /100 WBC (0); Platelet Count 227 K/mcL (140-400); Red Blood Count 3.11 M/mcL (4.19-5.50); Red Cell Distribution Width 18.3 % (11.5-14.5); Segmented Neutrophils % 90.4 %; White Blood Count 8.6 K/mcL (4.3-11.1)
[2020-06-16 05:31] LABS: Blood Urea Nitrogen > 130 mg/dL (8-23); Calcium 8.4 mg/dL (8.6-10.3); Carbon Dioxide 20 mEq/L (23-29); Chloride 105 mEq/L (98-107); Glucose 201 mg/dL (70-105); Sodium 139 mEq/L (136-145); eGFR For African Americans 27 (> 60); eGFR For Non-African Americans 23 (> 60)
[2020-06-16] MEDS: Budesonide Neb 0.5 MG/2 ML IH SCH ×2 (07:27→20:53)
[2020-06-16] MEDS: Insulin DETEMIR 100 UNIT/ML X5UNITS SQ SCH ×2 (07:46→22:51)
[2020-06-16] MEDS: Gabapentin 100 MG CAPSULE PO SCH ×2 (07:46→22:49)
[2020-06-16] MEDS: amLODIPine 5 MG TABLET PO SCH (07:46)
[2020-06-16] MEDS: Isosorbide MONOnitrate (24 HR) 60 MG TAB.ER.24H PO SCH (07:47)
[2020-06-16] MEDS: Insulin LISPRO 300 UNITS/3 ML VIAL SQ SCH ×6 (07:48→17:18)
[2020-06-16] MEDS: Metoprolol XL (24 HR) Succ 25 MG TAB.ER.24H PO SCH (07:48)
[2020-06-16] MEDS: FLUoxetine 20 MG CAPSULE PO SCH (07:48)
[2020-06-16] MEDS: Cholecalciferol (D-3) 1,000 UNIT (25MCG) TABLET PO SCH (07:48)
[2020-06-16] MEDS: MethylPREDNISolone 40 MG/ML VIAL IVP SCH (07:49)
[2020-06-16 07:58] LABS: Alanine Aminotransferase 15 Units/L (7-52); Albumin 4.9 g/dL (3.5-5.7); Albumin/Globulin Ratio 2.3 (1.1-2.2); Alkaline Phosphatase 59 Units/L (34-104); Aspartate Amino Transferase 12 Units/L (13-39); Bilirubin,Direct 0.2 mg/dL (0.0-0.2); Bilirubin,Indirect 0.6 mg/dL (0.0-1.0); Bilirubin,Total 0.8 mg/dL (0.3-1.0); Globulin 2.1 g/dL (2.4-3.5)
[2020-06-16] MEDS ORDERED: 0.9 % Sodium Chloride 250 ML IVC SCH (13:15)
[2020-06-16 15:13] LABS: ABG Base Excess -2 mEq/L (-2 to 3); ABG HCO3 24 mEq/L (21-27); ABG Oxygen Saturation 97 % (95-98); ABG PCO2 47 mmHg (35-45); ABG PH 7.32 pH Units (7.32-7.45); ABG PO2 100 mmHg (85-104); ABG TCO2 25 mEq/L (20-26)
[2020-06-16] MEDS ORDERED: *HR* Heparin 10,000 UNIT/10 ML VIAL IV PRN (15:16)
[2020-06-16] MEDS ORDERED: 0.9 % Sodium Chloride 250 ML IVC PRN (15:16)
[2020-06-16] MEDS ORDERED: *HR* Heparin 5,000 UNIT/ML VIAL ONE (15:19)
[2020-06-16] MEDS ORDERED: 0.9 % Sodium Chloride 1,000 ML PRIME SCH (15:30)
[2020-06-16] MEDS ORDERED: 0.9 % Sodium Chloride 250 ML ONE (15:33)
[2020-06-16 17:17] LABS: Hepatitis B Surface Antibody 118.91 mIU/mL
[2020-06-16 17:27] LABS: Hepatitis B Surface Antigen Nonreactive (Nonreactive)
[2020-06-16 17:56] LABS: Hepatitis B Core IgM Nonreactive (Nonreactive)
[2020-06-17] MEDS: diazePAM 5 MG TABLET PO PRN (01:30)
[2020-06-17] MEDS: Ipratropium/Albuterol Neb 3 ML IH SCH ×6 (03:37→23:38)
[2020-06-17] MEDS: Pantoprazole 40 MG VIAL IVP SCH ×2 (06:19→17:42)
[2020-06-17 06:33] LABS: Basophils % 0.1 %; Eosinophils % 0.3 %; Hematocrit 26.7 % (37.5-50.1); Hemoglobin 8.1 g/dL (12.9-16.9); Immature Granulocytes % 1.4 % (0-4); Lymphocytes # 0.9 K/mcL (0.6-4.6); Lymphocytes % 8.4 %; Mean Corpuscular HGB Conc 30.3 g/dL (31.6-35.5); Mean Corpuscular Hemoglobin 25.3 pg (28.0-33.3); Mean Corpuscular Volume 83.4 fL (83.0-100.0); Mean Platelet Volume 11.3 fL (9.4-12.4); Monocytes # 0.9 K/mcL (0.0-1.3); Monocytes % 7.8 %; Neutrophils # 9.2 K/mcL (1.6-8.9); Platelet Count 209 K/mcL (140-400); Red Cell Distribution Width 18.3 % (11.5-14.5); White Blood Count 11.2 K/mcL (4.3-11.1)
[2020-06-17 06:55] LABS: Blood Urea Nitrogen > 130 mg/dL (8-23); Calcium 8.5 mg/dL (8.6-10.3); Carbon Dioxide 25 mEq/L (23-29); Chloride 106 mEq/L (98-107); Glucose 77 mg/dL (70-105); Potassium 4.3 mEq/L (3.5-5.1); Sodium 141 mEq/L (136-145); eGFR For African Americans 31 (> 60); eGFR For Non-African Americans 25 (> 60)
[2020-06-17] MEDS: Budesonide Neb 0.5 MG/2 ML IH SCH ×2 (07:16→20:00)
[2020-06-17] MEDS ORDERED: *HR* Heparin 10,000 UNIT/10 ML VIAL IV PRN (07:48)
[2020-06-17] MEDS ORDERED: 0.9 % Sodium Chloride 250 ML IVC PRN (07:48)
[2020-06-17] MEDS: FLUoxetine 20 MG CAPSULE PO SCH (08:13)
[2020-06-17] MEDS: Cholecalciferol (D-3) 1,000 UNIT (25MCG) TABLET PO SCH (08:13)
[2020-06-17] MEDS: Metoprolol XL (24 HR) Succ 25 MG TAB.ER.24H PO SCH (08:13)
[2020-06-17] MEDS: Isosorbide MONOnitrate (24 HR) 60 MG TAB.ER.24H PO SCH (08:14)
[2020-06-17] MEDS: amLODIPine 5 MG TABLET PO SCH (08:14)
[2020-06-17] MEDS: Gabapentin 100 MG CAPSULE PO SCH ×2 (08:14→21:00)
[2020-06-17] MEDS: predniSONE 20 MG TABLET PO SCH (08:14)
[2020-06-17] MEDS: Insulin LISPRO 300 UNITS/3 ML VIAL SQ SCH ×7 (08:19→21:00)
[2020-06-17] MEDS: Insulin DETEMIR 100 UNIT/ML X5UNITS SQ SCH ×2 (08:20→21:00)
[2020-06-17] MEDS ORDERED: predniSONE 20 MG TABLET PO SCH (16:00)
[2020-06-18] MEDS: Ipratropium/Albuterol Neb 3 ML IH SCH ×5 (03:34→20:35)
[2020-06-18] MEDS: Budesonide Neb 0.5 MG/2 ML IH SCH ×2 (07:43→20:35)
[2020-06-18] MEDS: FLUoxetine 20 MG CAPSULE PO SCH (09:01)
[2020-06-18] MEDS: Gabapentin 100 MG CAPSULE PO SCH ×2 (09:01→21:04)
[2020-06-18] MEDS: Cholecalciferol (D-3) 1,000 UNIT (25MCG) TABLET PO SCH (09:01)
[2020-06-18] MEDS: predniSONE 20 MG TABLET PO SCH (09:01)
[2020-06-18 09:04] LABS: Basophils % 0.1 %; Eosinophils % 0.3 %; Hematocrit 27.2 % (37.5-50.1); Hemoglobin 8.1 g/dL (12.9-16.9); Immature Granulocytes % 1.5 % (0-4); Lymphocytes # 0.6 K/mcL (0.6-4.6); Lymphocytes % 5.9 %; Mean Corpuscular HGB Conc 29.8 g/dL (31.6-35.5); Mean Corpuscular Hemoglobin 24.6 pg (28.0-33.3); Mean Corpuscular Volume 82.7 fL (83.0-100.0); Mean Platelet Volume 11.3 fL (9.4-12.4); Monocytes # 0.7 K/mcL (0.0-1.3); Monocytes % 6.3 %; Neutrophils # 8.9 K/mcL (1.6-8.9); Nucleated Red Blood Cells 0.2 /100 WBC (0); Platelet Count 204 K/mcL (140-400); Red Blood Count 3.29 M/mcL (4.19-5.50); Red Cell Distribution Width 18.6 % (11.5-14.5); Segmented Neutrophils % 85.9 %; White Blood Count 10.3 K/mcL (4.3-11.1)
[2020-06-18] MEDS: Insulin LISPRO 300 UNITS/3 ML VIAL SQ SCH ×6 (09:04→17:13)
[2020-06-18] MEDS ORDERED: *HR* Heparin 10,000 UNIT/10 ML VIAL IV PRN (09:10)
[2020-06-18] MEDS ORDERED: 0.9 % Sodium Chloride 250 ML IVC PRN (09:10)
[2020-06-18] MEDS: Insulin DETEMIR 100 UNIT/ML X5UNITS SQ SCH (09:18)
[2020-06-18 09:22] LABS: Calcium 8.3 mg/dL (8.6-10.3); Potassium 4.6 mEq/L (3.5-5.1)
[2020-06-18] MEDS: Pantoprazole 40 MG VIAL IVP SCH ×2 (14:56→17:16)
[2020-06-18] MEDS: amLODIPine 5 MG TABLET PO SCH (15:28)
[2020-06-18] MEDS: Metoprolol XL (24 HR) Succ 25 MG TAB.ER.24H PO SCH (15:28)
[2020-06-18] MEDS: Isosorbide MONOnitrate (24 HR) 60 MG TAB.ER.24H PO SCH (15:28)
[2020-06-19] MEDS: Ipratropium/Albuterol Neb 3 ML IH SCH ×6 (00:18→19:49)
[2020-06-19 03:19] LABS: Basophils % 0.1 %; Eosinophils % 0.1 %; Hematocrit 26.4 % (37.5-50.1); Hemoglobin 7.8 g/dL (12.9-16.9); Immature Granulocytes % 1.5 % (0-4); Lymphocytes # 0.5 K/mcL (0.6-4.6); Lymphocytes % 4.4 %; Mean Corpuscular HGB Conc 29.5 g/dL (31.6-35.5); Mean Corpuscular Hemoglobin 25.1 pg (28.0-33.3); Mean Corpuscular Volume 84.9 fL (83.0-100.0); Mean Platelet Volume 11.5 fL (9.4-12.4); Monocytes # 0.4 K/mcL (0.0-1.3); Monocytes % 3.2 %; Neutrophils # 10.1 K/mcL (1.6-8.9); Platelet Count 175 K/mcL (140-400); Red Blood Count 3.11 M/mcL (4.19-5.50); Red Cell Distribution Width 18.7 % (11.5-14.5); Segmented Neutrophils % 90.7 %; White Blood Count 11.1 K/mcL (4.3-11.1)
[2020-06-19 03:35] LABS: Calcium 8.2 mg/dL (8.6-10.3); Potassium 5.5 mEq/L (3.5-5.1)
[2020-06-19] MEDS: diazePAM 5 MG TABLET PO PRN (04:13)
[2020-06-19] MEDS: Pantoprazole 40 MG VIAL IVP SCH ×2 (05:45→19:09)
[2020-06-19] MEDS: Budesonide Neb 0.5 MG/2 ML IH SCH ×2 (08:23→19:49)
[2020-06-19] MEDS: Insulin DETEMIR 100 UNIT/ML X5UNITS SQ SCH ×2 (08:31→09:57)
[2020-06-19] MEDS: Insulin LISPRO 300 UNITS/3 ML VIAL SQ SCH ×7 (08:31→17:30)
[2020-06-19] MEDS: Gabapentin 100 MG CAPSULE PO SCH (09:42)
[2020-06-19] MEDS: FLUoxetine 20 MG CAPSULE PO SCH (09:42)
[2020-06-19] MEDS: Isosorbide MONOnitrate (24 HR) 60 MG TAB.ER.24H PO SCH (09:42)
[2020-06-19] MEDS: predniSONE 20 MG TABLET PO SCH (09:42)
[2020-06-19] MEDS: amLODIPine 5 MG TABLET PO SCH (09:42)
[2020-06-19] MEDS: Aspirin 81 MG TAB.CHEW PO SCH (09:43)
[2020-06-19] MEDS: Metoprolol XL (24 HR) Succ 25 MG TAB.ER.24H PO SCH (09:43)
[2020-06-19] MEDS: Cholecalciferol (D-3) 1,000 UNIT (25MCG) TABLET PO SCH (09:43)
[2020-06-20] MEDS: Ipratropium/Albuterol Neb 3 ML IH SCH ×7 (00:03→23:46)
[2020-06-20 04:31] LABS: Basophils % 0.1 %; Eosinophils % 0.1 %; Hematocrit 25.5 % (37.5-50.1); Hemoglobin 7.6 g/dL (12.9-16.9); Immature Granulocytes % 1.7 % (0-4); Lymphocytes # 0.5 K/mcL (0.6-4.6); Lymphocytes % 5.4 %; Mean Corpuscular HGB Conc 29.8 g/dL (31.6-35.5); Mean Corpuscular Hemoglobin 25.9 pg (28.0-33.3); Mean Platelet Volume 12.3 fL (9.4-12.4); Monocytes # 0.2 K/mcL (0.0-1.3); Monocytes % 2.4 %; Nucleated Red Blood Cells 0.2 /100 WBC (0); Platelet Count 175 K/mcL (140-400); Red Blood Count 2.93 M/mcL (4.19-5.50); Red Cell Distribution Width 19.1 % (11.5-14.5); Segmented Neutrophils % 90.3 %; White Blood Count 8.8 K/mcL (4.3-11.1)
[2020-06-20 04:48] LABS: Calcium 7.9 mg/dL (8.6-10.3); Potassium 5.2 mEq/L (3.5-5.1)
[2020-06-20] MEDS: Pantoprazole 40 MG VIAL IVP SCH ×2 (05:36→16:50)
[2020-06-20] MEDS: Budesonide Neb 0.5 MG/2 ML IH SCH ×2 (07:33→20:07)
[2020-06-20] MEDS ORDERED: *HR* Heparin 10,000 UNIT/10 ML VIAL IV PRN (08:00)
[2020-06-20] MEDS: Insulin LISPRO 300 UNITS/3 ML VIAL SQ SCH ×7 (08:01→20:37)
[2020-06-20] MEDS: Insulin DETEMIR 100 UNIT/ML X5UNITS SQ SCH ×3 (08:02→20:38)
[2020-06-20] MEDS: Gabapentin 100 MG CAPSULE PO SCH ×3 (08:03→20:38)
[2020-06-20] MEDS: FLUoxetine 20 MG CAPSULE PO SCH (08:03)
[2020-06-20] MEDS: amLODIPine 5 MG TABLET PO SCH (08:03)
[2020-06-20] MEDS: Cholecalciferol (D-3) 1,000 UNIT (25MCG) TABLET PO SCH (08:03)
[2020-06-20] MEDS: predniSONE 20 MG TABLET PO SCH (08:04)
[2020-06-20] MEDS: Metoprolol XL (24 HR) Succ 25 MG TAB.ER.24H PO SCH (08:04)
[2020-06-20] MEDS: Isosorbide MONOnitrate (24 HR) 60 MG TAB.ER.24H PO SCH (08:04)
[2020-06-20] MEDS: Aspirin 81 MG TAB.CHEW PO SCH (08:04)
[2020-06-20] MEDS: *HR* OxyCODONE/APAP 5/325 TABLET PO PRN ×2 (09:06→20:42)
[2020-06-20 10:20] LABS: Albumin 4.2 g/dL (3.5-5.7); Bilirubin,Direct 0.2 mg/dL (0.0-0.2); Bilirubin,Indirect 0.8 mg/dL (0.0-1.0); Globulin 2.1 g/dL (2.4-3.5); Total Protein 6.3 g/dL (6.4-8.9)
[2020-06-21] MEDS: Ipratropium/Albuterol Neb 3 ML IH SCH ×6 (03:48→23:38)
[2020-06-21 04:16] LABS: Basophils % 0.1 %; Eosinophils # 0.1 K/mcL (0.0-0.6); Eosinophils % 0.5 %; Hemoglobin 7.7 g/dL (12.9-16.9); Immature Granulocytes % 1.5 % (0-4); Lymphocytes # 0.7 K/mcL (0.6-4.6); Lymphocytes % 7.3 %; Mean Corpuscular HGB Conc 29.6 g/dL (31.6-35.5); Mean Corpuscular Hemoglobin 25.5 pg (28.0-33.3); Mean Corpuscular Volume 86.1 fL (83.0-100.0); Mean Platelet Volume 12.1 fL (9.4-12.4); Monocytes # 0.5 K/mcL (0.0-1.3); Monocytes % 4.9 %; Neutrophils # 7.9 K/mcL (1.6-8.9); Platelet Count 158 K/mcL (140-400); Red Blood Count 3.02 M/mcL (4.19-5.50); Red Cell Distribution Width 18.7 % (11.5-14.5); Segmented Neutrophils % 85.7 %; White Blood Count 9.3 K/mcL (4.3-11.1)
[2020-06-21 04:33] LABS: Calcium 8.2 mg/dL (8.6-10.3); Potassium 4.2 mEq/L (3.5-5.1)
[2020-06-21] MEDS: Pantoprazole 40 MG VIAL IVP SCH ×2 (04:59→17:27)
[2020-06-21] MEDS: Budesonide Neb 0.5 MG/2 ML IH SCH ×2 (07:33→19:24)
[2020-06-21] MEDS ORDERED: 0.9 % Sodium Chloride 250 ML IVC PRN (07:34)
[2020-06-21] MEDS ORDERED: *HR* Heparin 10,000 UNIT/10 ML VIAL IV PRN (07:34)
[2020-06-21 08:04] LABS: INR 1.1; Prothrombin Time 12.9 Seconds (9.4-12.1)
[2020-06-21] MEDS: Insulin LISPRO 300 UNITS/3 ML VIAL SQ SCH ×4 (08:10→21:06)
[2020-06-21] MEDS ORDERED: Heparin 1,000 UNITS/500 mL 500 ML ONE (09:55)
[2020-06-21] MEDS ORDERED: Lidocaine/EPI 1:100k 1% 50 ML VIAL ONE (09:55)
[2020-06-21] MEDS ORDERED: *HR* Midazolam HCl 2 MG/2 ML VIAL ONE (10:03)
[2020-06-21] MEDS ORDERED: *HR* FentaNYL (PF) 100 MCG/2 ML VIAL ONE (10:03)
[2020-06-21] MEDS ORDERED: 0.9 % Sodium Chloride 500 ML ONE (10:04)
[2020-06-21] MEDS ORDERED: *HR* FentaNYL (PF) 100 MCG/2 ML VIAL IVP ONE (10:14)
[2020-06-21] MEDS ORDERED: *HR* Midazolam HCl 2 MG/2 ML VIAL IVP ONE (10:14)
[2020-06-21] MEDS ORDERED: *HR* Heparin 5,000 UNIT/ML VIAL ONE (10:27)
[2020-06-21] MEDS ORDERED: ceFAZolin 2,000 MG in Water for inj. (sterile) 20 ML IVP ONE ×2 (10:28→16:00)
[2020-06-21] MEDS ORDERED: CeFAZolin 2,000 MG/50 ML BAG IVPB ONE (11:00)
[2020-06-21] MEDS: amLODIPine 5 MG TABLET PO SCH (11:26)
[2020-06-21] MEDS: Aspirin 81 MG TAB.CHEW PO SCH (11:26)
[2020-06-21] MEDS: Isosorbide MONOnitrate (24 HR) 60 MG TAB.ER.24H PO SCH (11:26)
[2020-06-21] MEDS: predniSONE 20 MG TABLET PO SCH (11:26)
[2020-06-21] MEDS: Gabapentin 100 MG CAPSULE PO SCH ×2 (11:26→21:06)
[2020-06-21] MEDS: Insulin DETEMIR 100 UNIT/ML X5UNITS SQ SCH ×2 (11:26→21:06)
[2020-06-21] MEDS: Cholecalciferol (D-3) 1,000 UNIT (25MCG) TABLET PO SCH (11:26)
[2020-06-21] MEDS: Metoprolol XL (24 HR) Succ 25 MG TAB.ER.24H PO SCH (11:26)
[2020-06-21] MEDS: FLUoxetine 20 MG CAPSULE PO SCH (11:27)
[2020-06-21] MEDS: *HR* OxyCODONE/APAP 5/325 TABLET PO PRN ×2 (11:27→18:17)
[2020-06-22] MEDS: Ipratropium/Albuterol Neb 3 ML IH SCH ×6 (03:51→23:51)
[2020-06-22 04:02] LABS: Hematocrit 27.3 % (37.5-50.1); Mean Corpuscular HGB Conc 29.3 g/dL (31.6-35.5); Mean Corpuscular Hemoglobin 25.2 pg (28.0-33.3); Mean Corpuscular Volume 85.8 fL (83.0-100.0); Mean Platelet Volume 12.9 fL (9.4-12.4); Platelet Count 154 K/mcL (140-400); Red Blood Count 3.18 M/mcL (4.19-5.50); Red Cell Distribution Width 18.8 % (11.5-14.5); White Blood Count 10.7 K/mcL (4.3-11.1)
[2020-06-22 04:22] LABS: Calcium 8.1 mg/dL (8.6-10.3); Potassium 4.8 mEq/L (3.5-5.1)
[2020-06-22] MEDS: Pantoprazole 40 MG VIAL IVP SCH ×2 (05:12→16:51)
[2020-06-22] MEDS: Budesonide Neb 0.5 MG/2 ML IH SCH ×2 (07:38→20:44)
[2020-06-22] MEDS: Insulin LISPRO 300 UNITS/3 ML VIAL SQ SCH ×4 (08:24→20:41)
[2020-06-22] MEDS: amLODIPine 5 MG TABLET PO SCH (08:25)
[2020-06-22] MEDS: Aspirin 81 MG TAB.CHEW PO SCH (08:25)
[2020-06-22] MEDS: Isosorbide MONOnitrate (24 HR) 60 MG TAB.ER.24H PO SCH (08:25)
[2020-06-22] MEDS: Gabapentin 100 MG CAPSULE PO SCH ×2 (08:25→20:41)
[2020-06-22] MEDS: FLUoxetine 20 MG CAPSULE PO SCH (08:25)
[2020-06-22] MEDS: predniSONE 20 MG TABLET PO SCH (08:25)
[2020-06-22] MEDS: Cholecalciferol (D-3) 1,000 UNIT (25MCG) TABLET PO SCH (08:26)
[2020-06-22] MEDS: *HR* OxyCODONE/APAP 5/325 TABLET PO PRN ×2 (08:26→18:37)
[2020-06-22] MEDS: Metoprolol XL (24 HR) Succ 25 MG TAB.ER.24H PO SCH (08:26)
[2020-06-22] MEDS: Insulin DETEMIR 100 UNIT/ML X5UNITS SQ SCH ×2 (08:26→20:43)
[2020-06-22] MEDS ORDERED: 0.9 % Sodium Chloride 250 ML IVC PRN (08:51)
[2020-06-22] MEDS ORDERED: *HR* Heparin 10,000 UNIT/10 ML VIAL IV PRN (08:51)
[2020-06-22] MEDS: diazePAM 5 MG TABLET PO PRN (18:37)
[2020-06-23] MEDS: Ipratropium/Albuterol Neb 3 ML IH SCH ×6 (03:13→22:51)
[2020-06-23] MEDS: Pantoprazole 40 MG VIAL IVP SCH (05:33)
[2020-06-23 07:15] LABS: Hematocrit 29.1 % (37.5-50.1); Hemoglobin 8.6 g/dL (12.9-16.9); Mean Corpuscular HGB Conc 29.6 g/dL (31.6-35.5); Mean Corpuscular Hemoglobin 25.3 pg (28.0-33.3); Mean Corpuscular Volume 85.6 fL (83.0-100.0); Mean Platelet Volume 12.6 fL (9.4-12.4); Platelet Count 168 K/mcL (140-400); White Blood Count 11.7 K/mcL (4.3-11.1)
[2020-06-23 07:34] LABS: Calcium 8.5 mg/dL (8.6-10.3); Potassium 4.3 mEq/L (3.5-5.1)
[2020-06-23] MEDS ORDERED: *HR* Heparin 10,000 UNIT/10 ML VIAL IV PRN (07:42)
[2020-06-23] MEDS ORDERED: 0.9 % Sodium Chloride 250 ML IVC PRN (07:42)
[2020-06-23] MEDS ORDERED: 0.9 % Sodium Chloride 1,000 ML PRIME SCH (07:45)
[2020-06-23] MEDS: amLODIPine 5 MG TABLET PO SCH (07:56)
[2020-06-23] MEDS: predniSONE 20 MG TABLET PO SCH (07:56)
[2020-06-23] MEDS: FLUoxetine 20 MG CAPSULE PO SCH (07:56)
[2020-06-23] MEDS: Gabapentin 100 MG CAPSULE PO SCH ×2 (07:56→20:52)
[2020-06-23] MEDS: Isosorbide MONOnitrate (24 HR) 60 MG TAB.ER.24H PO SCH (07:56)
[2020-06-23] MEDS: Insulin DETEMIR 100 UNIT/ML X5UNITS SQ SCH ×2 (07:57→21:21)
[2020-06-23] MEDS: Aspirin 81 MG TAB.CHEW PO SCH (07:57)
[2020-06-23] MEDS: Metoprolol XL (24 HR) Succ 25 MG TAB.ER.24H PO SCH (07:57)
[2020-06-23] MEDS: Insulin LISPRO 300 UNITS/3 ML VIAL SQ SCH ×4 (07:57→20:53)
[2020-06-23] MEDS: *HR* OxyCODONE/APAP 5/325 TABLET PO PRN ×2 (07:57→21:21)
[2020-06-23] MEDS: Cholecalciferol (D-3) 1,000 UNIT (25MCG) TABLET PO SCH (07:57)
[2020-06-23] MEDS: Budesonide Neb 0.5 MG/2 ML IH SCH ×2 (08:12→22:51)
[2020-06-23] MEDS: diazePAM 5 MG TABLET PO PRN (13:06)
[2020-06-24] MEDS: Ipratropium/Albuterol Neb 3 ML IH SCH ×3 (03:43→11:52)
[2020-06-24 04:21] LABS: Hematocrit 29.4 % (37.5-50.1); Hemoglobin 8.7 g/dL (12.9-16.9); Mean Corpuscular HGB Conc 29.6 g/dL (31.6-35.5); Mean Corpuscular Hemoglobin 25.4 pg (28.0-33.3); Mean Corpuscular Volume 85.7 fL (83.0-100.0); Mean Platelet Volume 11.8 fL (9.4-12.4); Platelet Count 155 K/mcL (140-400); Red Blood Count 3.43 M/mcL (4.19-5.50); Red Cell Distribution Width 19.2 % (11.5-14.5)
[2020-06-24 04:40] LABS: Calcium 8.5 mg/dL (8.6-10.3); Potassium 4.5 mEq/L (3.5-5.1)
[2020-06-24] MEDS: *HR* OxyCODONE/APAP 5/325 TABLET PO PRN (06:03)
[2020-06-24] MEDS: Budesonide Neb 0.5 MG/2 ML IH SCH (07:28)
[2020-06-24] MEDS ORDERED: 0.9 % Sodium Chloride 250 ML IVC PRN (07:34)
[2020-06-24] MEDS ORDERED: *HR* Heparin 10,000 UNIT/10 ML VIAL IV PRN (07:34)
[2020-06-24] MEDS: Aspirin 81 MG TAB.CHEW PO SCH (08:05)
[2020-06-24] MEDS: FLUoxetine 20 MG CAPSULE PO SCH (08:05)
[2020-06-24] MEDS: Cholecalciferol (D-3) 1,000 UNIT (25MCG) TABLET PO SCH (08:05)
[2020-06-24] MEDS: predniSONE 20 MG TABLET PO SCH (08:05)
[2020-06-24] MEDS: Gabapentin 100 MG CAPSULE PO SCH (08:05)
[2020-06-24] MEDS: Isosorbide MONOnitrate (24 HR) 60 MG TAB.ER.24H PO SCH (08:06)
[2020-06-24] MEDS: Metoprolol XL (24 HR) Succ 25 MG TAB.ER.24H PO SCH (08:08)
[2020-06-24] MEDS: amLODIPine 5 MG TABLET PO SCH (08:08)
[2020-06-24] MEDS: Insulin LISPRO 300 UNITS/3 ML VIAL SQ SCH ×2 (08:12→13:28)
[2020-06-24] MEDS: Insulin DETEMIR 100 UNIT/ML X5UNITS SQ SCH (08:15)
[2020-06-24 10:58] VITALS: BP 124/69
== END 2020-06-24 15:23 | disposition home health service (06) | DRG 194 ==
LOC: 2ANU 13:49 → EMEROOARM 13:49 → SUATTDRO 16:43 → 2ANU 17:42
PROVIDERS: ADMIT Student in an Organized Health Care Education/Training Program; ATTEND Internal Medicine
PROC: IRPERMA (2020-06-21 12:00)

== ENCOUNTER 2021-01-25 14:18 | Inpatient (IN) ==
[2021-01-25] MEDS ORDERED: *HR* HYDROcodone/Acet 5/325 mg TABLET PO PRN (17:39)
[2021-01-25] MEDS ORDERED: Acetaminophen 325 MG TABLET PO PRN (17:39)
[2021-01-25] MEDS ORDERED: *HR* Promethazine 25 MG/ML VIAL IM PRN (17:39)
[2021-01-25] MEDS ORDERED: Melatonin 3 MG TABLET PO PRN (17:39)
[2021-01-25] MEDS ORDERED: Ondansetron 4 MG/2 ML VIAL IVP PRN (17:39)
[2021-01-25] MEDS ORDERED: Naloxone 0.4 MG/ML INJ IVP PRN (17:39)
[2021-01-25] MEDS ORDERED: *HR* OxyCODONE Immed Rel 5 MG TABLET PO PRN (17:39)
[2021-01-25] MEDS ORDERED: Albuterol 2.5 MG/3 ML NEBULIZER IH PRN (17:44)
[2021-01-25] MEDS ORDERED: *HR* Dextrose 50 % in Water (Vial) 50 ML VIAL IVP PRN (17:56)
[2021-01-25] MEDS ORDERED: Dextrose Gel 15 GM/37.5 ML TUBE PO PRN ×2 (17:56)
[2021-01-25] MEDS ORDERED: D5% in Water 1,000 ML IVC PRN (17:56)
[2021-01-25] MEDS: 0.9 % Sodium Chloride 1,000 ML IVC SCH (18:12)
[2021-01-25] MEDS: Insulin DETEMIR 100 UNIT/ML X5UNITS SUBQ SCH (21:54)
[2021-01-25] MEDS: Insulin LISPRO 300 UNITS/3 ML VIAL SUBQ SCH (22:04)
[2021-01-26 01:10] LABS: Basophils % 0.1 %; Hematocrit 36.8 % (37.5-50.1); Hemoglobin 11.3 g/dL (12.9-16.9); Immature Granulocytes % 0.5 % (0-4); Lymphocytes # 0.7 K/mcL (0.6-4.6); Lymphocytes % 5.7 %; Mean Corpuscular HGB Conc 30.7 g/dL (31.6-35.5); Mean Corpuscular Volume 84.6 fL (83.0-100.0); Mean Platelet Volume 10.5 fL (9.4-12.4); Monocytes # 0.4 K/mcL (0.0-1.3); Monocytes % 3.1 %; Neutrophils # 10.6 K/mcL (1.6-8.9); Platelet Count 251 K/mcL (140-400); Red Blood Count 4.35 M/mcL (4.19-5.50); Red Cell Distribution Width 15.4 % (11.5-14.5); Segmented Neutrophils % 90.6 %; White Blood Count 11.7 K/mcL (4.3-11.1)
[2021-01-26 01:18] LABS: INR 1.3; Prothrombin Time 14.7 Seconds (9.4-12.1)
[2021-01-26 01:32] LABS: Calcium 8.2 mg/dL (8.6-10.3); Chol/HDL Ratio 6.8 (0-4.9); Magnesium 1.8 mg/dL (1.6-2.6); Potassium 3.2 mEq/L (3.5-5.1)
[2021-01-26] MEDS: 0.9 % Sodium Chloride 1,000 ML IVC SCH (05:47)
[2021-01-26] MEDS: Insulin DETEMIR 100 UNIT/ML X5UNITS SUBQ SCH ×2 (07:51→20:08)
[2021-01-26] MEDS: amLODIPine 5 MG TABLET PO SCH (07:51)
[2021-01-26] MEDS: Insulin LISPRO 300 UNITS/3 ML VIAL SUBQ SCH ×4 (07:53→20:09)
[2021-01-26] MEDS ORDERED: Potassium Chloride 40 MEQ, Lidocaine 1% 2 ML in 0.9 % Sodium Chloride 500 ML IVPB ONE (08:30)
[2021-01-26] MEDS ORDERED: Aspirin Enteric Coated 81 MG Tablet PO SCH (09:00)
[2021-01-26] MEDS: Aspirin Enteric Coated 81 MG Tablet PO SCH (09:08)
[2021-01-26] MEDS ORDERED: Perflutren Lipid Microsphere 1.3 ML in 0.9 % Sodium Chloride 8.7 ML IVP PRN (13:30)
[2021-01-26] MEDS ORDERED: SUMAtriptan succinate 50 MG TABLET PO PRN (14:01)
[2021-01-26] MEDS ORDERED: diazePAM 5 MG TABLET PO PRN (14:01)
[2021-01-26] MEDS ORDERED: Ergocalciferol (VIT D2) 50,000 UNIT (1.25MG) CAP PO SCH (14:15)
[2021-01-26] MEDS ORDERED: 0.9 % Sodium Chloride 1,000 ML IVC SCH (14:45)
[2021-01-26] MEDS ORDERED: Metoclopramide 10 MG/10 ML UD.LIQ PO ONE (14:59)
[2021-01-26 16:31] LABS: Bacteria,Urine Few per hpf (None-Few); Bilirubin,Urine Negative (Negative); Blood,Urine Small (Negative); Clarity,Urine Turbid (Clear); Color,Urine Light-Yellow (Yellow); Glucose,Urine (UA) 300 mg/dL (Normal); Ketones,Urine Negative (Negative); Leukocyte Esterase,Urine Large (Negative); Nitrite,Urine Negative (Negative); Protein,Urine 70 mg/dL (Neg-Trace); Specific Gravity,Urine 1.012 (1.010-1.025); Squamous Epithelial Cell,Urine Few per hpf (None-Few); Urobilinogen,Urine Normal (Normal); WBC,Urine TNTC per hpf (0-3)
[2021-01-26] MEDS: Piperacillin/Tazobactam 3.375 GM in 0.9 % Sodium Chloride Mini Bag 100 ML IVPB SCH ×2 (17:03→23:42)
[2021-01-26] MEDS: *HR* Heparin 5,000 UNIT/ML VIAL SQ SCH (17:37)
[2021-01-26] MEDS ORDERED: MethylPREDNISolone 40 MG/ML VIAL IVP ONE (18:06)
[2021-01-26] MEDS ORDERED: Albuterol 2.5 MG/3 ML NEBULIZER IH PRN (18:07)
[2021-01-26] MEDS ORDERED: *HR* Metoprolol 5 MG/5 ML VIAL IVP ONE (18:59)
[2021-01-26] MEDS ORDERED: Ipratropium/Albuterol Neb 3 ML IH SCH (20:00)
[2021-01-26] MEDS: Gabapentin 100 MG CAPSULE PO SCH (20:07)
[2021-01-26] MEDS: hydrALAZINE 25 MG TABLET PO SCH (20:08)
[2021-01-26] MEDS: Ipratropium Neb 0.5 MG NEBULIZER IH SCH ×2 (20:58→23:16)
[2021-01-26] MEDS ORDERED: Torsemide 20 MG TABLET PO SCH (21:00)
[2021-01-26] MEDS: Levalbuterol Neb 1.25 MG/3 ML IH SCH (23:16)
[2021-01-27] MEDS: Ipratropium Neb 0.5 MG NEBULIZER IH SCH ×6 (03:50→23:06)
[2021-01-27] MEDS: Levalbuterol Neb 1.25 MG/3 ML IH SCH ×4 (03:50→20:02)
[2021-01-27] MEDS: *HR* Heparin 5,000 UNIT/ML VIAL SQ SCH ×3 (05:19→16:13)
[2021-01-27 07:06] LABS: Hematocrit 36.1 % (37.5-50.1); Hemoglobin 11.2 g/dL (12.9-16.9); Mean Corpuscular Hemoglobin 26.1 pg (28.0-33.3); Mean Corpuscular Volume 84.1 fL (83.0-100.0); Mean Platelet Volume 10.2 fL (9.4-12.4); Platelet Count 221 K/mcL (140-400); Red Blood Count 4.29 M/mcL (4.19-5.50); Red Cell Distribution Width 15.6 % (11.5-14.5); White Blood Count 8.4 K/mcL (4.3-11.1)
[2021-01-27 07:25] LABS: Calcium 8.2 mg/dL (8.6-10.3); Potassium 3.6 mEq/L (3.5-5.1)
[2021-01-27] MEDS: Insulin LISPRO 300 UNITS/3 ML VIAL SUBQ SCH ×4 (08:24→21:22)
[2021-01-27] MEDS: Gabapentin 100 MG CAPSULE PO SCH ×2 (08:25→21:21)
[2021-01-27] MEDS: Aspirin Enteric Coated 81 MG Tablet PO SCH (08:25)
[2021-01-27] MEDS: hydrALAZINE 25 MG TABLET PO SCH ×2 (08:26→21:21)
[2021-01-27] MEDS: predniSONE 20 MG TABLET PO SCH (08:26)
[2021-01-27] MEDS: amLODIPine 5 MG TABLET PO SCH (08:26)
[2021-01-27] MEDS: Metoprolol XL (24 HR) Succ 50 MG TAB.ER.24H PO SCH (08:26)
[2021-01-27] MEDS: Isosorbide MONOnitrate (24 HR) 60 MG TAB.ER.24H PO SCH (08:26)
[2021-01-27] MEDS: FLUoxetine 20 MG CAPSULE PO SCH (08:26)
[2021-01-27] MEDS: Cholecalciferol (D-3) 1,000 UNIT (25MCG) TABLET PO SCH (08:26)
[2021-01-27] MEDS: Piperacillin/Tazobactam 3.375 GM in 0.9 % Sodium Chloride Mini Bag 100 ML IVPB SCH ×2 (08:27→16:07)
[2021-01-27] MEDS: Insulin DETEMIR 100 UNIT/ML X5UNITS SUBQ SCH ×2 (08:32→21:22)
[2021-01-28] MEDS: Piperacillin/Tazobactam 3.375 GM in 0.9 % Sodium Chloride Mini Bag 100 ML IVPB SCH ×2 (01:25→08:43)
[2021-01-28 02:40] LABS: Hematocrit 33.1 % (37.5-50.1); Hemoglobin 9.9 g/dL (12.9-16.9); Mean Corpuscular HGB Conc 29.9 g/dL (31.6-35.5); Mean Corpuscular Hemoglobin 25.6 pg (28.0-33.3); Mean Corpuscular Volume 85.5 fL (83.0-100.0); Mean Platelet Volume 10.1 fL (9.4-12.4); Platelet Count 226 K/mcL (140-400); Red Blood Count 3.87 M/mcL (4.19-5.50); Red Cell Distribution Width 15.8 % (11.5-14.5); White Blood Count 9.7 K/mcL (4.3-11.1)
[2021-01-28 02:57] LABS: Potassium 3.6 mEq/L (3.5-5.1)
[2021-01-28] MEDS: Levalbuterol Neb 1.25 MG/3 ML IH SCH ×2 (03:42→11:07)
[2021-01-28] MEDS: Ipratropium Neb 0.5 MG NEBULIZER IH SCH ×3 (03:42→11:07)
[2021-01-28] MEDS: *HR* Heparin 5,000 UNIT/ML VIAL SQ SCH (07:38)
[2021-01-28] MEDS ORDERED: Albumin 25% 25gram/100mL 25 GM/100 ML IV.SOLN IVPB ONE (08:24)
[2021-01-28] MEDS: Gabapentin 100 MG CAPSULE PO SCH (08:40)
[2021-01-28] MEDS: Cholecalciferol (D-3) 1,000 UNIT (25MCG) TABLET PO SCH (08:41)
[2021-01-28] MEDS: predniSONE 20 MG TABLET PO SCH (08:42)
[2021-01-28] MEDS: Aspirin Enteric Coated 81 MG Tablet PO SCH (08:43)
[2021-01-28] MEDS: hydrALAZINE 25 MG TABLET PO SCH (08:43)
[2021-01-28] MEDS: Metoprolol XL (24 HR) Succ 50 MG TAB.ER.24H PO SCH (08:43)
[2021-01-28] MEDS: Insulin LISPRO 300 UNITS/3 ML VIAL SUBQ SCH ×3 (08:45→11:51)
[2021-01-28] MEDS: Insulin DETEMIR 100 UNIT/ML X5UNITS SUBQ SCH (08:56)
[2021-01-28] MEDS: Isosorbide MONOnitrate (24 HR) 60 MG TAB.ER.24H PO SCH (08:56)
[2021-01-28] MEDS: amLODIPine 5 MG TABLET PO SCH (08:56)
[2021-01-28 09:00] LABS: Hematocrit 35.6 % (37.5-50.1); Hemoglobin 10.9 g/dL (12.9-16.9)
[2021-01-28] MEDS: FLUoxetine 20 MG CAPSULE PO SCH (09:00)
[2021-01-28 11:37] VITALS: BP 157/91; PULSE 83; TEMP 98.6; O2SAT 97
== END 2021-01-28 16:10 | disposition home health service (06) | DRG 469 ==
LOC: 2ANU → SUATTDRO 16:16
PROVIDERS: ADMIT Pharmacist; ATTEND Family Medicine